=== PATIENT | female | born 1985 | race American Indian/Alaskan Native ===

== ENCOUNTER 2017-07-12 08:38 | Inpatient (IN) | payer OTHER ==
[2017-07-12] MEDS ORDERED: Albuterol 0.083% Inhal Sol (2.5 mg/3 mL) UD ONE (08:45)
[2017-07-12] MEDS: Albuterol-Ipratrop 3 mg / 0.5 (3 ml) UD ONE ×2 (08:45→09:28)
[2017-07-12] MEDS: Albuterol-Ipratrop 3 mg / 0.5 (3 ml) UD IH SCH ×4 (08:45→20:32)
--- NOTE | 2017-07-12 09:08 | ED PDOC ---
Arrival/HPI - General Chief Complaint: Shortness Of Breath Time Seen by Provider: 07/12/17 08:50 Historian: Patient - History of Present Illness Narrative History of Present Illness (Text): 07/12/17 08:26 A 32 year old female, whose past medical history includes asthma, hypertension, endometriosis and migraines, presents to the emergency department complaining of cough and exacerbation for 4 days. Patient states experiencing nasal congestion, chest discomfort she describes as "feeling tight", but denies of any fever, chills, abdominal pain, nausea, vomiting, or any other complaints. Patient reports having seasonal allergies and is a smoker. She notes whenever she attempts to quit smoking, she begins experiencing similar symptoms of asthma. PMD: Dr. Tolliver Time/Duration: < week (4 days ) Symptom Onset: Gradual Symptom Course: Unchanged Past Medical History - Provider Review Nursing Documentation Reviewed: Yes - Past History Past History: Non-Contributing - Infectious Disease Hx of Infectious Diseases: None - Tetanus Immunization Tetanus Immunization: Unknown - Reproductive Menopause: No - Cardiac Hx Hypertension: Yes - Pulmonary Hx Asthma: Yes - Neurological Hx Migraine: Yes - HEENT Hx HEENT Disorder: Yes (eyeglasses) - Renal Hx Renal Disorder: No - Endocrine/Metabolic Hx Endocrine Disorders: No - Hematological/Oncological Hx Blood Disorders: No - Integumentary Hx Dermatological Disorder: No - Musculoskeletal/Rheumatological Hx Falls: No - Gastrointestinal Hx Gastrointestinal Disorders: Yes (chronic constipation) - Genitourinary/Gynecological Hx Genitourinary Disorders: No Other/Comment: endometriosis - Psychiatric Hx Anxiety: Yes Hx Depression: Yes Hx Substance Use: Yes (quit pot 1 month ago) - Surgical History Hx Orthopedic Surgery: Yes (right shoulder) Other/Comment: leap procedure, ovarian cyst , tubal, c section - Anesthesia Hx Anesthesia: Yes Hx Anesthesia Reactions: No Hx Malignant Hyperthermia: No - Suicidal Assessment Feels Threatened In Home Enviroment: No Family/Social History - Physician Review Nursing Documentation Reviewed: Yes Family/Social History: No Known Family HX Smoking Status: Light Smoker < 10 Cigarettes Daily Hx Alcohol Use: Yes (on weekends) Frequency of alcohol use: Socially Hx Substance Use: Yes (quit pot 1 month ago) Hx Substance Use Treatment: No Allergies/Home Meds Allergies/Adverse Reactions: Allergies shellfish derived Allergy (Verified 07/12/17 08:47) ANAPHYLAXIS red 40 Allergy (Uncoded 08/17/16 17:13) ANAPHYLAXIS iv contrast Adverse Reaction (Uncoded 04/17/16 08:05) SHORTNESS OF BREATH Home Medications: Home Meds Medication Instructions Recorded Confirmed Albuterol 0.083% [Albuterol 0.083% 3 ml IH PRN PRN 02/09/13 07/12/17 Inhal Cami (2.5 mg/3 ml) UD] Albuterol HFA [Ventolin HFA 90 0.09 mg IH PRN PRN 08/17/16 07/12/17 mcg/actuation (8 g)] Cholecalciferol [Vitamin D 1000 IU] 50,000 unit PO QWK 08/17/16 07/12/17 Losartan [Cozaar] 50 mg PO DAILY 08/17/16 07/12/17 Review of Systems - Physician Review All systems were reviewed & negative as marked: Yes - Review of Systems Constitutional: absent: Fevers, Night Sweats Respiratory: SOB, Cough Cardiovascular: Chest Pain (chest discomfort described as "feeling tight") Gastrointestinal: absent: Abdominal Pain, Nausea, Vomiting Physical Exam Vital Signs Reviewed: Yes Vital Signs Temp Pulse Resp BP Pulse Ox 07/12/17 12:30 129 H 26 H 121/68 95 07/12/17 10:10 22 98 07/12/17 10:07 101 H 22 130/86 98 07/12/17 09:31 109 H 24 129/62 100 07/12/17 08:50 100 07/12/17 08:39 98.1 F 105 H 22 131/73 100 Temperature: Afebrile Blood Pressure: Normal Pulse: Tachycardic Respiratory Rate: Normal Appearance: Positive for: Uncomfortable Pain Distress: None Mental Status: Positive for: Alert and Oriented X 3 - Systems Exam Head: Present: Atraumatic, Normocephalic Pupils: Present: PERRL Extroacular Muscles: Present: EOMI Conjunctiva: Present: Normal Mouth: Present: Moist Mucous Membranes Neck: Present: Normal Range of Motion Respiratory/Chest: Present: Respiratory Distress, Wheezes, Decreased Breath Sounds, Rhonchi Cardiovascular: Present: Tachycardic Abdomen: Present: Normal Bowel Sounds. No: Tenderness, Distention, Peritoneal Signs Back: Present: Normal Inspection Upper Extremity: Present: Normal Inspection. No: Cyanosis, Edema Lower Extremity: Present: Normal Inspection. No: Edema Neurological: Present: GCS=15, CN II-XII Intact, Speech Normal Skin: Present: Warm, Dry, Normal Color. No: Rashes Psychiatric: Present: Alert, Oriented x 3, Normal Insight, Normal Concentration Medical Decision Making ED Course and Treatment: 07/12/17 08:30 Impression: 32 female with cough and exacerbation of asthma. Physical exam shows decreased breath sounds, rhonchi, wheezes, respiratory distress. Differential Diagnosis included but are not limited to: Asthma vs. Pneumonia Plan: -- EKG -- Labs -- Chest X-ray -- Duoneb -- IV Fluids -- Blood Culture -- Reassess and disposition Prior Visits: Notes and results from previous visits were reviewed. Patient was last seen in the emergency department on 08/17/2016 for left arm tightness. Patient was discharged. Progress Notes: EKG: Ordered, reviewed, and independently interpreted the EKG. Rate : 103 BPM Rhythm : Sinus tachycardia Interpretation : No ST-segment elevations or depressions, no T-wave inversions, normal intervals. Comparison : No previous EKG for comparison. - Lab Interpretations I have reviewed the lab results: Yes - RAD Interpretation Radiology Orders: 07/12/17 08:51 CHEST PORTABLE [RAD] Stat - Medication Orders Current Medication Orders: Discontinued Medications Albuterol Sulfate (Albuterol 0.083% Inhal Cami (2.5 Mg/3 Ml) Ud) Confirm Administered Dose 2.5 mg .ROUTE .STK-MED ONE Stop: 07/12/17 08:46 Last Admin: 07/12/17 08:58 Dose: Albuterol Sulfate (Albuterol 0.083% Inhal Cami (2.5 Mg/3 Ml) Ud) 2.5 mg IH STAT STA Stop: 07/12/17 12:08 Last Admin: 07/12/17 12:12 Dose: 2.5 mg Albuterol/Ipratropium (Duoneb 3 Mg/0.5 Mg (3 Ml) Ud) Confirm Administered Dose 3 ml .ROUTE .STK-MED ONE Stop: 07/12/17 08:46 Last Admin: 07/12/17 09:28 Dose: Albuterol/Ipratropium (Duoneb 3 Mg/0.5 Mg (3 Ml) Ud) 3 ml IH Q15M [facility] Stop: 07/12/17 09:31 Last Admin: 07/12/17 09:18 Dose: 3 ml Guaifenesin/Codeine Phosphate (Robitussin W/Codeine) 10 ml PO STAT STA Stop: 07/12/17 10:50 Last Admin: 07/12/17 10:55 Dose: 10 ml Methylprednisolone (Solu-Medrol) 125 mg IVP STAT STA Stop: 07/12/17 08:51 Last Admin: 07/12/17 08:58 Dose: 125 mg ED OBSERVATION Date of observation admission: 07/12/17 Time of observation admission: 08:26 - Observation admission statement Patient is being placed in observation because:: Exacerbation of asthma - Goals of Observation Goals of observation are:: Relief of symptoms and check of possible pneumonia - Progress Note Progress Note: 07/12/2017 09:30 Chest X-ray IMPRESSION: No active disease. Dictator : Salazar Rea MD 07/12/17 12:07 Patient is feeling better and is no longer wheezing, only coughing. No longer experiencing retractions. Will give patient one more treatment of albuterol. 07/12/17 14:06 Patient can not walk much without getting short of breathe and is uncomfortable when she has boughts of coughing. Will place her on observation under Dr. Tolliver 's service for Asthma Exacerbation. He is requesting consult with Cory for Respiratory. - Scribe Statement The provider has reviewed the documentation as recorded by the Grazyna Solano Provider Scribe Attestation: All medical record entries made by the Scribdewey were at my direction and personally dictated by me. I have reviewed the chart and agree that the record accurately reflects my personal performance of the history, physical exam, medical decision making, and the department course for this patient. I have also personally directed, reviewed, and agree with the discharge instructions and disposition. Disposition/Present on Arrival - Present on Arrival Any Indicators Present on Arrival: No History of DVT/PE: No History of Uncontrolled Diabetes: No Urinary Catheter: No History of Decub. Ulcer: No History Surgical Site Infection Following: None - Disposition Have Diagnosis and Disposition been Completed?: Yes Diagnosis: Asthma exacerbation Disposition: HOSPITALIZED Disposition Time: 14:10 Patient Plan: Observation Condition: STABLE
[2017-07-12 09:23] LABS: BASO # 0.02 K/mm3 (0.0-2.0); BASO % 0.2 % (0.0-3.0); EOS # 0.4 (0.0-0.7); EOS % 3.5 % (1.5-5.0); GRAN # 7.82 (1.4-6.5); GRAN % 61.3 % (50.0-68.0); HEMATOCRIT 38.2 % (36.0-48.0); LYMPH # 3.5 (1.2-3.4); LYMPH % 27.8 % (22.0-35.0); MEAN CORPUSCULAR HEMOGLOBIN 27.3 pg (25.0-35.0); MEAN CORPUSCULAR HGB CONC 33.2 g/dl (31.0-37.0); MEAN PLATELET VOLUME 9.7 fl (7.0-11.0); MONO # 0.9 (0.1-0.6); MONO % 7.2 % (1.0-6.0); RED CELL DISTRIBUTION WIDTH 13.7 % (11.5-14.5); WHITE BLOOD COUNT 12.7 10^3/ul (4.5-11.0)
[2017-07-12 09:29] LABS: BLOOD UREA NITROGEN 10 mg/dL (7-21); CALCIUM 9.2 mg/dL (8.4-10.5); CARBON DIOXIDE 24 mmol/L (21-33); CHLORIDE 106 mmol/L (98-107); GFR AFRICAN-AMERICAN > 60; GLUCOSE,RANDOM 87 mg/dL (70-110); POTASSIUM 4.3 mmol/L (3.6-5.0); SODIUM 142 mmol/L (132-148)
--- NOTE | 2017-07-12 09:32 | RAD ---
HISTORY: sob r/o pna COMPARISON: 08/17/2016 FINDINGS: LUNGS: No active pulmonary disease. PLEURA: No significant pleural effusion identified, no pneumothorax apparent. CARDIOVASCULAR: Normal. OSSEOUS STRUCTURES: No significant abnormalities. VISUALIZED UPPER ABDOMEN: Normal. OTHER FINDINGS: None. IMPRESSION: No active disease.
[2017-07-12] MEDS ORDERED: guaiFENesin-Codeine 100-10mg/5ml Syrup (5 ml) UD PO STA (10:49)
[2017-07-12] MEDS ORDERED: Albuterol 0.083% Inhal Sol (2.5 mg/3 mL) UD IH STA (12:07)
--- NOTE | 2017-07-12 12:56 | CARD ---
APPROVED REPORT EKG Measurement Heart [id number] <Conclusion> Sinus tachycardia Otherwise normal ECG
[2017-07-12] MEDS: guaiFENesin-Codeine 100-10mg/5ml Syrup (5 ml) UD PO PRN ×2 (16:11→22:31)
[2017-07-12] MEDS ORDERED: MethylPREDNISolone 40 mg Vial IVP SCH ×2 (17:00→22:00)
[2017-07-12 22:58] VITALS: BMI 32.4
[2017-07-12] MEDS ORDERED: Pneumococcal 23-Valent Vaccine IM ONE (22:59)
[2017-07-13] MEDS: Albuterol-Ipratrop 3 mg / 0.5 (3 ml) UD IH SCH ×5 (02:55→21:18)
--- NOTE | 2017-07-13 02:58 | HP ---
HISTORY OF PRESENT ILLNESS: I was called down to the emergency room today to take a look the Rani. She was very short of breath and wheezing. It has been going on for 4 days, she had multiple nebulizers treatment in the emergency room, but would not break, still feeling tight and we have to admit her to the hospital. She was given Solu-Medrol 125 mg in the ER to help her. She tells me whenever she tries to quit smoking this happens to her and she gets the cough that will not go away. PAST MEDICAL HISTORY: Includes asthma, hypertension, endometriosis, migraine. She has chronic constipation, anxiety and depression. PAST SURGICAL HISTORY: She had a right shoulder surgery. She had a LEEP procedure, ovarian cyst, tubal ligation, and . FAMILY HISTORY: No known family history. SOCIAL HISTORY: She still smokes cigarettes and she does drink alcohol on the weekend socially. She quit smoking marijuana a month ago she states. ALLERGIES: SHE IS ALLERGIC TO SHELLFISH, RED DYE 40 ALLERGY, AND IV CONTRAST. MEDICATIONS: She takes albuterol, Ventolin, vitamin D and Cozaar. REVIEW OF SYSTEMS: No acute vision changes or hearing changes. No sore throat. No neck pain. No chest pain or palpitations, but she is having shortness of breath and wheezing. No abdominal pain. No constipation or diarrhea. No leg pains. Not anxious at the present time. PHYSICAL EXAMINATION GENERAL: She is uncomfortable, short of breath on oxygen. VITAL SIGNS: She has 98.1 temperature, 129 pulse, 22 respiratory rate up to 26 respiratory rate, 130/86 blood pressure, 98%-95% O2 sat on room air. She also had some chest tightness which went away. HEENT: Head is atraumatic and normocephalic. Extraocular muscle intact. Pupils equally react to light and accommodation. Throat is moist. NECK: Supple. HEART: Regular rate. No tachy. LUNGS: Decreased breath sounds. Tight, no wheezes at this time. ABDOMEN: Soft. Positive bowel sounds. No guarding. No rebound. EXTREMITIES: No edema. NEUROLOGIC: GCS 15. Cranial nerves II through XII grossly intact. Speech is normal. Alert and oriented x3. SKIN: Warm and dry. LABORATORY DATA: She had multiple tests done. She had 142 sodium, potassium 4.3, BUN 10, creatinine 0.5, GFR is greater than 60, sugars 87, calcium is 9.2. White count drop to 12.7, hemoglobin 12.7, hematocrit 38.2 and platelets are 322. She had a chest x-ray which showed no acute disease. History of acute asthma. She will be on Solu-Medrol 40 q. 12 via nebulizer treatment, she will have oxygen, she will have her regular medication. She will have cough medicine. She will consult pulmonology. She was on observation hopefully get her out tomorrow, here for status asthmaticus and hopefully she will be improved by tomorrow. Kraig Tolliver DO
[2017-07-13] MEDS: guaiFENesin-Codeine 100-10mg/5ml Syrup (5 ml) UD PO PRN ×3 (04:07→20:54)
[2017-07-13] MEDS ORDERED: Albuterol-Ipratrop 3 mg / 0.5 (3 ml) UD IH PRN (06:56)
[2017-07-13] MEDS: Budesonide 0.5 mg/2 ml Inhal Susp UD IH SCH ×2 (07:24→21:18)
[2017-07-13 07:30] LABS: BASO # 0.01 K/mm3 (0.0-2.0); BASO % 0.1 % (0.0-3.0); GRAN # 13.6 (1.4-6.5); GRAN % 81.7 % (50.0-68.0); HEMATOCRIT 35.9 % (36.0-48.0); LYMPH # 2.1 (1.2-3.4); LYMPH % 12.6 % (22.0-35.0); MEAN CELL VOLUME 81.2 fl (80.0-105.0); MEAN CORPUSCULAR HEMOGLOBIN 26.7 pg (25.0-35.0); MEAN CORPUSCULAR HGB CONC 32.9 g/dl (31.0-37.0); MEAN PLATELET VOLUME 9.4 fl (7.0-11.0); MONO # 0.9 (0.1-0.6); MONO % 5.6 % (1.0-6.0); RED CELL DISTRIBUTION WIDTH 13.7 % (11.5-14.5); WHITE BLOOD COUNT 16.6 10^3/ul (4.5-11.0)
[2017-07-13 07:55] LABS: ALB/GLOB RATIO 1.2 (1.1-1.8); ALKALINE PHOSPHATASE 65 U/L (38-126); ALT/SGPT 31 U/L (7-56); AST/SGOT 29 U/L (14-36); BILIRUBIN,TOTAL 0.4 mg/dL (0.2-1.3); BLOOD UREA NITROGEN 10 mg/dL (7-21); CALCIUM 9.4 mg/dL (8.4-10.5); CARBON DIOXIDE 22 mmol/L (21-33); CHLORIDE 104 mmol/L (98-107); GFR AFRICAN-AMERICAN > 60; GLUCOSE,RANDOM 118 mg/dL (70-110); POTASSIUM 3.8 mmol/L (3.6-5.0); SODIUM 138 mmol/L (132-148); TOTAL PROTEIN 7.1 g/dL (5.8-8.3)
[2017-07-13] MEDS: MethylPREDNISolone 40 mg Vial IVP SCH ×3 (08:23→22:24)
[2017-07-13] MEDS ORDERED: Bisacodyl 5mg EC Tab PO ONE (08:24)
[2017-07-13] MEDS: levoFLOXacin 500 MG TAB PO SCH (09:18)
[2017-07-13] MEDS: Fluticasone Nasal 50 mcg/Spray NS SCH (09:18)
--- NOTE | 2017-07-13 09:55 | PN ---
SUBJECTIVE: She had a very rough night, did not sleep at all. She was coughing all night, wheezing, and short of breath. I discussed with pulmonary, Dr. Ray, and he says he cannot discharge her, she will probably be here for another 2 to 3 more days, so we made her an inpatient today. She is also constipated and in pain and shortness of breath and coughing, not feeling well. PHYSICAL EXAMINATION: VITAL SIGNS: She has a 98.1 temp, 88 pulse, 139/87 blood pressure, 21 respiratory rate, 96% O2 sat with 2 L nasal cannula. HEENT: Head is atraumatic, normocephalic. HEART: Regular rate. LUNGS: Decreased breath sounds bilaterally, just not breathing well. ABDOMEN: Soft and obese. EXTREMITIES: No edema. MEDICATIONS: She is currently on Cozaar, DuoNebs, Flonase, Levaquin, Motrin, Pulmicort, Robitussin, Sinarest, Solu-Medrol, and Tylenol. LABORATORY DATA: She has a 16.6 white count, 11.8 hemoglobin, 35.9 hematocrit with 316 platelets. Sodium 138, potassium 3.8, BUN 10, creatinine 0.5, GFR is greater than 60, sugar is 118, calcium is 9.4, total bilirubin is 0.4, AST is 29, ALT is 31, alkaline phosphatase 67, total protein is 7.1, albumin is 3.9, and globulin is 3.3. She is being seen by pulmonary. She is not doing that well respiratory cerrato, acute asthma and COPD kind of picture. We increased her steroids, alter medication. We are also going to give something for her bowels and some tramadol. ASSESSMENT: Acute asthma and chronic obstructive pulmonary disease. Kraig Tolliver DO
--- NOTE | 2017-07-13 11:04 | CON ---
DATE: 07/13/2017 REASON FOR CONSULTATION: Asthma. REFERRING PHYSICIAN: Dr. Tolliver. HISTORY OF PRESENT ILLNESS: The patient is a 32-year-old female, with past medical history significant for asthma, recurrent bronchitis, hypertension, who presented to the emergency room yesterday with a 4-day history of worsening of shortness of breath at rest, dyspnea on exertion, cough, and minimal sputum production. The patient does state that her chest feels "tight." However, the patient denies chest pain, coughing up of blood, or chest pain-may worse with deep respirations. The patient states that she "may" have had a temperature at home, however, she did not measure one. No history of chills or infectious exposure. No history of night sweats, weight loss, or appetite change prior to the above events. No history of leg or calf pains. No history of syncope or diaphoresis. No history of recent travel or trauma. REVIEW OF SYSTEMS: No history of nausea, vomiting, or diarrhea. No acute urinary symptoms. No new neurologic or musculoskeletal complaints. The patient does complaint of a stuffy, runny nose as of late. Rest of the review of systems is negative. ALLERGIES: TO SHELLFISH AND IV CONTRAST. SOCIAL HISTORY: Positive for active tobacco usage, also positive for occasional alcohol usage. FAMILY HISTORY: No inheritable disease. HOME MEDICATIONS: Include albuterol HFA, Cozaar, and Motrin. PHYSICAL EXAMINATION: GENERAL: The patient is not short of breath at rest. She is not using accessory muscles for breathing. VITAL SIGNS: Temperature is 98.1, pulse 88, respirations 20, and blood pressure 139/87. Oxygen saturation on room air is between 96-98%. HEENT: Normocephalic and atraumatic. No JVD. CARDIOVASCULAR: Positive S1 and S2. No S3 gallop. LUNGS: Decreased breath sounds at the bases. Mild bilateral rhonchi and wheezing are present. EXTREMITIES: No clubbing, cyanosis, or edema. Calves are nontender to palpation. GASTROINTESTINAL: Abdomen is soft, nontender, and nondistended. Bowel sounds are positive. SKIN: No acute rash. NEUROLOGIC: Limited at the present time. PERTINENT LABORATORY DATA: Chest x-ray was done yesterday and reviewed. There is no acute disease present. CBC: White count 12.7, hemoglobin 12.7, hematocrit 38.2, and platelets of 322K. Metabolic profile is completely within normal limits. IMPRESSION: 1. Acute bronchitis. 2. Asthma. 3. Acute rhinitis. 4. Hypertension. PLAN: The patient presents to [facility] ([facility]) with a 4-day history of worsening pulmonary symptoms. As above, she also complaints of upper respiratory symptoms over the past 4 days. I did review the chest x-ray as above. There is no active disease present. On physical exam, there is [id number] bronchospasm noted. I did speak with the nurse at length. The nurse stated that the patient does have a significant cough. I will increase the nebulizer treatments and increase the intravenous steroids this morning. I will also start nasal steroids. There have been no temperatures measured in the hospital. However, the patient "may" have had at one at home. I will start oral antibiotic therapy this morning. Additional pulmonary intervention will be based on the clinical status of the patient. I will discuss the above with Dr. Tolliver in the next few moments. Thank you very much for this pulmonary consultation. Calderon Ray MD FLORENCIO
[2017-07-14] MEDS: Albuterol-Ipratrop 3 mg / 0.5 (3 ml) UD IH SCH ×7 (00:45→23:48)
[2017-07-14] MEDS: guaiFENesin-Codeine 100-10mg/5ml Syrup (5 ml) UD PO PRN ×2 (05:48→18:16)
[2017-07-14] MEDS: MethylPREDNISolone 40 mg Vial IVP SCH ×3 (06:34→22:33)
[2017-07-14 07:20] LABS: MEAN CELL VOLUME 81.9 fl (80.0-105.0); MEAN PLATELET VOLUME 9.1 fl (7.0-11.0); WHITE BLOOD COUNT 20.6 10^3/ul (4.5-11.0)
[2017-07-14] MEDS: Budesonide 0.5 mg/2 ml Inhal Susp UD IH SCH ×2 (07:46→19:48)
--- NOTE | 2017-07-14 07:53 | PN ---
DATE: 07/14/2017 SUBJECTIVE: The patient appears more comfortable this morning. She is not short of breath at rest. PHYSICAL EXAMINATION VITAL SIGNS: Temperature is 98.6, pulse 85, respirations 18/20, blood pressure 126/83. Oxygen saturation on nasal cannula is 100%. HEENT: Normocephalic, atraumatic. NECK: No JVD. CARDIOVASCULAR: Positive S1 and S2. No S3 gallop. LUNGS: Decreased breath sounds at the bases. Less rhonchi. Less wheezing. EXTREMITIES: No clubbing, cyanosis, or edema. Calves are nontender to palpation. GASTROINTESTINAL: Abdomen is soft, nontender, nondistended. Bowel sounds are positive. SKIN: No acute rash. NEUROLOGIC: Limited at the present time. IMPRESSION: 1. Acute bronchitis. 2. Asthma, 3. Acute rhinitis, 4. Hypertension. PLAN: The patient appears comfortable this morning. She is not short of breath at rest. Overall, she is coughing less, but still has paroxysms of cough. She is feeling better. I also discussed the case with the nurse at length. The nurse also stated that the patient is doing better overall. On physical exam, there is less bronchospasm noted. I will continue with the current nebulizer treatments and decreased the intravenous steroids this morning. The patient remains on nasal steroids, as well as inhaled steroids. The patient also remains on antibiotic therapy. There are no temperatures noted. Clinical status of the patient is improved-compared to the initial hospital status. I will discuss the above with Dr. Tolliver. Calderon Ray MD MTDD
[2017-07-14 07:57] LABS: ALB/GLOB RATIO 1.2 (1.1-1.8); ALKALINE PHOSPHATASE 61 U/L (38-126); ALT/SGPT 34 U/L (7-56); AST/SGOT 28 U/L (14-36); BILIRUBIN,TOTAL 0.4 mg/dL (0.2-1.3); BLOOD UREA NITROGEN 9 mg/dL (7-21); CALCIUM 9.7 mg/dL (8.4-10.5); CARBON DIOXIDE 26 mmol/L (21-33); CHLORIDE 103 mmol/L (98-107); GFR AFRICAN-AMERICAN > 60; GLUCOSE,RANDOM 127 mg/dL (70-110); POTASSIUM 4.1 mmol/L (3.6-5.0); SODIUM 140 mmol/L (132-148); TOTAL PROTEIN 7.5 g/dL (5.8-8.3)
--- NOTE | 2017-07-14 08:48 | PN ---
DATE: 07/14/2017 SUBJECTIVE: The patient appears comfortable this morning. She is not short of breath at rest. PHYSICAL EXAMINATION VITAL SIGNS: Temperature is 98.0, pulse 78, respirations 18/20, blood pressure 125/61. Oxygen saturation on nasal cannula is 97%. HEENT: Normocephalic, atraumatic. NECK: No JVD. CARDIOVASCULAR: Systolic ejection murmur at the lower left sternal border. Questionable S3 gallop. LUNGS: Minimal basal crackles. No rhonchi or wheezing this morning. EXTREMITIES: Positive for mild edema. No cyanosis, no clubbing. Calves are nontender to palpation. GASTROINTESTINAL: Abdomen is soft, nontender, nondistended. Bowel sounds are positive. SKIN: No acute rash. NEUROLOGIC: Limited at the present time. IMPRESSION: 1. Acute mild congestive heart failure. 2. Mild bronchitis. 3. Chronic obstructive pulmonary disease. 4. Coronary artery disease. 5. Renal insufficiency. PLAN: The patient appears comfortable this morning. She is not short of breath at rest. She states her breathing is much better overall. On physical exam, her bronchospasm continues to resolve. In addition, the oxygen saturation on nasal cannula is 97%. I will continue with the current nebulizer treatments and inhaled steroids for now. Cardiology and renal evaluations are noted. Clinical status of the patient is definitely improved. I will discuss the above with the attending physician. Calderon Ray MD
[2017-07-14] MEDS: Fluticasone Nasal 50 mcg/Spray NS SCH (10:12)
[2017-07-14] MEDS: levoFLOXacin 500 MG TAB PO SCH (10:12)
--- NOTE | 2017-07-14 11:14 | PN ---
SUBJECTIVE: I saw her this morning in the room with severe coughing fit, short of breath, trying to stop the cough, she cannot, feels wheezy, hears the wheezes, very bad morning for her, despite being increased in Solu-Medrol, cough medicines, very tight cough, cannot stop cough for at least 10 minutes. PHYSICAL EXAMINATION VITAL SIGNS: 98.6 temperature, 85 pulse, 126/82 blood pressure, 22 respiratory rate, and 100% O2 saturation on room air. HEENT: Head is atraumatic, normocephalic. HEART: Regular rate. LUNGS: Decreased breath sounds. Congestion, wheezes, changes with cough, lots of coughing, cannot take a full deep breath. ABDOMEN: Soft, obese. EXTREMITIES: No edema. CURRENT MEDICATIONS: She is currently on Cozaar, Dulcolax now for the constipation. She is having DuoNebs, Flonase, Levaquin, Pulmicort, Robitussin, Singular, Solu-Medrol up to 40 twice a day, tramadol for pain, and Toradol IV for pain, she is getting worse, on Tylenol. LABORATORY DATA: He has 20.6 white count, could be she is on steroids,12.2 hemoglobin, 37 hematocrit, and 336 platelets. 140 sodium, potassium 4.1, BUN is 9, creatinine 0.5, GFR is greater than 60, sugar is 127, calcium is 9.7. Total bilirubin is 0.4, AST is 20, ALT is 34, alkaline phosphatase 61. Troponin is less than 7.1. Albumin is 4.1, globulin is 3.4. No growth on cultures. ASSESSMENT AND PLAN: She is being seen by Pulmonary, she just stopped breaking so far. She had acute bronchitis, acute asthma, hypertension, pain, short of breath, severe coughing spasms, she is on IV steroids, continue with aggressive pulmonary treatment and toilet, I will give her pain medications, Dulcolax suppository for constipation. As per pulmonary for cough and shortness of breath. Kraig Tolliver DO
[2017-07-15] MEDS: Albuterol-Ipratrop 3 mg / 0.5 (3 ml) UD IH SCH ×6 (03:34→23:49)
[2017-07-15] MEDS: guaiFENesin-Codeine 100-10mg/5ml Syrup (5 ml) UD PO PRN ×3 (06:33→18:07)
[2017-07-15 07:39] LABS: HEMATOCRIT 36.8 % (36.0-48.0); MEAN CORPUSCULAR HEMOGLOBIN 27.2 pg (25.0-35.0); MEAN CORPUSCULAR HGB CONC 33.2 g/dl (31.0-37.0); RED CELL DISTRIBUTION WIDTH 13.7 % (11.5-14.5); WHITE BLOOD COUNT 16.9 10^3/ul (4.5-11.0)
[2017-07-15] MEDS: Budesonide 0.5 mg/2 ml Inhal Susp UD IH SCH ×2 (07:41→20:19)
--- NOTE | 2017-07-15 08:03 | PN ---
PULMONARY NOTE DATE: 07/15/2017 SUBJECTIVE: The patient appears more comfortable this morning. She is not short of breath at rest. PHYSICAL EXAMINATION VITAL SIGNS: Temperature is 98.6, pulse is 88, respirations are 18, and blood pressure is 133/71. Oxygen saturation on nasal cannula is 100%. HEENT: Normocephalic and atraumatic. NECK: No JVD. CARDIOVASCULAR: Positive S1 and S2. No S3. LUNGS: Improved breath sounds at the bases. Less rhonchi. No wheezing this morning. EXTREMITIES: No clubbing, cyanosis, or edema. Calves are nontender to palpation. GASTROINTESTINAL: Abdomen is soft, nontender, and nondistended. Bowel sounds are positive. SKIN: No acute rash. NEUROLOGIC: Limited at the present time. IMPRESSION: 1. Acute bronchitis. 2. Asthma. 3. Acute rhinitis. 4. Hypertension. PLAN: The patient appears more comfortable this morning. She is not short of breath at rest. She is coughing less. I did discuss the case with the night nurse at length. The night nurse stated that she had a good night, with a definite decrease in her coughing. On physical exam, her bronchospasm is certainly less. I will continue with the current nebulizer treatments and current intravenous steroids (decreased yesterday) for now. The patient remains on antibiotic therapy. There are no temperatures noted. There is a leukocytosis - probably partly secondary to the intravenous steroids. Clinical status of the patient continues to slowly improve. I will discuss the above with Dr. Tolliver. Calderon Ray MD MTDFior
[2017-07-15 08:14] LABS: ALB/GLOB RATIO 1.2 (1.1-1.8); ALKALINE PHOSPHATASE 65 U/L (38-126); ALT/SGPT 40 U/L (7-56); AST/SGOT 36 U/L (14-36); BLOOD UREA NITROGEN 11 mg/dL (7-21); CALCIUM 9.5 mg/dL (8.4-10.5); CARBON DIOXIDE 26 mmol/L (21-33); CHLORIDE 100 mmol/L (95-110); GFR AFRICAN-AMERICAN > 60; GLUCOSE,RANDOM 117 mg/dL (70-110); POTASSIUM 4.1 mmol/L (3.6-5.0); SODIUM 137 mmol/L (132-148); TOTAL PROTEIN 7.3 g/dL (5.8-8.3)
[2017-07-15 08:37] LABS: BILIRUBIN,TOTAL 0.5 mg/dL (0.2-1.3)
[2017-07-15] MEDS: levoFLOXacin 500 MG TAB PO SCH (10:29)
[2017-07-15] MEDS: MethylPREDNISolone 40 mg Vial IVP SCH ×2 (10:30→21:35)
[2017-07-15] MEDS: Fluticasone Nasal 50 mcg/Spray NS SCH (10:33)
--- NOTE | 2017-07-15 10:54 | PN ---
DATE: SUBJECTIVE: As I walked past the room, I immediately heard a coughing. The coughing is persistent, but bed yesterday morning. She is starting to improve slight. I suppose she got a little bit of sleep, but not much. MEDICATIONS: She is on Cozaar, Dulcolax, albuterol, Flonase, Levaquin, Pulmicort, Robitussin, Singulair, Solu-Medrol, Toradol, Tylenol, and Ultram. PHYSICAL EXAMINATION: VITAL SIGNS: 98.6 temperature, 88 pulse, 133/71 blood pressure, 22 respiratory rate , and 100% O2 sat on 2 L. HEENT: Head is atraumatic and normocephalic. Throat is dry. NECK: Supple. HEART: Regular rate. LUNGS: She is actually moving more air this morning than yesterday, less congestion also in the lungs, I think it is the first day I see a tray in the corner. EXTREMITIES: Have no edema. LABORATORY DATA: She has 16.9 white count, came better from 20 yesterday; 12.2 hemoglobin, 36.8 hematocrit with 347 platelets. Sodium 140, potassium 4.1, BUN 9, creatinine 0.5, GFR is greater than 60, sugar is 127, calcium is 9.7, total bili is 0.4, AST is 28, ALT is 34, alk phos is 61, total protein is 7.5, and albumin is 4.1. ASSESSMENT AND PLAN: I am hoping we to decrease her Solu-Medrol and may be get her out tomorrow if she is improving. I will discuss this with custom seamstress. I encouraged her to get out of bed to chair and to ambulate if she can and we will check her labs tomorrow and she is here for acute bronchitis, acute asthma, hypertension, and shortness of breath. Kraig Tolliver DO [facility]
[2017-07-15] MEDS ORDERED: Bisacodyl 5mg EC Tab PO ONE (20:53)
[2017-07-16] MEDS: guaiFENesin-Codeine 100-10mg/5ml Syrup (5 ml) UD PO PRN ×2 (01:01→06:30)
[2017-07-16] MEDS: Albuterol-Ipratrop 3 mg / 0.5 (3 ml) UD IH SCH ×2 (04:51→08:52)
--- NOTE | 2017-07-16 07:03 | PN ---
DATE: 07/16/2017 SUBJECTIVE: The patient appears very comfortable this morning. She is not short of breath at rest. PHYSICAL EXAMINATION: VITAL SIGNS: Temperature is 98.1, pulse 80, respirations 18, last blood pressure recorded 135/80. Oxygen saturation on nasal cannula is 98% to 100%. HEENT: Normocephalic and atraumatic. NECK: No JVD. CARDIOVASCULAR: Positive S1 and S2. No S3 gallop. LUNGS: Much less/very minimal rhonchi. No wheezing. EXTREMITIES: No clubbing, cyanosis, or edema. Calves are nontender to palpation. GASTROINTESTINAL: Abdomen is soft, nontender, and nondistended. Bowel sounds are positive. SKIN: No acute rash. NEUROLOGIC: Limited at the present time. IMPRESSION: 1. Acute bronchitis. 2. Asthma. 3. Acute rhinitis. 4. Hypertension. PLAN: The patient appears very comfortable this morning. She is not short of breath at rest. She is coughing much less. She does state to feeling much better overall. I also discussed the case with the nurse at length. The nurse confirmed that the patient is coughing less, and doing very well overall. On physical exam, her bronchospasm continues to resolve. In addition, the oxygen saturation on nasal cannula is 98% to 100%. I will continue with the current nebulizer treatments and decrease the intravenous steroids this morning. The patient remains on antibiotic therapy. There are no temperatures noted. The leukocytosis is improved/decreased. Clinical status of the patient is significantly improved. I will discuss the above with Dr. Tolliver later this morning. Calderon Ray MD [facility]
[2017-07-16 07:23] LABS: HEMATOCRIT 36.9 % (36.0-48.0); MEAN CELL VOLUME 81.8 fl (80.0-105.0); MEAN CORPUSCULAR HEMOGLOBIN 26.8 pg (25.0-35.0); MEAN CORPUSCULAR HGB CONC 32.8 g/dl (31.0-37.0); MEAN PLATELET VOLUME 9.1 fl (7.0-11.0); RED CELL DISTRIBUTION WIDTH 13.6 % (11.5-14.5); WHITE BLOOD COUNT 16.3 10^3/ul (4.5-11.0)
[2017-07-16 07:29] LABS: ALB/GLOB RATIO 1.2 (1.1-1.8); ALKALINE PHOSPHATASE 60 U/L (38-126); ALT/SGPT 45 U/L (7-56); AST/SGOT 24 U/L (14-36); BILIRUBIN,TOTAL 0.3 mg/dL (0.2-1.3); BLOOD UREA NITROGEN 12 mg/dL (7-21); CALCIUM 9.2 mg/dL (8.4-10.5); CARBON DIOXIDE 28 mmol/L (21-33); CHLORIDE 100 mmol/L (98-107); GFR AFRICAN-AMERICAN > 60; GLUCOSE,RANDOM 107 mg/dL (70-110); POTASSIUM 4.2 mmol/L (3.6-5.0); SODIUM 138 mmol/L (132-148)
[2017-07-16] MEDS: Budesonide 0.5 mg/2 ml Inhal Susp UD IH SCH (08:52)
[2017-07-16 09:25] VITALS: BP 134/105; PULSE 92; RESP 22; TEMP 97.9; O2SAT 99
[2017-07-16] MEDS: levoFLOXacin 500 MG TAB PO SCH (09:41)
[2017-07-16] MEDS: Fluticasone Nasal 50 mcg/Spray NS SCH (09:44)
[2017-07-16] MEDS ORDERED: MethylPREDNISolone 40 mg Vial IVP SCH (10:00)
--- NOTE | 2017-07-17 01:14 | DS ---
HISTORY OF PRESENT ILLNESS: She is comfortably in bed, walking in the room. Also she is breathing better, less cough but still persistent. Discussed with Pulmonary. They are very happy with her. She can be discharged today. She will be on Cozaar, DuoNebs, Flonase, Levaquin for 4 more days, Phenergan DM, Singulair, Tramadol. Also prednisone 10 mg tablets 4 for 3 days, 3 for 3 days, 2 for 3 days and 1 for 3 days. PHYSICAL EXAMINATION: VITAL SIGNS: 98.1 temperature, 75 pulse, 135/80 blood pressure, 20 respiratory rate , and 90% O2 sat on room air. HEENT: Head is atraumatic and normocephalic. HEART: Regular rate. LUNGS: Decreased breath sounds but clear. No wheezes, rhonchi, or rales. ABDOMEN: Soft. EXTREMITIES: No edema. LABORATORY DATA: She has a 16.3 white count on steroid, 12.1 hemoglobin, 36.9 hematocrit with a 336 platelets. Sodium 138, potassium 4.2, BUN 12, creatinine 0.6, GFR is greater than 60, sugar is 107, calcium is 9.2, total bili is 0.3, AST is 24, ALT is 45, alk phos is 60, total protein is 7.0, and albumin is 3.8. ASSESSMENT AND PLAN: She was seen by Dr. Ray today who suggested she be discharged, changed to p.o. and discharged. We will follow her in the office for the next 4 days. She also continues to cough a little bit. We see her for asthmatic bronchitis, asthma, acute rhinitis, hypertension. Kraig Tolliver DO
== END 2017-07-16 11:58 | disposition home or self-care (01) | DRG 96 ==
LOC: ED 08:38 → EROBSV 08:52 → ERH 14:06 → 5RSO 15:39 → OBSVTOIN 07-13 08:19
PROVIDERS: ADMIT Family Medicine; ATTEND Family Medicine
DX: J45.901 Unspecified asthma with (acute) exacerbation (principal); J44.0 Chronic obstructive pulmonary disease with (acute) lower respiratory infection; J20.9 Acute bronchitis, unspecified; I10 Essential (primary) hypertension; J00 Acute nasopharyngitis [common cold]; K59.00 Constipation, unspecified; Z79.899 Other long term (current) drug therapy; F17.210 Nicotine dependence, cigarettes, uncomplicated; G43.909 Migraine, unspecified, not intractable, without status migrainosus; F41.9 Anxiety disorder, unspecified; F32.89 Other specified depressive episodes; Z87.892 Personal history of anaphylaxis; Z91.041 Radiographic dye allergy status; Z91.013 Allergy to seafood; Z91.048 Other nonmedicinal substance allergy status; R40.2412 Glasgow coma scale score 13-15, at arrival to emergency department

== ENCOUNTER 2017-10-06 22:40 | Inpatient (IN) | payer OTHER ==
[2017-10-06 22:42] VITALS: BMI 34.3
[2017-10-06] MEDS: Albuterol-Ipratrop 3 mg / 0.5 (3 ml) UD IH SCH ×2 (23:28→23:57)
[2017-10-07 00:23] LABS: BASO # 0.01 K/mm3 (0.0-2.0); BASO % 0.1 % (0.0-3.0); EOS # 0.5 (0.0-0.7); EOS % 4.4 % (1.5-5.0); GRAN # 5.14 (1.4-6.5); GRAN % 49.5 % (50.0-68.0); HEMATOCRIT 37.1 % (36.0-48.0); LYMPH # 4.1 (1.2-3.4); LYMPH % 39.3 % (22.0-35.0); MEAN CELL VOLUME 83.9 fl (80.0-105.0); MEAN CORPUSCULAR HEMOGLOBIN 26.9 pg (25.0-35.0); MEAN CORPUSCULAR HGB CONC 32.1 g/dl (31.0-37.0); MEAN PLATELET VOLUME 9.7 fl (7.0-11.0); MONO # 0.7 (0.1-0.6); MONO % 6.7 % (1.0-6.0); RED CELL DISTRIBUTION WIDTH 13.1 % (11.5-14.5); WHITE BLOOD COUNT 10.4 10^3/ul (4.5-11.0)
[2017-10-07 00:29] LABS: ALB/GLOB RATIO 1.2 (1.1-1.8); ALKALINE PHOSPHATASE 66 U/L (38-126); ALT/SGPT 26 U/L (7-56); AST/SGOT 25 U/L (14-36); BILIRUBIN,TOTAL 0.2 mg/dL (0.2-1.3); BLOOD UREA NITROGEN 10 mg/dL (7-21); CALCIUM 9.1 mg/dL (8.4-10.5); CARBON DIOXIDE 23 mmol/L (21-33); CHLORIDE 105 mmol/L (98-107); GFR AFRICAN-AMERICAN > 60; GLUCOSE,RANDOM 109 mg/dL (70-110); POTASSIUM 3.9 mmol/L (3.6-5.0); SODIUM 139 mmol/L (132-148); TOTAL PROTEIN 6.9 g/dL (5.8-8.3)
[2017-10-07] MEDS ORDERED: Magnesium Sulfate 2 GM in Sodium Chloride 0.9% 100 ML IVPB ONE (00:33)
[2017-10-07] MEDS: Albuterol-Ipratrop 3 mg / 0.5 (3 ml) UD IH SCH ×4 (00:53→20:08)
[2017-10-07] MEDS ORDERED: guaiFENesin-Codeine 100-10mg/5ml Syrup (5 ml) UD PO STA (01:27)
[2017-10-07] MEDS ORDERED: Albuterol-Ipratrop 3 mg / 0.5 (3 ml) UD IH STA (01:44)
--- NOTE | 2017-10-07 02:40 | ED PDOC ---
Arrival/HPI - General Historian: Patient - History of Present Illness Symptom Onset: Gradual Symptom Course: Worsening <Mallory Nuñez - Last Filed: 10/07/17 03:13> <Raphael Foy - Last Filed: 10/07/17 03:49> - General Chief Complaint: Cough, Cold, Congestion Time Seen by Provider: 10/06/17 23:05 - History of Present Illness Narrative History of Present Illness (Text): 10/07/17 03:01 32yr old female with hx of asthma presents today with cough and cold symptoms x 4 days with continued sob and coughing and wheezing since yesterday. pt c/o asthma exacerbation. states she always gets like this when she gets a cold and when she quits smoking. pt denies cp. pt states she has been cough so much that she has been vomiting. denies abdominal pain. pt states she has been using nebulizer at home without improvement in symptoms. pt states she was recently hospitalized for similar symptoms. pt states + sick contacts. denies fever/ chills. no back pain. no other complaints. (Mallory Nuñez) Past Medical History - Provider Review Nursing Documentation Reviewed: Yes - Travel History Have you recently traveled outside [place] w/in the past 3 mons?: No - Past History Past History: Non-Contributing - Infectious Disease Hx of Infectious Diseases: None - Tetanus Immunization Tetanus Immunization: Unknown - Cardiac Hx Cardiac Disorders: Yes Hx Hypertension: Yes - Pulmonary Hx Respiratory Disorders: Yes Hx Asthma: Yes Hx Bronchitis: Yes - Neurological Hx Neurological Disorder: Yes Hx Migraine: Yes - HEENT Hx HEENT Disorder: Yes (eyeglasses) - Renal Hx Renal Disorder: No - Endocrine/Metabolic Hx Endocrine Disorders: No - Hematological/Oncological Hx Blood Disorders: No - Integumentary Hx Dermatological Disorder: No - Musculoskeletal/Rheumatological Hx Musculoskeletal Disorders: No Hx Falls: No - Gastrointestinal Hx Gastrointestinal Disorders: Yes (chronic constipation) - Genitourinary/Gynecological Hx Genitourinary Disorders: Yes Other/Comment: endometriosis - Psychiatric Hx Psychophysiologic Disorder: Yes Hx Anxiety: Yes Hx Depression: Yes Hx Substance Use: No - Surgical History Hx Orthopedic Surgery: Yes (right shoulder) Other/Comment: leap procedure, ovarian cyst , tubal, c section - Anesthesia Hx Anesthesia: Yes Hx Anesthesia Reactions: No Hx Malignant Hyperthermia: No - Suicidal Assessment Feels Threatened In Home Enviroment: No <Mallory Nuñez - Last Filed: 10/07/17 03:13> Family/Social History - Physician Review Nursing Documentation Reviewed: Yes Family/Social History: Unknown Family HX Smoking Status: Current Some Days Smoker Hx Alcohol Use: No Hx Substance Use: No Hx Substance Use Treatment: No <KenyonRichie brianheath Gauthier - Last Filed: 10/07/17 03:13> Allergies/Home Meds <KenyonsnehalMallory T - Last Filed: 10/07/17 03:13> <Raphael Foy - Last Filed: 10/07/17 03:49> Allergies/Adverse Reactions: Allergies shellfish derived Allergy (Verified 07/12/17 21:54) ANAPHYLAXIS red 40 Allergy (Uncoded 07/12/17 21:54) ANAPHYLAXIS iv contrast Adverse Reaction (Uncoded 07/12/17 21:54) SHORTNESS OF BREATH Home Medications: Home Meds Medication Instructions Recorded Confirmed Cholecalciferol [Vitamin D 1000 IU] 50,000 unit PO QWK 08/17/16 10/06/17 Review of Systems - Review of Systems Constitutional: absent: Fatigue, Fevers ENT: Sinus Congestion. absent: Sore Throat Respiratory: SOB, Cough, Wheezing Cardiovascular: absent: Chest Pain Gastrointestinal: Vomiting. absent: Abdominal Pain, Nausea Genitourinary Female: absent: Dysuria, Frequency Musculoskeletal: absent: Arthralgias, Back Pain Skin: absent: Rash, Pruritis Neurological: absent: Headache, Dizziness Psychiatric: absent: Anxiety, Depression, Suicidal Ideation <Richie Nuñezheath Gauthier - Last Filed: 10/07/17 03:13> Physical Exam Vital Signs Reviewed: Yes Temperature: Afebrile Blood Pressure: Hypertensive Pulse: Tachycardic Respiratory Rate: Normal Appearance: Positive for: Well-Appearing, Non-Toxic, Comfortable Pain Distress: None Mental Status: Positive for: Alert and Oriented X 3 - Systems Exam Head: Present: Atraumatic Mouth: Present: Moist Mucous Membranes Neck: Present: Normal Range of Motion, Trachea Midline Respiratory/Chest: Present: Wheezes, Decreased Breath Sounds, Rhonchi. No: Clear to Auscultation, Respiratory Distress, Accessory Muscle Use Cardiovascular: Present: Tachycardic Abdomen: No: Tenderness, Distention, Rebound, Guarding Neurological: Present: GCS=15, Speech Normal Skin: Present: Warm, Dry, Normal Color. No: Rashes Psychiatric: Present: Alert, Oriented x 3 <Mallory Nuñez - Last Filed: 10/07/17 03:13> Vital Signs Temp Pulse Resp BP Pulse Ox 10/07/17 03:11 104 H 18 96 10/07/17 02:46 112 H 18 158/98 H 92 L 10/07/17 00:50 101 H 20 152/93 H 98 10/06/17 22:48 99.2 F 109 H 20 152/92 H 93 L Medical Decision Making <Mallory Nuñez - Last Filed: 10/07/17 03:13> <Raphael Foy - Last Filed: 10/07/17 03:49> ED Course and Treatment: 10/07/17 03:07 32-year-old female with asthma exacerbation complaining of cough and shortness of breath with a 4 day history of cold symptoms. Positive sick contacts CBC within normal limits CMP within normal limits Chest x-ray shows no infiltrate or effusion Patient given 3 duo nebs in the emergency room and Solu-Medrol 125 IV Patient given 2 g of magnesium iv Patient reassessment: Patient with continued cough and shortness of breath despite treatments. Case discussed in depth with Dr. Tolliver accepts observational status admission for asthma exacerbation Patient seen and evaluated by Dr. Foy at bedside. Impression: Cough, asthma exacerbation admit with pulm consult . (Mallory Nuñez) - Lab Interpretations Lab Results: 10/06/17 23:59 10/06/17 23:59 Lab Results 10/06/17 23:59: WBC 10.4 D, RBC 4.42, Hgb 11.9 L, Hct 37.1, MCV 83.9, MCH 26.9 , MCHC 32.1, RDW 13.1, Plt Count 292, MPV 9.7, Gran % 49.5 L, Lymph % (Auto) 39.3 H, [place] % (Auto) 6.7 H, Eos % (Auto) 4.4, Baso % (Auto) 0.1, Gran # 5.14, Lymph # 4.1 H, [place] # 0.7 H, Eos # 0.5, Baso # 0.01 10/06/17 23:59: Sodium 139, Potassium 3.9, Chloride 105, Carbon Dioxide 23, Anion Gap 16, BUN 10, Creatinine 0.8, Est GFR ( Amer) > 60, Est GFR (Non- Af Amer) > 60, Random Glucose 109, Calcium 9.1, Total Bilirubin 0.2, AST 25, ALT 26, Alkaline Phosphatase 66, Total Protein 6.9, Albumin 3.7, Globulin 3.1, Albumin/Globulin Ratio 1.2 - RAD Interpretation Radiology Orders: 10/06/17 23:22 CHEST PORTABLE [RAD] Stat - Medication Orders Current Medication Orders: Discontinued Medications Albuterol/Ipratropium (Duoneb 3 Mg/0.5 Mg (3 Ml) Ud) 3 ml IH Q15M ISAIAH Stop: 10/07/17 00:01 Last Admin: 10/07/17 00:53 Dose: 3 ml Albuterol/Ipratropium (Duoneb 3 Mg/0.5 Mg (3 Ml) Ud) 3 ml IH STAT STA Stop: 10/07/17 01:45 Last Admin: 10/07/17 02:12 Dose: 3 ml Guaifenesin/Codeine Phosphate (Robitussin W/Codeine) 5 ml PO STAT STA Stop: 10/07/17 01:28 Last Admin: 10/07/17 02:12 Dose: 5 ml Magnesium Sulfate 2 gm/ Sodium (Chloride) 104 mls @ 102 mls/hr IVPB ONCE ONE Stop: 10/07/17 01:34 Last Admin: 10/07/17 00:57 Dose: 102 mls/hr eMAR Start Stop Document 10/07/17 00:57 GMD (Rec: 10/07/17 00:57 GMD [facility] [id number]) Intravenous Solution Start Date 10/07/17 Start Time 00:57 End Date 10/07/17 End time 01:59 Total Infusion Time 62 Methylprednisolone (Solu-Medrol) 125 mg IVP STAT STA Stop: 10/06/17 23:23 Last Admin: 10/06/17 23:57 Dose: 125 mg IVP Administration Document 10/06/17 23:57 GMD (Rec: 10/06/17 23:57 GMD [facility] [id number]) Charges for Administration # of IVP Administrations 1 - PA / FORMULA MAKER / Resident Statement IBETH has reviewed & agrees with the documentation as recorded. MD/DO has examined the patient and agrees with the treatment plan. <Raphael Foy - Last Filed: 10/07/17 03:49> Disposition/Present on Arrival - Present on Arrival Any Indicators Present on Arrival: No History of DVT/PE: No History of Uncontrolled Diabetes: No Urinary Catheter: No History of Decub. Ulcer: No History Surgical Site Infection Following: None - Disposition Have Diagnosis and Disposition been Completed?: Yes Disposition Time: 03:09 <Mallory Nuñez - Last Filed: 10/07/17 03:13> <Raphael Foy - Last Filed: 10/07/17 03:49> - Disposition Diagnosis: Asthma exacerbation Disposition: HOSPITALIZED Patient Problems: Current Active Problems Problem Status Onset Asthma exacerbation Acute Condition: FAIR
[2017-10-07] MEDS ORDERED: Albuterol-Ipratrop 3 mg / 0.5 (3 ml) UD IH PRN (06:42)
[2017-10-07] MEDS ORDERED: Fluticasone Nasal 50 mcg/Spray NS STA (06:44)
[2017-10-07] MEDS: MethylPREDNISolone 40 mg Vial IVP SCH ×3 (08:37→23:44)
[2017-10-07] MEDS: Budesonide 0.5 mg/2 ml Inhal Susp UD IH SCH ×2 (08:47→20:10)
--- NOTE | 2017-10-07 08:59 | RAD ---
HISTORY: Cough. Portable study 23:34. COMPARISON: No prior. FINDINGS: LUNGS: No active pulmonary disease. PLEURA: No significant pleural effusion identified, no pneumothorax apparent. CARDIOVASCULAR: Normal. OSSEOUS STRUCTURES: No significant abnormalities. VISUALIZED UPPER ABDOMEN: Normal. OTHER FINDINGS: None. IMPRESSION: No active disease. Concordant results with the preliminary interpretation rendered by the emergency department physician procedure.
--- NOTE | 2017-10-07 09:04 | CON ---
DATE: 10/07/2017 PULMONARY CONSULTATION REFERRING PHYSICIAN: Kraig Tolliver DO REASON FOR CONSULTATION: Asthma. HISTORY OF PRESENT ILLNESS: The patient is a 32-year-old female, with past medical history significant for asthma, recurrent bronchitis, recurrent sinusitis, who presents to [facility] with worsening shortness of breath at rest, dyspnea on exertion, cough, and sputum production for the past 4 days. There is no history of chest pain, coughing up of blood, or chest pain - made worse with deep respirations. The patient did present to the emergency room with low-grade fevers (99.2). No history of chills. The patient does state that her kids were "sick" at home. No history of night sweats, weight loss or appetite change prior to the above events. No history of leg or calf pains. No history of syncope or diaphoresis. No history of recent travel or trauma. REVIEW OF SYSTEMS: The patient does state to a runny nose and nasal congestion over the past 4 days. No history of nausea, vomiting or diarrhea. No acute urinary symptoms. No new neurologic or musculoskeletal complaints. Rest of the review of systems negative. ALLERGIES: SHELLFISH AND IV CONTRAST. SOCIAL HISTORY: Positive for tobacco, negative for alcohol. FAMILY HISTORY: No inheritable diseases. HOME MEDICATIONS: Include Ultram, Levaquin, Phenergan, Singulair, Cozaar, Motrin, Flonase, vitamin D and DuoNeb. PHYSICAL EXAMINATION: GENERAL: The patient is not short of breath at rest. She is not using accessory muscles for breathing. VITAL SIGNS: Temperature is 99.2, pulse 104, respirations 18, blood pressure 158/98. Oxygen saturation on room air is 96%. HEENT: Normocephalic, atraumatic. NECK; No JVD. CARDIOVASCULAR: Positive S1, S2. No S3 gallop. LUNGS: Decreased breath sounds at the bases. [id number] rhonchi and wheezing bilaterally. EXTREMITIES: No clubbing, cyanosis or edema. Calves are nontender to palpation. GI: Abdomen is soft, nontender and nondistended. Bowel sounds are positive. SKIN: No acute rash. NEUROLOGIC: Exam limited at the present time. PERTINENT LABORATORY DATA: Chest x-ray was done late last night and reviewed. It shows no active disease. Official results are pending. CBC: White count 10.4, hemoglobin 11.9, hematocrit 37.1, platelets of 292,000. Complete metabolic profile - all values within normal limits. IMPRESSION: 1. Acute bronchitis. 2. Asthma. 3. Acute sinusitis. 4. Hypertension. PLAN: The patient presents to [facility] with a 4-day history of worsening pulmonary symptoms. In addition, the patient also complains of nasal congestion and a runny nose for the past 4 days. I did review the chest x-ray as above. It shows no acute disease. On physical exam, the patient is in moderate bronchospasm. There is no significant alveolar-arterial gradient. Oxygen saturation on room air is 96%. I will start the patient on nebulizer treatments and intravenous steroids this morning. Due to her upper respiratory tract symptoms, I will also start nasal Flonase. Lastly, the patient does have a long history of smoking and infectious exposure(kids). I will place the patient on oral Zithromax this morning. The patient does feel much better this morning - compared to the past few days. She is clinically improved. Additional pulmonary intervention will be based on the clinical status of the patient. I will discuss the above with Dr. Tolliver later this morning. Thank you very much for this pulmonary consultation. Calderon Ray MD [facility]
[2017-10-07] MEDS ORDERED: Cholecalciferol 1,000 INTLU TAB PO SCH ×2 (10:00)
[2017-10-07] MEDS ORDERED: Fluticasone Nasal 50 mcg/Spray NS SCH (10:00)
[2017-10-07] MEDS: Fluticasone Nasal 50 mcg/Spray NS SCH (11:52)
--- NOTE | 2017-10-07 19:27 | HP ---
HISTORY OF PRESENT ILLNESS: I know her very well. She was in the office. She has asthma. She had bronchitis. She was put on outpatient antibiotics, I believe it was Levaquin, and she is now here worsening. She is having an asthma attack with wheezing. She is coughing and wheezing for four days, could be an asthma exacerbation. She has been doing this for few days; now about three to four days, also vomiting, she wheezes, has nebulizer at home. PAST MEDICAL HISTORY: Asthma, hypertension, bronchitis, migraines, she wears eyeglasses, chronic constipation, endometriosis. She has anxiety and depression. She had right shoulder surgery, orthopedics. She had LEEP procedure, ovarian cyst, tubal ligation, and . FAMILY HISTORY: Has hypertension and diabetes in the family. SOCIAL HISTORY: She still smokes. No alcohol. No drugs. ALLERGIES: SHE IS ALLERGIC TO SHELLFISH, RED DYE, IV CONTRAST. MEDICATIONS: She takes a few medicines at home. She was on albuterol, Levaquin, ibuprofen, promethazine, prednisone, tramadol, losartan, fluticasone, Singulair, and vitamin DELUSIONS, and apparently, she got worse on Levaquin. She had never consult with Pulmonology. REVIEW OF SYSTEMS: No acute vision or hearing changes. No sinus congestion. There is coughing. There is wheezing. There is shortness of breath. No chest pain. Has vomiting. No abdominal pain or nausea. There is constipation. No problems with urinating. There is no back pain. No rashes or ulcers. No headaches or dizziness. No anxiety or depression, although she does have it, none now. PHYSICAL EXAMINATION: GENERAL: She is alert and oriented and talking to me well and after couple of sentences, she starts get wheezing and coughing. VITAL SIGNS: She has a 99.2 temperature, 112 pulse, 20 respiratory rate, 158/98 blood pressure, and 92% O2 sat. HEENT: Head is atraumatic, normocephalic. Membranes are dry. NECK: Supple. No JVD. HEART: Regular rate. Normal S1 and S2. LUNGS: Have wheezing. Decreased breath sounds. There are rhonchi. There is congestion and coughing. HEART: Tachycardic, regular rate. ABDOMEN: Soft and nontender. Positive bowel sounds. No guarding. No rebound. No CVA tenderness. NEUROLOGIC: GCS is 15. Cranial nerves II through XII grossly intact. Speech is normal. SKIN: Warm and dry. No apparent rashes or ulcers. Alert and oriented x3. No sweating. Thyroid midline. No palpable appreciable lymphadenopathy. LABORATORY DATA: Chest x-ray is pending. She has a 139 sodium, potassium 3.9, BUN 10, creatinine 0.8, GFR is greater than 60, sugar is 109, calcium is 9.1, total bilirubin is 0.2. AST is 25, ALT is 26, and alkaline phosphatase 56, total protein 6.9, albumin 3.7, globulin 3.1. Her white count is 10.4, hemoglobin 11.9, hematocrit 37.1, and platelets of 292. She had never consult with Pulmonary. She was given medications for her blood pressure, DuoNeb, Flonase, IV Solu-Medrol, Pulmicort, cough meds, Singulair, Solu-Medrol, vitamin D, and Zithromax. IMPRESSION: We will check her labs tomorrow. We will treat her with aggressive treatment and care. She has failed outpatient treatment. She is here with COPD, asthma, bronchitis versus pneumonia picture, and hopefully, she will improve. Continue with aggressive treatment and care on Rani [place]erta. Kraig Tolliver DO MTDD
[2017-10-07] MEDS ORDERED: guaiFENesin DM 200 mg-20 mg/10 ml UD PO ONE (21:41)
[2017-10-07] MEDS ORDERED: guaiFENesin 200 mg/10 ml Syrup UD PO ONE (22:22)
[2017-10-08] MEDS: Albuterol-Ipratrop 3 mg / 0.5 (3 ml) UD IH SCH ×4 (01:19→20:35)
[2017-10-08] MEDS: MethylPREDNISolone 40 mg Vial IVP SCH ×3 (05:45→22:46)
[2017-10-08] MEDS: Budesonide 0.5 mg/2 ml Inhal Susp UD IH SCH ×2 (08:17→20:35)
--- NOTE | 2017-10-08 09:10 | PN ---
DATE: 10/08/2017 PULMONARY PROGRESS NOTE SUBJECTIVE: The patient was seen and examined at the bedside. She is coughing a lot, but states that her shortness of breath is improved. She is on Solu-Medrol 40 mg twice a day and azithromycin as well as DuoNeb. PHYSICAL EXAMINATION: VITAL SIGNS: Her blood pressure is 130/70, respirations 20, pulse is 88 and pulse oximetry is 98 on room air. HEENT: Examination of head, ear, nose and throat is within normal limits. NECK: Supple. No jugular vein distentions. CHEST: Symmetrical. LUNGS: Bilateral scattered rhonchi and few expiratory wheezes. GASTROINTESTINAL: Soft, nontender. No organomegaly. EXTREMITIES: No pedal edema. SKIN: No acute skin rash. NEUROLOGIC: No focal deficits. ASSESSMENT: 1. Acute bronchitis. 2. Exacerbation of bronchial asthma. 3. Acute sinusitis. PLAN: The patient will continue with current treatment with DuoNeb as well as antibiotic azithromycin as well as Solu-Medrol, I would keep her on current dose of 40 mg twice a day and probably start tapering tomorrow. She will be seen by Dr. Tolliver and discharge plans are per Dr. Tolliver. Wiley Aleman MD
[2017-10-08] MEDS: Promethazine DM 6.25 mg-15 mg/5 ml Syrup PO SCH ×3 (10:30→17:20)
[2017-10-08] MEDS: Fluticasone Nasal 50 mcg/Spray NS SCH (10:32)
[2017-10-08] MEDS ORDERED: Promethazine DM 6.25 mg-15 mg/5 ml Syrup PO SCH (11:45)
[2017-10-08 12:59] LABS: HEMATOCRIT 38.4 % (36.0-48.0); MEAN CELL VOLUME 83.1 fl (80.0-105.0); MEAN CORPUSCULAR HEMOGLOBIN 27.7 pg (25.0-35.0); MEAN CORPUSCULAR HGB CONC 33.3 g/dl (31.0-37.0); MEAN PLATELET VOLUME 9.9 fl (7.0-11.0); RED CELL DISTRIBUTION WIDTH 13.2 % (11.5-14.5); WHITE BLOOD COUNT 20.1 10^3/ul (4.5-11.0)
[2017-10-08 13:11] LABS: ALB/GLOB RATIO 1.2 (1.1-1.8); ALKALINE PHOSPHATASE 64 U/L (38-126); ALT/SGPT 27 U/L (7-56); AST/SGOT 23 U/L (14-36); BILIRUBIN,TOTAL 0.3 mg/dL (0.2-1.3); BLOOD UREA NITROGEN 10 mg/dL (7-21); CARBON DIOXIDE 22 mmol/L (21-33); CHLORIDE 104 mmol/L (98-107); GFR AFRICAN-AMERICAN > 60; GLUCOSE,RANDOM 136 mg/dL (70-110); POTASSIUM 4.1 mmol/L (3.6-5.0); SODIUM 139 mmol/L (132-148); TOTAL PROTEIN 7.7 g/dL (5.8-8.3)
--- NOTE | 2017-10-08 17:57 | PN ---
SUBJECTIVE: I saw her in bed. She is coughing up a storm, still wheezing, audible. I changed her to an inpatient because I will not be able to discharge her today, also discussed with Pulmonary that he will not be able to tolerate the Solu-Medrol because she is still wheezing and tight and she feels the same way, headache, now coughing, and shortness of breath. OBJECTIVE: VITAL SIGNS: Temperature 97.7, pulse 95, blood pressure 129/78, respiratory rate 20, O2 saturation 97% on room air. HEENT: Head is atraumatic, normocephalic. Throat is moist. NECK: Supple. HEART: Regular rate. LUNGS: Decreased breath sounds, wheezes bilaterally, coughing, and congestion, not coughing it up. ABDOMEN: Soft, nontender. Positive bowel sounds. EXTREMITIES: No edema. MEDICATIONS: She is on Cozaar, DuoNeb, Flonase, Phenergan DM, Pulmicort, Singulair. Solu-Medrol will be maintained at 40 IV q. 8, Tylenol, vitamin D, and Zithromax IV. LABORATORY DATA: White count 10.4, hemoglobin 11.9, platelet 292. Sodium 139, potassium 3.9, BUN 10, creatinine 0.8, GFR is greater than 60, sugar is 109, AST is 25, ALT is 26, alkaline phosphatase is 56. There was lab ordered. ASSESSMENT AND PLAN: I will put her on Tylenol and Phenergan DM, make sure she has got oxygen, have her sit out of bed to chair, and hopefully she will improve. She was here for chronic obstructive sleep apnea, pneumonia, hypertension, and asthma. Kraig Tolliver DO M[facility]
[2017-10-09] MEDS: Albuterol-Ipratrop 3 mg / 0.5 (3 ml) UD IH SCH ×4 (02:30→20:20)
[2017-10-09] MEDS: MethylPREDNISolone 40 mg Vial IVP SCH ×3 (05:57→23:00)
[2017-10-09] MEDS: Promethazine DM 6.25 mg-15 mg/5 ml Syrup PO SCH ×4 (05:57→23:00)
[2017-10-09] MEDS: Budesonide 0.5 mg/2 ml Inhal Susp UD IH SCH ×2 (08:03→20:21)
[2017-10-09 08:13] LABS: HEMATOCRIT 37.8 % (36.0-48.0); MEAN CELL VOLUME 83.3 fl (80.0-105.0); MEAN CORPUSCULAR HEMOGLOBIN 27.1 pg (25.0-35.0); MEAN CORPUSCULAR HGB CONC 32.5 g/dl (31.0-37.0); MEAN PLATELET VOLUME 9.8 fl (7.0-11.0); RED CELL DISTRIBUTION WIDTH 13.4 % (11.5-14.5); WHITE BLOOD COUNT 20.8 10^3/ul (4.5-11.0)
[2017-10-09 08:32] LABS: ALB/GLOB RATIO 1.2 (1.1-1.8); ALKALINE PHOSPHATASE 68 U/L (38-126); ALT/SGPT 28 U/L (7-56); AST/SGOT 23 U/L (14-36); BILIRUBIN,TOTAL 0.3 mg/dL (0.2-1.3); BLOOD UREA NITROGEN 10 mg/dL (7-21); CALCIUM 9.7 mg/dL (8.4-10.5); CARBON DIOXIDE 25 mmol/L (21-33); CHLORIDE 101 mmol/L (98-107); GFR AFRICAN-AMERICAN > 60; GLUCOSE,RANDOM 119 mg/dL (70-110); POTASSIUM 4.2 mmol/L (3.6-5.0); SODIUM 139 mmol/L (132-148); TOTAL PROTEIN 7.4 g/dL (5.8-8.3)
--- NOTE | 2017-10-09 08:55 | PN ---
DATE: 10/09/2017 PULMONARY PROGRESS NOTE SUBJECTIVE: The patient was seen and examined at the bedside. She is currently receiving an inhalation treatment with DuoNeb with added budesonide. She complains of constant cough and some chest pain in the ribs due to cough. PHYSICAL EXAMINATION: VITAL SIGNS: Temperature is 98, pulse is 90, blood pressure 129/78. HEENT: Examination of head, normocephalic and atraumatic. NECK: Supple with no jugular vein distentions. CHEST: A few scattered rhonchi. There is actually no wheezing. Airway obstruction improved. CARDIOVASCULAR: S1, S2. No S3. GASTROINTESTINAL: Soft, nontender. No organomegaly. EXTREMITIES: No pedal edema. SKIN: Clear with no cyanosis or skin rashes. NEUROLOGIC: No focal deficits. LABORATORY DATA: Today's laboratory data, her blood chemistries are normal except for slightly elevated glucose at 136. Her WBC is still elevated at 20.8. The rest of her CBC is normal. ASSESSMENT AND PLAN: The patient was put on Phenergan syrup by her attending. She is still coughing a lot, but her bronchospasm is resolving. Clinically, she is making good progress. Continue current antibiotics, steroids and nebulizer treatments. Wiley Aleman MD
[2017-10-09] MEDS: Fluticasone Nasal 50 mcg/Spray NS SCH (10:01)
--- NOTE | 2017-10-09 18:07 | PN ---
DATE: SUBJECTIVE: I spoke to Rani this morning. She is doing little bit better than yesterday. She is coughing, but breathing up stuff that is phlegm, less short of breath, she is having headache though, part of migraine. I will put her on some tramadol to help that. She is eating okay. She gets out of bed to chair. She is walking okay. She is on Cozaar, DuoNeb, Flonase, Phenergan, Pulmicort, and Singulair. I decreased Solu-Medrol from 40 IV q.8 hours to 30 IV q.8 hours, Tylenol, Ultram now, vitamin D, and Zithromax. PHYSICAL EXAMINATION: VITAL SIGNS: Temperature 98.3, 83 pulse, 131/84 blood pressure, 18 respiratory rate, and 96% O2 sat on room air. HEENT: Head is atraumatic, normocephalic. Throat is moist. NECK: Supple. HEART: Regular rate. LUNGS: Decreased breath sounds, but clear. Less congestion, although there are still wheezes and rhonchi, but they are not as bad and it does not sound as thick. ABDOMEN: Soft and nontender. Positive bowel sounds. EXTREMITIES: No edema. LABORATORY DATA: She has 20.8 white count from the steroids, 12.3 hemoglobin, and 37.8 hematocrit with 382 platelets. Sodium 139, potassium 4.2, BUN 10, creatinine 0.6, GFR is greater than 60, sugar is 119, calcium is 9.7, total bilirubin is 0.3, AST is 23, ALT is 28, alkaline phosphatase is 68, total protein is 7.4, and albumin is 4. PLAN: She is being seen by Pulmonary. We will continue aggressive treatment and care for her COPD, pneumonia, hypertension, and asthma. We will check her labs tomorrow and see how she does with lower dose of Solu-Medrol. Kraig Tolliver DO
[2017-10-10] MEDS: Albuterol-Ipratrop 3 mg / 0.5 (3 ml) UD IH SCH ×4 (01:07→19:46)
[2017-10-10] MEDS: MethylPREDNISolone 40 mg Vial IVP SCH ×3 (06:08→22:28)
[2017-10-10] MEDS: Promethazine DM 6.25 mg-15 mg/5 ml Syrup PO SCH ×4 (06:08→23:35)
[2017-10-10 06:30] LABS: HEMATOCRIT 39.3 % (36.0-48.0); MEAN CELL VOLUME 83.6 fl (80.0-105.0); MEAN CORPUSCULAR HGB CONC 32.3 g/dl (31.0-37.0); MEAN PLATELET VOLUME 9.8 fl (7.0-11.0); RED CELL DISTRIBUTION WIDTH 13.2 % (11.5-14.5); WHITE BLOOD COUNT 17.7 10^3/ul (4.5-11.0)
[2017-10-10 07:07] LABS: ALB/GLOB RATIO 1.2 (1.1-1.8); ALKALINE PHOSPHATASE 70 U/L (38-126); ALT/SGPT 28 U/L (7-56); AST/SGOT 29 U/L (14-36); BILIRUBIN,TOTAL 0.3 mg/dL (0.2-1.3); BLOOD UREA NITROGEN 14 mg/dL (7-21); CALCIUM 9.8 mg/dL (8.4-10.5); CARBON DIOXIDE 26 mmol/L (21-33); CHLORIDE 100 mmol/L (98-107); GFR AFRICAN-AMERICAN > 60; GLUCOSE,RANDOM 125 mg/dL (70-110); POTASSIUM 4.2 mmol/L (3.6-5.0); SODIUM 138 mmol/L (132-148); TOTAL PROTEIN 7.4 g/dL (5.8-8.3)
--- NOTE | 2017-10-10 07:48 | PN ---
DATE: 10/10/2017 PULMONARY PROGRESS NOTE SUBJECTIVE: The patient appears comfortable this morning. She is not short of breath at rest. PHYSICAL EXAMINATION: VITAL SIGNS: (Last noted in the computer): Temperature is 98.2, pulse is 91, respirations are 19, and blood pressure is 130/74. Oxygen saturation on nasal cannula - 95%. HEENT: Normocephalic and atraumatic. NECK: No JVD. CARDIOVASCULAR: Positive S1 and S2. No S3 gallop. LUNGS: Improved breath sounds at the bases. Much less rhonchi. No wheezing this morning. EXTREMITIES: No clubbing, cyanosis or edema. Calves are nontender to palpation. GASTROINTESTINAL: Abdomen is soft, nontender and nondistended. Bowel sounds are positive. SKIN: No acute rash. NEUROLOGIC: Exam is limited at the present time. IMPRESSION 1. Acute bronchitis. 2. Asthma. 3. Acute sinusitis. 4. Hypertension. PLAN: The patient appears comfortable this morning. She is not short of breath at rest. She is coughing less. She does state to feeling much better overall. I did discuss the case with the night nurse at length. The night nurse states that he did not observe any significant coughing by the patient-- during his last shift. On physical exam, the patient's bronchospasm is significantly less. In addition, there is no significant alveolar-arterial gradient. I will continue the current nebulizer treatments and decrease the intravenous steroids this morning. The patient remains on antibiotic therapy. There are no temperatures noted. Clinical status of the patient is significantly improved. I will discuss the above with Dr. Tolliver in the next few moments. Calderon Ray MD [facility]OR[facility]
[2017-10-10] MEDS: Budesonide 0.5 mg/2 ml Inhal Susp UD IH SCH ×2 (08:03→19:46)
--- NOTE | 2017-10-10 09:15 | PN ---
DATE: SUBJECTIVE: I saw Rani this morning, when I walked into the room, she was quite calm. I spoke to the nurse, she was calm all night long and no cough. When I came in this morning and she was persistently coughing and coughing and coughing, I am not sure why when I walked into the room, the coughing started, but she was not coughing all night and when I walked in she was not coughing. She is short of breath at times she tells me. PHYSICAL EXAMINATION VITAL SIGNS: 98.2 temperature, 91 pulse, 130/74 blood pressure, 19 respiratory rate, and 96% O2 saturation and 97% on room air. HEENT: Head is atraumatic and normocephalic. Throat is moist. NECK: Supple. HEART: Regular rate and rhythm. LUNGS: Decreased breath sounds, but much clear. No wheezes or rhonchi at this time and is much improved. ABDOMEN: Soft. EXTREMITIES: No edema. MEDICATIONS: She is currently Cozaar, DuoNeb, Flonase, Phenergan, Pulmicort, Singulair, Solu-Medrol now down to 30 every q.12 hours, Tylenol, Ultram, vitamin D, and Zithromax. LABORATORY DATA: She has 17.7 white count, 12.7 hemoglobin, and 39.3 hematocrit with 403 platelets. She has 138 sodium, potassium of 4.2, BUN of 14, and creatinine of 0.7. GFR is greater than 60, sugar is 125, calcium is 9.8, total bilirubin is 0.2, AST is 29, ALT is 28, alkaline phosphatase is 70, total protein is 7.4, and albumin is 3.9. ASSESSMENT AND PLAN: She is definitely improving. I discussed this morning with the dairy farm supervisor, Dr. Ray. We will decrease the Solu-Medrol and watch her one more night and probably discharge her tomorrow morning on prednisone. She is definitely improving, but improving slowly. She is here for chronic obstructive pulmonary disease, pneumonia, hypertension, and asthma. Kraig Tolliver DO
[2017-10-10] MEDS: Fluticasone Nasal 50 mcg/Spray NS SCH (09:21)
[2017-10-10 17:36] VITALS: RESP 20
[2017-10-11] MEDS: Albuterol-Ipratrop 3 mg / 0.5 (3 ml) UD IH SCH ×4 (03:09→19:53)
[2017-10-11 06:45] LABS: HEMATOCRIT 39.6 % (36.0-48.0); MEAN CELL VOLUME 83.2 fl (80.0-105.0); MEAN CORPUSCULAR HEMOGLOBIN 26.9 pg (25.0-35.0); MEAN CORPUSCULAR HGB CONC 32.3 g/dl (31.0-37.0); MEAN PLATELET VOLUME 9.7 fl (7.0-11.0); RED CELL DISTRIBUTION WIDTH 13.2 % (11.5-14.5); WHITE BLOOD COUNT 16.4 10^3/ul (4.5-11.0)
[2017-10-11] MEDS: Promethazine DM 6.25 mg-15 mg/5 ml Syrup PO SCH ×3 (06:49→17:39)
[2017-10-11 07:01] LABS: ALB/GLOB RATIO 1.2 (1.1-1.8); ALKALINE PHOSPHATASE 66 U/L (38-126); ALT/SGPT 25 U/L (7-56); AST/SGOT 22 U/L (14-36); BILIRUBIN,TOTAL 0.3 mg/dL (0.2-1.3); BLOOD UREA NITROGEN 13 mg/dL (7-21); CALCIUM 9.4 mg/dL (8.4-10.5); CARBON DIOXIDE 25 mmol/L (21-33); CHLORIDE 100 mmol/L (98-107); GFR AFRICAN-AMERICAN > 60; GLUCOSE,RANDOM 114 mg/dL (70-110); SODIUM 138 mmol/L (132-148); TOTAL PROTEIN 7.1 g/dL (5.8-8.3)
[2017-10-11] MEDS: Budesonide 0.5 mg/2 ml Inhal Susp UD IH SCH ×2 (07:49→19:53)
[2017-10-11 08:11] VITALS: TEMP 98.2; O2SAT 97
--- NOTE | 2017-10-11 10:21 | PN ---
DATE: 10/11/2017 PULMONARY NOTE SUBJECTIVE: The patient appears comfortable this morning. She is not short of breath at rest. PHYSICAL EXAMINATION: VITAL SIGNS (last noted in the computer): Temperature 98.0, pulse 89, respirations 18-20, blood pressure 157/91. Oxygen saturation on nasal cannula is 98%. HEENT: Normocephalic, atraumatic. No JVD. CARDIOVASCULAR: Positive S1, S2. No S3 gallop. LUNGS: Minimal/less bilateral rhonchi. No wheezing. EXTREMITIES: No clubbing, cyanosis, or edema. Calves are nontender to palpation. GI: Abdomen is soft, nontender, and nondistended. Bowel sounds are positive. SKIN: No acute rash. NEUROLOGIC: Limited at the present time. IMPRESSION: 1. Acute bronchitis. 2. Asthma. 3. Acute sinusitis. 4. Hypertension. PLAN: The patient appears comfortable this morning. She is not short of breath at rest. She is coughing less, and feels much better. I did discuss the case with the night nurse at length. The night nurse did state that the patient had a few episodes of coughing, but had a very good night overall. On physical exam, the patient's bronchospasm continues to slowly resolve. In addition, there is no significant alveolar-arterial gradient. I will continue with the current nebulizer treatments and low-dose intravenous steroids (decreased yesterday) for now. The patient remains on antibiotic therapy. There are no temperatures noted. The leukocytosis is resolving. Again, the clinical status of this patient is significantly improved - compared to the initial presentation. The patient is advised to be out of bed and increase her activity as tolerated. I will discuss the above with Dr. Tolliver. Calderon Ray MD MTDD
[2017-10-11] MEDS: MethylPREDNISolone 40 mg Vial IVP SCH ×2 (10:48→21:32)
[2017-10-11] MEDS: Fluticasone Nasal 50 mcg/Spray NS SCH (10:49)
--- NOTE | 2017-10-11 13:14 | PN ---
DATE: SUBJECTIVE: I saw her this morning. She is still wheezing a little bit and some coughing. I discussed with Dr. Ray, he wants to keep her one more day now on Solu-Medrol, although I do think she is slowly improving. She is doing well in the room, less cough, but she is still coughing. She is on Cozaar, DuoNeb, Flonase, Phenergan DM, Pulmicort, Singulair, Solu-Medrol 30 IV q. 12 hours, Tylenol, Ultram, vitamin D, and Zithromax. PHYSICAL EXAMINATION: VITAL SIGNS: 98.2 temperature, 93 pulse, 140/86 blood pressure, 20 respiratory rate, 97% O2 sat on 2 L. HEENT: Head is atraumatic and normocephalic. HEART: Regular rate. LUNGS: Decreased breath sounds. Mild wheeze, changes with cough. ABDOMEN: Soft, nontender. Positive bowel sounds. EXTREMITIES: No edema. LABORATORY DATA: She has a 16.4 white count, 12.8 hemoglobin, 39.6 hematocrit with 398 platelets. 138 sodium, potassium 4, BUN is 30, creatinine 0.6, GFR is greater than 60, sugar is 114, calcium is 9.4, total bilirubin is 0.3, AST is 22, ALT is 25, alkaline phosphatase is 66. Total protein is 7.1, albumin is 3.9. PLAN: She is being seen by Pulmonology. They want to keep her one more day, IV Solu-Medrol, pulmonary toilet, but she is improving. We will change to prednisone tomorrow and discharge her tomorrow. We will check her labs. Encouraged pulmonary toilet. Kraig Tolliver DO
[2017-10-12] MEDS: Albuterol-Ipratrop 3 mg / 0.5 (3 ml) UD IH SCH ×2 (01:20→08:22)
[2017-10-12] MEDS: Promethazine DM 6.25 mg-15 mg/5 ml Syrup PO SCH ×2 (05:50)
[2017-10-12 06:31] LABS: HEMATOCRIT 41.3 % (36.0-48.0); MEAN CELL VOLUME 82.9 fl (80.0-105.0); MEAN CORPUSCULAR HEMOGLOBIN 27.3 pg (25.0-35.0); MEAN CORPUSCULAR HGB CONC 32.9 g/dl (31.0-37.0); MEAN PLATELET VOLUME 9.4 fl (7.0-11.0); RED CELL DISTRIBUTION WIDTH 13.1 % (11.5-14.5)
[2017-10-12 06:56] LABS: ALB/GLOB RATIO 1.1 (1.1-1.8); ALKALINE PHOSPHATASE 69 U/L (38-126); ALT/SGPT 34 U/L (7-56); AST/SGOT 20 U/L (14-36); BILIRUBIN,TOTAL 0.5 mg/dL (0.2-1.3); BLOOD UREA NITROGEN 13 mg/dL (7-21); CALCIUM 9.8 mg/dL (8.4-10.5); CARBON DIOXIDE 29 mmol/L (21-33); CHLORIDE 97 mmol/L (98-107); GFR AFRICAN-AMERICAN > 60; GLUCOSE,RANDOM 119 mg/dL (70-110); POTASSIUM 4.2 mmol/L (3.6-5.0); SODIUM 136 mmol/L (132-148); TOTAL PROTEIN 7.5 g/dL (5.8-8.3)
[2017-10-12] MEDS: Budesonide 0.5 mg/2 ml Inhal Susp UD IH SCH (08:22)
[2017-10-12 09:04] VITALS: BP 166/89; PULSE 92
[2017-10-12] MEDS: Fluticasone Nasal 50 mcg/Spray NS SCH (09:04)
--- NOTE | 2017-10-12 09:39 | PN ---
DATE: PULMONARY PROGRESS NOTE SUBJECTIVE: The patient appears very comfortable this morning. She is not short of breath at rest. OBJECTIVE: VITAL SIGNS: Last temperature recorded is 98.2, pulse this morning is approximately 80, respirations are 18, last blood pressure recorded was 143/99. oxygen saturation on nasal cannula is 97%. HEENT: Normocephalic, atraumatic. NECK: No JVD. CARDIOVASCULAR: Positive S1 and S2. No S3 gallop. LUNGS: Clear bilaterally this morning. EXTREMITIES: No clubbing, cyanosis or edema. Calves are nontender to palpation. GASTROINTESTINAL: Abdomen is soft, nontender, and nondistended. Bowel sounds are positive. SKIN: No acute rash. NEUROLOGIC: Exam limited at the present time. IMPRESSION: 1. Acute bronchitis. 2. Asthma. 3. Acute sinusitis. 4. Hypertension. PLAN: The patient appears very comfortable this morning. She is not short of breath at rest. She is coughing much less. She does state to feeling much, much better overall. On physical exam, her lungs are now clear. In addition, there is no significant alveolar-arterial gradient. I will continue the current nebulizer treatments and change to oral steroids this morning. The patient also remains on antibiotic therapy. There are no temperatures noted. Clinical status of the patient is significantly improved overall. I will discuss the above with Dr. Tolliver in the next few moments. Calderon Ray MD MTDD
--- NOTE | 2017-10-13 03:33 | DS ---
HISTORY OF PRESENT ILLNESS: I had a long discussion with Rani. She is doing much better. No cough. Her lungs are completely clear. I discussed also with the personal banking advisor, Dr. Ray. She was given prednisone 40 mg for three days, 30 mg for three days, 20 mg for three days, and 10 mg for three days and stop. MEDICATIONS: She has been on Cozaar, DuoNeb, Flonase, Phenergan DM, Pulmicort, Singulair, Ultram, vitamin D, and Zithromax for three more days. PHYSICAL EXAMINATION: VITAL SIGNS: 98.2 temperature, 95 pulse, 143/99 and 140/86 blood pressure, 20 respiratory rate, and 97% O2 sat on room air. For her blood pressure that is the highest it has been that she has been in the hospital. I am going to put her on some Norvasc 2.5 mg, I will give her one now, I will get the pressure down. HEENT: Head is atraumatic and normocephalic. HEART: Regular rate. LUNGS: Clear to auscultation and clear. ABDOMEN: Soft. EXTREMITIES: No edema. LABORATORY DATA: She has a 19 white count, 30.6 hemoglobin, and 407 platelets. Sodium 136, potassium is 4.2, BUN 13, creatinine 0.6. GFR is greater than 60. Sugar is 119, calcium is 9.8, and total bilirubin is 0.5. The liver enzymes are normal. ASSESSMENT AND PLAN: She was here for chronic obstructive pulmonary disease, pneumonia, hypertension, and asthma. The pharmacy called me. I have all the medicines with the pharmacy. Discussed with the personal banking advisor. I will see her in the office next week and I am going to add some amlodipine a low-dose to get the blood pressure down. Kraig Tolliver DO
== END 2017-10-12 10:41 | disposition home or self-care (01) | DRG 541 ==
LOC: ED 22:40 → ERH 10-07 02:09 → 3RNO 10-07 08:23 → OBSVTOIN 10-08 11:17
PROVIDERS: ADMIT Family Medicine; ATTEND Family Medicine
DX: J44.0 Chronic obstructive pulmonary disease with (acute) lower respiratory infection (principal); J18.9 Pneumonia, unspecified organism; J45.901 Unspecified asthma with (acute) exacerbation; J20.9 Acute bronchitis, unspecified; G47.33 Obstructive sleep apnea (adult) (pediatric); I10 Essential (primary) hypertension; J00 Acute nasopharyngitis [common cold]; J32.9 Chronic sinusitis, unspecified; G43.909 Migraine, unspecified, not intractable, without status migrainosus; F17.200 Nicotine dependence, unspecified, uncomplicated; Z82.49 Family history of ischemic heart disease and other diseases of the circulatory system; Z83.3 Family history of diabetes mellitus; K59.00 Constipation, unspecified; N80.9 Endometriosis, unspecified; Z87.892 Personal history of anaphylaxis; Z91.041 Radiographic dye allergy status; Z91.013 Allergy to seafood; Z91.048 Other nonmedicinal substance allergy status; R40.2412 Glasgow coma scale score 13-15, at arrival to emergency department

== ENCOUNTER 2018-05-03 11:25 | Inpatient (IN) | payer MEDICAID, OTHER ==
--- NOTE | 2018-05-03 11:34 | ED PDOC ---
Arrival/HPI - General Time Seen by Provider: 05/03/18 11:28 Historian: Patient, EMS - History of Present Illness Narrative History of Present Illness (Text): 05/03/18 11:31 32 y/o female, pmh including asthma/htn, nkda, biba c/o asthma exacerbation for the past 2 days. Pt. stated that she has been coughing for the past 2 days with runny nose, associated with wheezing, tried albuterol at home with limited relief and called the ambulance, received 125mg solud medrol and receiving magnesium 2gm as well, receive 2 doses of plain albuterol, no chest pain or palpitation, no night sweat, no other medical or psychological complaints. Past Medical History - Provider Review Nursing Documentation Reviewed: Yes - Past History Past History: Non-Contributing - Infectious Disease Hx of Infectious Diseases: None - Tetanus Immunization Tetanus Immunization: Unknown - Cardiac Hx Cardiac Disorders: No Hx Angina: No Hx Cardiac Arrhythmia: No Hx Circulatory Problems: No Hx Congestive Heart Failure: No Hx Heart Murmur: No Hx Heart Transplant: No Hx Hypertension: No Hx Internal Defibrillator: No Hx Mitral Valve Prolapse: No Hx Pacemaker: No Hx Peripheral Edema: No Hx Peripheral Vascular Disease: No - Pulmonary Hx Respiratory Disorders: Yes Hx Asthma: Yes Hx Bronchitis: Yes Hx Chronic Obstructive Pulmonary Disease (COPD): No Hx Emphysema: No Hx Pneumonia: No Hx Respiratory Aspiration: No Hx Respiratory Tract Infection: Yes Hx Sleep Apnea: No Hx Tuberculosis: No Other/Comment: has home nebulizer machine - Neurological Hx Neurological Disorder: No Hx Alzheimer's Disease: No HX Cerebrovascular Accident: No Hx Dementia: No Hx Dizziness: No Hx Meningitis: No Hx Migraine: No Hx Parkinson's Disease: No Hx Seizures: No Hx Transient Ischemic Attacks (TIA): No - HEENT Hx HEENT Disorder: Yes (eyeglasses) Hx Blind: No Hx Cataracts: No Hx Epistaxis: No Hx Glaucoma: No Hx Macular Degeneration: No - Renal Hx Renal Disorder: No Hx Dialysis: No Hx Kidney Stones: No Hx Neurogenic Bladder: No Hx Pyelonephritis: No Hx Renal Cancer: No Hx Renal Failure: No - Endocrine/Metabolic Hx Endocrine Disorders: No Hx Adrenal Cancer: No Hx Diabetes Insipidus: No Hx Diabetes Mellitus Type 1: No Hx Diabetes Mellitus Type 2: No Hx Hyperthyroidism: Yes Hx Hypothyroidism: No Hx Systemic Lupus Erythematosus: No - Hematological/Oncological Hx Blood Disorders: No Hx AIDS: No Hx Anemia: No Hx Cancer: No Hx Chemotherapy: No Hx Cirrhosis: No Hx Hemophilia: No Hx Hepatitis A: No Hx Hepatitis B: No Hx Hepatitis C: No Hx Metastasis: No Hx Shingles: No Hx Sickle Cell Disease: No Hx Unexplained Bleeding: No - Integumentary Hx Dermatological Disorder: No Hx Basal Cell Carcinoma: No Hx Eczema: No Hx Melanoma: No Hx Psoriasis: No Hx Squamous Cell Carcinoma: No - Musculoskeletal/Rheumatological Hx Musculoskeletal Disorders: No Hx Arthritis: Yes (rheumatoid, back knees hands) Hx Back Pain: No Hx Degenerative Joint Disease: No Hx Falls: No Hx Fractures: No Hx Gout: No Hx Herniated Disk: No Hx Myasthenia Gravis: No Hx Osteoarthritis: No Hx Osteomyelitis: No Hx Osteoporosis: No Hx Rhabdomyolysis: No Hx Spinal Stenosis: No Hx Unsteady Gait: No Other/Comment: b/l carpal tunnel no sx had cortisone shots, b/l ankle pain worse with touch - Gastrointestinal Hx Gastrointestinal Disorders: Yes (obese, chronic constipation) Hx Colostomy: No Hx Crohn's Disease: No Hx Diverticulitis: No Hx Gall Bladder Disease: No Hx Gastroesophageal Reflux: Yes Hx Gastrointestinal Ulcer: No Hx Ileostomy: No Hx Liver Failure: No Hx Pancreatitis: No HX Swallowing Problems: No - Genitourinary/Gynecological Hx Genitourinary Disorders: No Hx Hematuria: No Hx Incontinence: No Hx Prostate Problems: No Hx Sexually Transmitted Diseases: No Hx Urinary Tract Infection: (pt denies) - Psychiatric Hx Anxiety: Yes Hx Depression: Yes Hx Substance Use: No - Surgical History Hx Musculoskeletal Surgery: No Hx Orthopedic Surgery: Yes Other/Comment: tubal 2012, c section, d&c 2011, sx for ovarian cyst x3 and fibroid x1, 2 sx's for r shoulder rotatator cuff - Anesthesia Hx Anesthesia: Yes Hx Anesthesia Reactions: No Hx Malignant Hyperthermia: No - Suicidal Assessment Feels Threatened In Home Enviroment: No Family/Social History - Physician Review Nursing Documentation Reviewed: Yes Family/Social History: Unknown Family HX Smoking Status: Former Smoker Hx Alcohol Use: Yes (occasional) Hx Substance Use: No Hx Substance Use Treatment: No Allergies/Home Meds Allergies/Adverse Reactions: Allergies shellfish derived Allergy (Verified 05/03/18 11:37) ANAPHYLAXIS red 40 Allergy (Uncoded 05/03/18 11:37) ANAPHYLAXIS iv contrast Adverse Reaction (Uncoded 05/03/18 11:37) SHORTNESS OF BREATH Home Medications: Home Meds Medication Instructions Recorded Confirmed Albuterol/Ipratropium [Duoneb 3 2 ea IH BID 05/03/18 05/03/18 mg/0.5 mg (3 ml) UD] Review of Systems - Review of Systems Constitutional: absent: Fatigue, Fevers Eyes: absent: Vision Changes ENT: Rhinorrhea. absent: Hearing Changes Respiratory: Cough, Sputum, Wheezing. absent: SOB Cardiovascular: absent: Chest Pain Gastrointestinal: absent: Abdominal Pain, Nausea, Vomiting Skin: absent: Rash, Pruritis Neurological: absent: Headache, Dizziness Psychiatric: absent: Anxiety, Depression, Suicidal Ideation Physical Exam Vital Signs Reviewed: Yes Vital Signs Temp Pulse Resp BP Pulse Ox 05/03/18 16:00 108 H 18 132/80 99 05/03/18 14:12 100 H 18 136/84 99 05/03/18 11:45 98.2 F 89 17 156/83 H 98 05/03/18 11:44 19 Temperature: Afebrile Blood Pressure: Normal Pulse: Regular Respiratory Rate: Normal Appearance: Positive for: Well-Appearing, Non-Toxic, Comfortable Pain Distress: None Mental Status: Positive for: Alert and Oriented X 3 - Systems Exam Head: Present: Atraumatic, Normocephalic Pupils: Present: PERRL Extroacular Muscles: Present: EOMI Conjunctiva: Present: Normal Mouth: Present: Moist Mucous Membranes Neck: Present: Normal Range of Motion Respiratory/Chest: Present: Clear to Auscultation, Good Air Exchange, Wheezes, Decreased Breath Sounds, Rales, Rhonchi, Tachypneic. No: Respiratory Distress, Accessory Muscle Use, Retracting, Tender to Palpation Cardiovascular: Present: Regular Rate and Rhythm, Normal S1, S2. No: Murmurs Abdomen: No: Tenderness, Distention, Peritoneal Signs, Rebound, Guarding Back: Present: Normal Inspection Upper Extremity: Present: Normal Inspection. No: Cyanosis, Edema Lower Extremity: Present: Normal Inspection. No: Edema Neurological: Present: GCS=15, CN II-XII Intact, Speech Normal, Motor Func Grossly Intact, Gait Normal, Memory Normal Skin: Present: Warm, Dry, Normal Color. No: Rashes Psychiatric: Present: Alert, Oriented x 3, Normal Insight, Normal Concentration Medical Decision Making ED Course and Treatment: 05/03/18 11:35 Differential: asthma exacerbation vs. Pneumonia vs. URI -Labs/ua -Chest xray -IVF/benadryl/duoneb prn -Observe and reassess 05/03/18 14:55 -Pt. is still tachycardia around 110, dimer and additional fluid ordered 05/03/18 16:48 -Urine hcg is negative. -Ddimer is within normal limit. -EKG: Sinus Tachycardia @ 127 BPM, no ST elevation or depression, no T wave inversion. -Chest xray show ER wet read: +bronchial thickening noted on the RLL region, no obvious consolidation/infiltrate noted, compared with previous cxr. -Labs show no acute findings except wbc 13 (afebrile, likely stress induced from asthma exacerbation), Mg 2.6 (normal bun/creatinine function) -Azithromycin ordered 05/03/18 16:51 -Pt. is still coughing with broncho spasm, pre peak flow is 270 and post treatment still less than 300, for her age and weight/size, suppose to be around 430. -Pt. still having shortness of breath when walking, dimer negative, Xopenex and codein ordered, will admit her for observation. -I received a call from Dr. Kraig Tolliver, stated that he knows this patient and would like to admit to his service with DR. Ray for routine consult, discussed with Dr. Winters and he would put in the admission order. - Lab Interpretations Lab Results: 05/03/18 11:30 05/03/18 11:30 Lab Results 05/03/18 15:00: D-Dimer, Quantitative 80 05/03/18 11:30: Sodium 144, Potassium 3.8, Chloride 107, Carbon Dioxide 25, Anion Gap 17, BUN 8, Creatinine 0.6 L, Est GFR ( Amer) > 60, Est GFR (Non -Af Amer) > 60, Random Glucose 108, Calcium 9.0, Magnesium 2.6 H, Total Bilirubin 0.3, AST 22, ALT 24, Alkaline Phosphatase 77, Total Protein 7.7, Albumin 4.2, Globulin 3.5, Albumin/Globulin Ratio 1.2 05/03/18 11:30: WBC 13.1 H, RBC 4.96, Hgb 13.3, Hct 39.7, MCV 80.0, MCH 26.8, MCHC 33.5, RDW 13.5, Plt Count 348, MPV 9.6, Gran % 57.2, Lymph % (Auto) 34.6, Miller % (Auto) 5.8, Eos % (Auto) 2.2, Baso % (Auto) 0.2, Gran # 7.48 H, Lymph # ( Auto) 4.5 H, Miller # (Auto) 0.8 H, Eos # (Auto) 0.3, Baso # (Auto) 0.02 - RAD Interpretation Radiology Orders: 05/03/18 11:37 CHEST PORTABLE [RAD] Stat HISTORY: cough and wheezing, r/o pneumonia COMPARISON: 12/12/2017 FINDINGS: LUNGS: No active pulmonary disease. PLEURA: No significant pleural effusion identified, no pneumothorax apparent. CARDIOVASCULAR: Normal. OSSEOUS STRUCTURES: No significant abnormalities. VISUALIZED UPPER ABDOMEN: Normal. OTHER FINDINGS: None. IMPRESSION: No active disease. No significant interval change compared to the prior examination(s). 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 - Medication Orders Current Medication Orders: Codeine Sulfate (Codeine) 30 mg PO STAT STA Stop: 05/03/18 16:47 Sodium Chloride (Sodium Chloride 0.9%) 1,000 mls @ 200 mls/hr IV .Q5H STA Stop: 05/03/18 18:30 Last Admin: 05/03/18 14:19 Dose: 200 mls/hr eMAR Start Stop Document 05/03/18 14:19 SF (Rec: 05/03/18 14:19 [id number]) Intravenous Solution Start Date 05/03/18 Start Time 14:19 End Date 05/03/18 Levalbuterol HCl (Xopenex) 1.25 mg IH STAT STA Stop: 05/03/18 16:47 Discontinued Medications Albuterol/Ipratropium (Duoneb 3 Mg/0.5 Mg (3 Ml) Ud) 3 ml IH STAT STA Stop: 05/03/18 11:38 Last Admin: 05/03/18 11:51 Dose: 3 ml Azithromycin (Zithromax) 500 mg PO STAT STA PRN Reason: Protocol Stop: 05/03/18 12:34 Last Admin: 05/03/18 14:22 Dose: 500 mg Benzonatate (Tessalon Perles) 200 mg PO STAT STA Stop: 05/03/18 13:32 Last Admin: 05/03/18 14:22 Dose: 200 mg Diphenhydramine HCl (Benadryl) 25 mg IVP STAT STA Stop: 05/03/18 11:38 Last Admin: 05/03/18 11:52 Dose: 25 mg IVP Administration Document 05/03/18 11:52 SF (Rec: 05/03/18 11:52 SF [id number]) Charges for Administration # of IVP Administrations 1 Sodium Chloride (Sodium Chloride 0.9%) 1,000 mls @ 999 mls/hr IV .Q1H1M STA Stop: 05/03/18 12:37 Last Admin: 05/03/18 11:50 Dose: 999 mls/hr eMAR Start Stop Document 05/03/18 11:50 SF (Rec: 05/03/18 11:50 SF [id number]) Intravenous Solution Start Date 05/03/18 Start Time 11:50 End Date 05/03/18 End time 12:51 Total Infusion Time 61 - PA / DIGITAL RECRUITER / Resident Statement / has reviewed & agrees with the documentation as recorded. Disposition/Present on Arrival - Present on Arrival Any Indicators Present on Arrival: No History of DVT/PE: No History of Uncontrolled Diabetes: No Urinary Catheter: No History of Decub. Ulcer: No History Surgical Site Infection Following: None - Disposition Have Diagnosis and Disposition been Completed?: Yes Diagnosis: Asthma exacerbation, Bronchospasm Disposition: HOSPITALIZED Disposition Time: 16:53 Patient Plan: Admission, Observation, Telemetry Patient Problems: Current Active Problems Problem Status Onset Asthma exacerbation Acute Bronchospasm Acute Condition: STABLE
[2018-05-03] MEDS ORDERED: DiphenhydrAMINE 50 mg/ml Inj IVP STA (11:37)
[2018-05-03] MEDS ORDERED: Albuterol-Ipratrop 3 mg / 0.5 (3 ml) UD IH STA (11:37)
[2018-05-03] MEDS ORDERED: Sodium Chloride 0.9% 1,000 ML IV STA ×2 (11:37→13:31)
[2018-05-03 11:41] VITALS: BMI 37.8
[2018-05-03 12:05] LABS: BLOOD UREA NITROGEN 8 mg/dL (7-21); GFR AFRICAN-AMERICAN > 60; GFR NON-AFRICAN AMERICAN > 60
[2018-05-03 12:06] LABS: ALB/GLOB RATIO 1.2 (1.1-1.8); ALBUMIN 4.2 g/dL (3.0-4.8); ALT/SGPT 24 U/L (7-56); AST/SGOT 22 U/L (14-36)
[2018-05-03 12:17] LABS: BASO # 0.02 K/mm3 (0.0-2.0); BASO % 0.2 % (0.0-3.0); EOS # 0.3 (0.0-0.7); EOS % 2.2 % (1.5-5.0); GRAN # 7.48 (1.4-6.5); GRAN % 57.2 % (50.0-68.0); HEMOGLOBIN 13.3 g/dL (12.0-16.0); LYMPH # 4.5 (1.2-3.4); LYMPH % 34.6 % (22.0-35.0); MEAN CORPUSCULAR HEMOGLOBIN 26.8 pg (25.0-35.0); MEAN CORPUSCULAR HGB CONC 33.5 g/dl (31.0-37.0); MEAN PLATELET VOLUME 9.6 fl (7.0-11.0); MONO # 0.8 (0.1-0.6); MONO % 5.8 % (1.0-6.0); RBC 4.96 10^6/uL (3.5-6.1); RED CELL DISTRIBUTION WIDTH 13.5 % (11.5-14.5); WHITE BLOOD COUNT 13.1 10^3/ul (4.5-11.0)
--- NOTE | 2018-05-03 13:00 | RAD ---
HISTORY: cough and wheezing, r/o pneumonia COMPARISON: 12/12/2017 FINDINGS: LUNGS: No active pulmonary disease. PLEURA: No significant pleural effusion identified, no pneumothorax apparent. CARDIOVASCULAR: Normal. OSSEOUS STRUCTURES: No significant abnormalities. VISUALIZED UPPER ABDOMEN: Normal. OTHER FINDINGS: None. IMPRESSION: No active disease. No significant interval change compared to the prior examination(s). Concordant results with the preliminary interpretation rendered by the emergency department physician procedure.
[2018-05-03] MEDS ORDERED: Levalbuterol 1.25 MG/3 ML Inhal Soln UD IH STA (16:46)
[2018-05-03] MEDS: Albuterol-Ipratrop 3 mg / 0.5 (3 ml) UD IH SCH ×2 (18:12→23:55)
[2018-05-03] MEDS: cefTRIAXone 1 gm 1 GM/100 ML BAG IVPB SCH (18:12)
[2018-05-03] MEDS: MethylPREDNISolone 40 mg Vial IVP SCH (18:12)
[2018-05-03] MEDS: Promethazine DM 6.25 mg-15 mg/5 ml Syrup PO PRN (21:39)
[2018-05-03] MEDS ORDERED: Pneumococcal 23-Valent Vaccine IM ONE (22:29)
[2018-05-04] MEDS: MethylPREDNISolone 40 mg Vial IVP SCH ×3 (02:07→21:13)
--- NOTE | 2018-05-04 02:11 | HP ---
HISTORY OF PRESENT ILLNESS: I known her very well from multiple admissions in the office. She is a 32-year-old female presents to the emergency room with a history of two days of coughing, congestion, wheezing, on albuterol at home, did not get well, got real bad, got real short of breath, called the ambulance, gave her 125 mg of Solu-Medrol and magnesium, had two doses of plain albuterol and came to the emergency room. PAST MEDICAL HISTORY: Asthma, hypertension. Bronchitis, has a nebulizer machine at home which did not help her. She wears glasses, has hyperthyroidism, arthritis in her knees and hands, bilateral carpal tunnel syndrome, had cortisone shots, bilateral ankle pain, she has chronic constipation, gastroesophageal reflux, anxiety and depression. PAST SURGICAL HISTORY: She had orthopedic surgery, tubal ligation, C-sections, ovarian cyst x3, fibroid x1. Two surgeries for right rotator cuff tears. FAMILY HISTORY: Unknown family history. SOCIAL HISTORY: She is a former smoker. Occasional alcohol. No substance abuse. ALLERGIES: SHE IS ALLERGIC TO SHELLFISH, RED DYE 40, IV CONTRAST. MEDICATIONS: She is on DuoNeb, Cozaar. REVIEW OF SYSTEMS: Not feeling well, very upset, rhinorrhea, cough, sputum, wheezing. She is short of breath. No chest pain. No abdominal pain. No nausea or vomiting at this time. No indigestion. No skin rashes or ulcers. No headache or dizziness. Not anxious, depressed, or suicidal. She has been here before. She is upset because of the birthday tomorrow. She wants to try and stay home. PHYSICAL EXAMINATION: VITAL SIGNS: She has a 98.2 temp, 108 pulse, 19 respiratory rate, 156/83 blood pressure, 98% O2 sat on oxygen. GENERAL: She is alert. I am seeing her now. She is chronically coughing, it has been 7 minutes of straight coughing, cannot talk to me or tell me anything, audibly wheezing. We are giving her DuoNeb treatment right now as we speak in the ER. She is very uncomfortable. She is going to get oxygen. She is alert and oriented x3. There is some respiratory distress at this time. HEENT: Head is atraumatic, normocephalic. Extraocular muscles are intact. Pupils are equal and reactive to light. Throat is moist. NECK: Supple. HEART: Regular rate in the 90s, may get around 108. Normal S1 and S2. LUNGS: Decreased breath sounds, wheezes bilaterally. Rales and rhonchi. She is tachypneic. While I am seeing here, she is breathing at 28, although they got her at 19. She is breathing quite fair at this moment. ABDOMEN: Soft, nontender. Positive bowel sounds. No guarding, no rebound, no CVA tenderness. EXTREMITIES: No edema. NEUROLOGIC: GCS is 15. Cranial nerves II to XII grossly intact. Normal speech. Good memory. SKIN: Warm and dry. No apparent rashes or ulcers. PSYCHIATRIC: Alert and oriented x3. LYMPHATICS: Thyroid midline. No palpable appreciable lymphadenopathy. She has an asthmatic exacerbation, possibility of a pneumonia somewhere. LABORATORY DATA: She has multiple tests. She presents with a 13.1 white count, 13.3 hemoglobin, 39.7 hematocrit, with a 348 platelets. D-dimer was 80. Sodium 144, potassium 3.8, BUN 8, creatinine 0.6, GFR is greater than 60, sugar is 108, calcium is 9, magnesium 2.6, I gave her magnesium in the ambulance. Total bilirubin is 0.3, AST is 22, ALT is 24, alkaline phosphatase 77, total protein is 7.7, albumin is 4.2, globulin 3.5. IMPRESSION AND PLAN: She is going to have a consult with Pulmonary. She is going to be on IV Solu-Medrol 40 every 8 hours, oxygen. She will be on Rocephin, azithromycin, DuoNeb every 4 hours round the clock, promethazine, cough medicine, Cozaar, oxygen. I will check her labs tomorrow. This is a history and physical on R[facility] with acute asthma, possible pneumonia, and chronic bronchitis. Kraig Tolliver DO
[2018-05-04] MEDS: Albuterol-Ipratrop 3 mg / 0.5 (3 ml) UD IH SCH ×4 (03:50→19:54)
[2018-05-04] MEDS ORDERED: Albuterol-Ipratrop 3 mg / 0.5 (3 ml) UD ONE (03:59)
[2018-05-04] MEDS: Promethazine DM 6.25 mg-15 mg/5 ml Syrup PO PRN ×2 (05:55→18:18)
[2018-05-04 06:24] LABS: MEAN CELL VOLUME 79.8 fl (80.0-105.0); MEAN CORPUSCULAR HEMOGLOBIN 26.1 pg (25.0-35.0); MEAN CORPUSCULAR HGB CONC 32.7 g/dl (31.0-37.0); MEAN PLATELET VOLUME 9.8 fl (7.0-11.0); RBC 4.6 10^6/uL (3.5-6.1); RED CELL DISTRIBUTION WIDTH 13.8 % (11.5-14.5); WHITE BLOOD COUNT 11.5 10^3/ul (4.5-11.0)
[2018-05-04] MEDS ORDERED: Albuterol-Ipratrop 3 mg / 0.5 (3 ml) UD IH PRN (07:16)
[2018-05-04 07:17] LABS: ALB/GLOB RATIO 1.1 (1.1-1.8); ALBUMIN 3.7 g/dL (3.0-4.8); ALT/SGPT 24 U/L (7-56); AST/SGOT 26 U/L (14-36); BLOOD UREA NITROGEN 10 mg/dL (7-21); CALCIUM 9.1 mg/dL (8.4-10.5); GFR AFRICAN-AMERICAN > 60; GFR NON-AFRICAN AMERICAN > 60
[2018-05-04] MEDS: Budesonide 0.5 mg/2 ml Inhal Susp UD IH SCH ×2 (07:35→19:54)
--- NOTE | 2018-05-04 07:50 | CARD ---
APPROVED REPORT EKG Measurement Heart [id number] <Conclusion> Sinus tachycardia Cannot rule out Anterior infarct, age undetermined. Abnormal pattern may be due to misplaced V2, V3 leads Abnormal ECG
--- NOTE | 2018-05-04 08:06 | CON ---
DATE: 05/04/2018 PULMONARY CONSULTATION REASON FOR CONSULTATION: Asthma. REFERRING PHYSICIAN: Kraig Tolliver MD. HISTORY OF PRESENT ILLNESS: The patient is a 33-year-old female, with past medical history significant for asthma, recurrent bronchitis, chronic rhinitis, hypothyroidism, hypertension, who presents to [facility] with a 2-day history of worsening shortness of breath at rest, dyspnea on exertion, cough, and minimal sputum production. There is no history of chest pain, coughing up of blood, or chest pain - made worse with deep respirations. There is no history of temperatures, chills, or infectious exposure. There is no history of night sweats, weight loss, or appetite change prior to the above events. No history of leg or calf pains. No history of syncope or diaphoresis. No history of recent travel or trauma. REVIEW OF SYSTEMS: The patient does complain of a runny nose and nasal symptoms over the past few days. No history of nausea, vomiting, or diarrhea. No acute urinary symptoms. No new neurologic or musculoskeletal complaints. Rest of the review of systems negative. ALLERGIES: TO SHELLFISH AND IV CONTRAST. SOCIAL HISTORY: Negative for tobacco and negative for alcohol. FAMILY HISTORY: No inheritable diseases. HOME MEDICATIONS: Listed in the chart.: Sky White. PHYSICAL EXAMINATION: GENERAL: The patient is not short of breath at the present time. She is not using accessory muscles for breathing. VITAL SIGNS: Temperature is 98.2, pulse 96, respirations 19, blood pressure 140/78. Oxygen saturation on nasal cannula is 100%. HEENT: Normocephalic, atraumatic. No JVD. CARDIOVASCULAR: Positive S1, S2. No S3 gallop. LUNGS: Decreased breath sounds at the bases. Mild bilateral rhonchi. A few wheezes are also appreciated. EXTREMITIES: No clubbing, cyanosis, or edema. Calves are nontender to palpation. GASTROINTESTINAL: Abdomen is soft, nontender, and nondistended. Bowel sounds are positive. SKIN: No acute rash. NEUROLOGIC: Limited at the present time. PERTINENT LABORATORY DATA: Chest x-ray was done yesterday and reviewed. There is no acute disease noted. CBC: White count 11.5K, hemoglobin 12.0, hematocrit 36.7, platelets of 333,000. Complete metabolic profile: Glucose 134. Rest of the metabolic profile is within normal limits. IMPRESSION: 1. Recurrent bronchitis. 2. Recurrent rhinitis. 3. Acute bronchospasm. 4. Asthma. PLAN: The patient presents to [facility] with a 2-day history of worsening pulmonary symptoms. In addition, as above, the patient also complains of increasing nasal symptoms over the past few days. I did review the chest x-ray as above. There is no acute disease noted. On physical exam, there is mild bronchospasm noted. I will continue with the DuoNeb treatments and add inhaled Pulmicort. I will also try decreasing the intravenous steroids this morning. There is no significant alveolar-arterial gradient. Oxygen saturation on nasal cannula is 100%. The patient has also been started on antibiotic therapy. There is no history of temperatures. There is a very mild leukocytosis. Lastly,I will also start nasal steroids this morning. The patient does state to feeling much better this morning - compared to yesterday. She is clinically improved. Additional pulmonary intervention will be based on the clinical status of the patient. I will discuss the above with Dr. Tolliver. Thank you very much for this pulmonary consultation. Calderon Ray MD MTDFior
[2018-05-04] MEDS ORDERED: Promethazine 6.25 MG/5 ML CUP PO ONE (08:35)
[2018-05-04] MEDS ORDERED: Promethazine DM 6.25 mg-15 mg/5 ml Syrup PO ONE (08:36)
[2018-05-04] MEDS: Fluticasone Nasal 50 mcg/Spray NS SCH (09:30)
[2018-05-04] MEDS: cefTRIAXone 1 gm 1 GM/100 ML BAG IVPB SCH (09:31)
[2018-05-04] MEDS: Azithromycin 500MG/NS 250ml 500 MG/250 ML BAG IVPB SCH (09:34)
--- NOTE | 2018-05-04 11:52 | PN ---
DATE: 05/04/2018 SUBJECTIVE: I saw her resting comfortably this morning. She is coughing and some wheezes, but a little bit of congestion also, but may be better than yesterday. She is on Cozaar, DuoNeb, Flonase, Phenergan, Pulmicort, Rocephin, Solu-Medrol, Tessalon and Zithromax. PHYSICAL EXAMINATION: VITAL SIGNS: 97.4 temp, 83 pulse, 133/83 blood pressure, 18 respiratory rate, 98% O2 sat on 2 L. HEENT: Head is atraumatic, normocephalic. LUNGS: Decreased breath sounds with some congestion. Not wheezing today, though. ABDOMEN: Soft, obese. EXTREMITIES: No edema. MEDICATIONS: She is on same meds. LABORATORY DATA: The white count is down to 11.5, hemoglobin 12, hematocrit 36.7, platelets of 333. 139 sodium, potassium 4.4, BUN 10, creatinine 0.5, GFR is greater than 60, sugar is 134, calcium is 9.1, total bili is 0.3, AST is 26, ALT is 24, alk phos . Total protein 7.1. ASSESSMENT AND PLAN: She is being seen by Pulmonology. She is on the Solu-Medrol. She is having bronchospasms. I had to give her some Tessalon Perles to stop the cough. I will continue with aggressive treatment and care. She is still on observation and she is here for acute asthmatic bronchitis. Kraig Tolliver DO MTDD
[2018-05-05] MEDS: Promethazine DM 6.25 mg-15 mg/5 ml Syrup PO PRN ×2 (01:44→07:45)
[2018-05-05] MEDS: Albuterol-Ipratrop 3 mg / 0.5 (3 ml) UD IH SCH ×4 (01:49→19:24)
[2018-05-05] MEDS: Budesonide 0.5 mg/2 ml Inhal Susp UD IH SCH ×2 (08:07→19:25)
--- NOTE | 2018-05-05 08:37 | PN ---
DATE: 05/05/2018 PULMONARY NOTE SUBJECTIVE: The patient appears comfortable this morning. She is not short of breath at rest. OBJECTIVE: VITAL SIGNS: Last temperature recorded is 97.2, pulse 81, respirations 18, blood pressure 148/82. Oxygen saturation on nasal cannula is 98%-100%. HEENT: Normocephalic, atraumatic. No JVD. CARDIOVASCULAR: Positive S1, S2. No S3 gallop. LUNGS: Improved breath sounds at the bases. Less rhonchi. Less wheezing. EXTREMITIES: No clubbing, cyanosis or edema. Calves are nontender to palpation. GI: Abdomen is soft, nontender and nondistended. Bowel sounds are positive. SKIN: No acute rash. NEUROLOGIC: Exam limited at the present time. IMPRESSION: 1. Recurrent bronchitis. 2. Recurrent rhinitis. 3. Acute bronchospasm. 4. Asthma. PLAN: The patient appears comfortable this morning. She is not short of breath at rest. She does state to feeling better overall. However, she still does have some paroxysms of coughing. I did discuss the case with the night nurse at length. The night nurse stated that the patient had a good night overall, but did have a paroxysm of coughing at approximately 02:00 a.m. On physical exam, the patient remains in mild/less bronchospasm. I will continue with the current nebulizer treatments and low-dose intravenous steroids for now. The patient is also on antibiotic therapy and nasal steroids. Clinical status of the patient is definitely improved - compared to the initial presentation. I will discuss the above with Dr. Tolliver. Calderon Ray MD MTDD
[2018-05-05] MEDS: cefTRIAXone 1 gm 1 GM/100 ML BAG IVPB SCH (10:06)
[2018-05-05] MEDS: MethylPREDNISolone 40 mg Vial IVP SCH ×2 (10:07→21:22)
[2018-05-05] MEDS: Azithromycin 500MG/NS 250ml 500 MG/250 ML BAG IVPB SCH (10:09)
--- NOTE | 2018-05-05 11:45 | PN ---
DATE: 05/05/2018 SUBJECTIVE: I saw her this morning, hoping to discharge her. She is a but she is actually not improved at all. Discussed this with the senior ui designer, Dr. Ray and we are not going to decrease the Medrol, keep on the same dosage. She is also on IV antibiotics, pulmonary toilet, cough medicines and she really has not broke yet from the lung. She is still very wheezing, coughing, congested and feels short of breath. OBJECTIVE: VITAL SIGNS: Temperature 98.1, 86 pulse, 154/89 blood pressure, 19 respiratory rate, 99% but on 2 liters nasal cannula. HEENT: Head is atraumatic, normocephalic. HEART: Regular rate. LUNGS: With wheezes, congestion changes with cough but still wheezing and rhonchi. ABDOMEN: Soft. EXTREMITIES: No edema. DATA: She has 11.5 white count, 12 hemoglobin, 333 platelets. Sodium 139, potassium 4.4, BUN 10, creatinine 0.5, GFR is greater than 60, sugar is 134, calcium is 9.1, AST is 26, ALT is 24, alkaline phosphatase 54, total protein 7.1. We will change it to an inpatient status. She will continue with treatment aggressively for her asthma, COPD type of picture of bronchitis and hopefully, she will break and we could discharge her when she improves. Discussed with the senior ui designer at length and she is now an inpatient. Kraig Tolliver DO MTDD
[2018-05-05] MEDS: Fluticasone Nasal 50 mcg/Spray NS SCH (14:29)
[2018-05-06] MEDS: Albuterol-Ipratrop 3 mg / 0.5 (3 ml) UD IH SCH ×4 (01:08→19:42)
[2018-05-06] MEDS: Promethazine DM 6.25 mg-15 mg/5 ml Syrup PO PRN ×2 (04:24→12:03)
[2018-05-06] MEDS: Budesonide 0.5 mg/2 ml Inhal Susp UD IH SCH ×2 (07:57→19:42)
[2018-05-06 08:48] LABS: HEMOGLOBIN 12.6 g/dL (12.0-16.0); MEAN CELL VOLUME 80.3 fl (80.0-105.0); MEAN CORPUSCULAR HEMOGLOBIN 26.4 pg (25.0-35.0); MEAN CORPUSCULAR HGB CONC 32.8 g/dl (31.0-37.0); MEAN PLATELET VOLUME 9.9 fl (7.0-11.0); RBC 4.78 10^6/uL (3.5-6.1); RED CELL DISTRIBUTION WIDTH 13.6 % (11.5-14.5); WHITE BLOOD COUNT 15.3 10^3/ul (4.5-11.0)
[2018-05-06 09:11] LABS: ALB/GLOB RATIO 1.2 (1.1-1.8); ALT/SGPT 52 U/L (7-56); AST/SGOT 38 U/L (14-36); BLOOD UREA NITROGEN 11 mg/dL (7-21); CALCIUM 9.4 mg/dL (8.4-10.5); GFR AFRICAN-AMERICAN > 60; GFR NON-AFRICAN AMERICAN > 60
[2018-05-06] MEDS: Fluticasone Nasal 50 mcg/Spray NS SCH (09:44)
[2018-05-06] MEDS: Azithromycin 500MG/NS 250ml 500 MG/250 ML BAG IVPB SCH (09:46)
[2018-05-06] MEDS ORDERED: Cefpodoxime (Vantin) 200 mg Tab PO SCH (10:00)
--- NOTE | 2018-05-06 11:12 | PN ---
DATE: 05/06/2018 PULMONARY PROGRESS NOTE SUBJECTIVE: The patient was seen and examined at the bedside. She is not complaining of shortness of breath and she is not wheezing at the present time. She is receiving DuoNeb inhalations and she is also on budesonide by inhalation and Solu-Medrol 40 mg intravenous every 12 hours as well as antibiotics. PHYSICAL EXAMINATION: VITAL SIGNS: Temperature 97, pulse 75, respirations 18, pulse oximetry is 96 on room air, blood pressure is 150/90. HEENT: Examination of head, ear, nose and throat is within normal limits. CARDIOVASCULAR: S1 and S2. No S3, regular. PULMONARY: No rhonchi. No wheezing. GI: Soft, nontender, no organomegaly. Obese. EXTREMITIES: No pedal edema. LABORATORY DATA: No new laboratory data this morning. ASSESSMENT: 1. Exacerbation of bronchial asthma, resolving. 2. Recurrent bronchitis. PLAN: The patient has improved significantly. She can be switched to oral steroids and tapered gradually. Antibiotics per attending. Current nebulizer treatments can be tapered as well. Wiley Aleman MD
[2018-05-06] MEDS ORDERED: cefTRIAXone 1 gm 1 GM/100 ML BAG IVPB SCH (12:00)
[2018-05-06] MEDS ORDERED: MethylPREDNISolone 40 mg Vial IVP ONE (12:30)
--- NOTE | 2018-05-06 13:29 | PN ---
DATE: 05/06/2018 SUBJECTIVE: She was improving this morning when the event manager had seen her. By the time I got to her, the wheezes and the coughing have started again. She was trying to be changed over to p.o. medications. I put her back on IV antibiotics, although she is on Medrol 16 twice a day. I put her back on Rocephin and the Zithromax IV. She is coughing and not feeling well. PHYSICAL EXAMINATION: VITAL SIGNS: She has a 97 temp, 90 pulse, 158/91 blood pressure, 18 respiratory rate, 96% O2 sat on 2 L. HEENT: Head is atraumatic, normocephalic. HEART: Regular rate. LUNGS: Decreased breath sounds. Occasional wheeze bilaterally, changes with cough, mild. More congestion than the day before. ABDOMEN: Soft. EXTREMITIES: No edema. LABORATORY DATA: She has a 15.3 white count, probably from the steroids; 12.6 hemoglobin; 38.4 hematocrit and 370 platelets. 140 sodium, potassium 4.2, BUN 11, creatinine 0.6, GFR is greater than 60, sugar is 104, calcium is 9.4, total bili is 0.2, AST is 38, ALT 52, alk phos 67, total protein 7.4. ASSESSMENT AND PLAN: I tried to discharge her today as per Pulmonary, but she decompensated when I saw her. I will try again tomorrow. Hopefully, I could discharge her tomorrow and change her to tablets. I am going to give her one extra dose of Solu-Medrol 20. Kraig Tolliver DO
[2018-05-06 16:26] VITALS: RESP 20
[2018-05-07] MEDS: Promethazine DM 6.25 mg-15 mg/5 ml Syrup PO PRN (00:17)
[2018-05-07] MEDS: Albuterol-Ipratrop 3 mg / 0.5 (3 ml) UD IH SCH ×2 (01:05→07:47)
[2018-05-07] MEDS: Budesonide 0.5 mg/2 ml Inhal Susp UD IH SCH (07:48)
[2018-05-07 09:47] VITALS: BP 149/91; PULSE 71; TEMP 98; O2SAT 100
--- NOTE | 2018-05-07 11:30 | PN ---
DATE: 05/07/2018 PULMONARY PROGRESS NOTE SUBJECTIVE: The patient was seen and examined at bedside. She states she feels much better. PHYSICAL EXAMINATION: VITAL SIGNS: Her temperature is 98.1, pulse 85, respirations 20 and pulse oximetry is 99% on room air. HEENT: Head: Normocephalic and atraumatic. NECK: Supple with no jugular vein distentions. CARDIOVASCULAR: S1, S2. No S3. Regular. PULMONARY: Slight end-expiratory wheezes and coughing during deep inspiration. ABDOMEN: Soft, obese. Bowel sounds present. EXTREMITIES: 1+ pedal edema. SKIN: No cyanosis. No skin rashes. NEUROLOGIC: No focal deficits. ASSESSMENT: 1. Exacerbation of bronchial asthma. 2. Recurrent bronchitis. 3. Obesity. PLAN: We have switched patient from intravenous steroids to oral steroids yesterday, this can be tapered over the next 10 to 14 days. She is doing much better. She is ready to be discharged. Wiley Aleman MD
--- NOTE | 2018-05-07 20:13 | DS ---
HISTORY OF PRESENT ILLNESS: I saw her resting comfortably in bed. She is breathing much better today than yesterday. No more wheezes. No coughing. She is in good spirits. She is ready to go home. She is on Cozaar, DuoNebs, Flonase, 16 mg of methylprednisolone twice a day for 3 days and 12 mg twice a day for 3 days and 8 mg twice a day for 3 days and 4 mg twice a day for 3 days and stop, promethazine, Pulmicort, Augmentin, Tessalon Perles as needed and azithromycin for 3 days. PHYSICAL EXAMINATION: VITAL SIGNS: She has a 98.1 temperature, 63 pulse, 142/74 blood pressure, 20 respiratory rate, 99% O2 sat on room air. HEENT: Head is atraumatic, normocephalic. HEART: Regular rate. LUNGS: Decreased breath sounds, but clear today. No wheezes. No rhonchi. No rales, actually it is quite clear today and very little cough, if any. ABDOMEN: Soft, obese, nontender. EXTREMITIES: No edema. LABORATORY DATA: 15.3 white count from the steroids, 12.6 hemoglobin, 38.4 hematocrit with 370 platelets. Sodium 140, potassium 4.2, BUN 11, creatinine 0.6, GFR is greater than 60, sugar is 104, calcium 9.4, total bili is 0.2, AST is 30, ALT is 52, alk phos 67, total protein 7.4. She was seen by Pulmonary. They agree with the discharge and hopefully, she will do very well. She will be in the office next week as she was here for acute asthmatic bronchitis. Kraig Tolliver DO
== END 2018-05-07 10:37 | disposition home or self-care (01) | DRG 96 ==
LOC: ED 11:25 → ERH 16:56 → 3RNO 19:06 → OBSVTOIN 05-05 08:22
PROVIDERS: ADMIT Family Medicine; ATTEND Family Medicine
PROC: 3E0F7GC Introduction of Other Therapeutic Substance into Respiratory Tract, Via Natural or Artificial Opening (ICD-10-PCS; principal; 2018-05-03)
DX: J45.901 Unspecified asthma with (acute) exacerbation (principal); E05.90 Thyrotoxicosis, unspecified without thyrotoxic crisis or storm; K21.9 Gastro-esophageal reflux disease without esophagitis; K59.09 Other constipation; G56.03 Carpal tunnel syndrome, bilateral upper limbs; F32.9 Major depressive disorder, single episode, unspecified; F41.9 Anxiety disorder, unspecified; I10 Essential (primary) hypertension; M17.0 Bilateral primary osteoarthritis of knee; E66.9 Obesity, unspecified; Z68.37 Body mass index [BMI] 37.0-37.9, adult; Z91.013 Allergy to seafood; Z87.891 Personal history of nicotine dependence

== ENCOUNTER 2018-08-31 11:30 | Emergency (ER) | payer MEDICAID ==
[2018-08-31 11:31] VITALS: BMI 37.8
[2018-08-31] MEDS ORDERED: Albuterol-Ipratrop 3 mg / 0.5 (3 ml) UD IH STA (12:01)
--- NOTE | 2018-08-31 12:02 | ED PDOC ---
Arrival/HPI - General Chief Complaint: Cough, Cold, Congestion Time Seen by Provider: 08/31/18 11:31 Historian: Patient - History of Present Illness Narrative History of Present Illness (Text): 08/31/18 11:58 33 year old female whose past medical history includes asthma, who presents to the emergency department complaining of worsening shortness of breath, coughing, and vomiting which started 6 days ago. patient reports that she called her PMD today complaining that her dyspnea has worsened, and was instructed to present to the emergency department. She has tried using her nebulizer and rescue inhalers with minimal alleviation to her shortness of breath. She admits to having sick contact with her children. Patient states that she has noticed wheezing and sore throat. She states that her coughs are productive with occasi onal white sputum, and at other times greenish/yellow sputum. Of note patient has occasionally noticed "specks" of blood in her sputum. She denies taking the flue vaccine this year. Patient denies fevers, chest pain, dyspnea on exertion, abdominal pain, nausea, vomiting, diarrhea, back pain, neck pain, headache, dizziness, or any other complaint. PMD: Time/Duration: < week Symptom Onset: Gradual Symptom Course: Worsening Context: Home Past Medical History - Provider Review Nursing Documentation Reviewed: Yes - Travel History Have you recently traveled outside [place] w/in the past 3 mons?: No - Past History Past History: Non-Contributing - Infectious Disease Hx of Infectious Diseases: None - Tetanus Immunization Tetanus Immunization: Unknown - Cardiac Hx Cardiac Disorders: Yes Hx Hypertension: Yes - Pulmonary Hx Respiratory Disorders: Yes Hx Asthma: Yes - Neurological Hx Neurological Disorder: No Hx Alzheimer's Disease: No HX Cerebrovascular Accident: No Hx Dementia: No Hx Dizziness: No Hx Meningitis: No Hx Migraine: Yes Hx Parkinson's Disease: No Hx Seizures: No Hx Transient Ischemic Attacks (TIA): No - HEENT Hx HEENT Disorder: Yes (eyeglasses) Hx Blind: No Hx Cataracts: No Hx Epistaxis: No Hx Glaucoma: No Hx Macular Degeneration: No - Renal Hx Renal Disorder: No Hx Dialysis: No Hx Kidney Stones: No Hx Neurogenic Bladder: No Hx Pyelonephritis: No Hx Renal Cancer: No Hx Renal Failure: No - Endocrine/Metabolic Hx Endocrine Disorders: No Hx Adrenal Cancer: No Hx Diabetes Insipidus: No Hx Diabetes Mellitus Type 1: No Hx Diabetes Mellitus Type 2: No Hx Hyperthyroidism: Yes Hx Hypothyroidism: No Hx Systemic Lupus Erythematosus: No - Hematological/Oncological Hx Blood Disorders: No Hx AIDS: No Hx Anemia: No Hx Cancer: No Hx Chemotherapy: No Hx Cirrhosis: No Hx Hemophilia: No Hx Hepatitis A: No Hx Hepatitis B: No Hx Hepatitis C: No Hx Metastasis: No Hx Shingles: No Hx Sickle Cell Disease: No Hx Unexplained Bleeding: No - Integumentary Hx Dermatological Disorder: No Hx Basal Cell Carcinoma: No Hx Eczema: No Hx Melanoma: No Hx Psoriasis: No Hx Squamous Cell Carcinoma: No - Musculoskeletal/Rheumatological Hx Musculoskeletal Disorders: No Hx Arthritis: Yes (rheumatoid, back knees hands) Hx Back Pain: No Hx Degenerative Joint Disease: No Hx Falls: No Hx Fractures: No Hx Gout: No Hx Herniated Disk: No Hx Myasthenia Gravis: No Hx Osteoarthritis: No Hx Osteomyelitis: No Hx Osteoporosis: No Hx Rhabdomyolysis: No Hx Spinal Stenosis: No Hx Unsteady Gait: No Other/Comment: b/l carpal tunnel no sx had cortisone shots, b/l ankle pain worse with touch recently started about 4 months ago - Gastrointestinal Hx Gastrointestinal Disorders: Yes (obese, chronic constipation) Hx Colostomy: No Hx Crohn's Disease: No Hx Diverticulitis: No Hx Gall Bladder Disease: No Hx Gastroesophageal Reflux: Yes Hx Gastrointestinal Ulcer: No Hx Ileostomy: No Hx Liver Failure: No Hx Pancreatitis: No HX Swallowing Problems: No - Genitourinary/Gynecological Hx Genitourinary Disorders: No Hx Hematuria: No Hx Incontinence: No Hx Prostate Problems: No Hx Sexually Transmitted Diseases: No Hx Urinary Tract Infection: (pt denies) - Psychiatric Hx Anxiety: Yes Hx Depression: Yes Hx Substance Use: No - Surgical History Hx Arthroscopy: Yes (RIGHT SHOULDER) Hx Section: Yes Hx Tubal Ligation: Yes Other/Comment: OVARIAN CYSTECTOMY - Anesthesia Hx Anesthesia: Yes Hx Anesthesia Reactions: Yes (NAUSEA) Hx Malignant Hyperthermia: No - Suicidal Assessment Feels Threatened In Home Enviroment: No Family/Social History - Physician Review Nursing Documentation Reviewed: Yes Family/Social History: No Known Family HX Smoking Status: Heavy Smoker > 10 Cigarettes Daily Hx Alcohol Use: Yes (occasional) Hx Substance Use: No Hx Substance Use Treatment: No Allergies/Home Meds Allergies/Adverse Reactions: Allergies shellfish derived Allergy (Verified 06/06/18 07:55) ANAPHYLAXIS red 40 Allergy (Uncoded 06/06/18 07:55) ANAPHYLAXIS iv contrast Adverse Reaction (Uncoded 06/06/18 07:55) SHORTNESS OF BREATH Review of Systems - Physician Review All systems were reviewed & negative as marked: Yes - Review of Systems Constitutional: absent: Fevers ENT: Sore Throat Respiratory: SOB, Cough, Sputum (occasional white and yellow/greenish sputum. Occasional specks of blood), Wheezing Cardiovascular: absent: Chest Pain, BENTLEY Gastrointestinal: absent: Abdominal Pain, Nausea, Vomiting, Appetite Changes Musculoskeletal: absent: Back Pain, Neck Pain Neurological: absent: Headache, Dizziness Physical Exam Vital Signs Reviewed: Yes Temperature: Afebrile Blood Pressure: Normal Pulse: Tachycardic Respiratory Rate: Normal Appearance: Positive for: Well-Appearing Mental Status: Positive for: Alert and Oriented X 3 - Systems Exam Head: Present: Atraumatic, Normocephalic Pupils: Present: PERRL Extroacular Muscles: Present: EOMI Conjunctiva: Present: Normal Mouth: Present: Moist Mucous Membranes Neck: Present: Normal Range of Motion Respiratory/Chest: Present: Clear to Auscultation, Good Air Exchange, Decreased Breath Sounds (diminished breath sounds), Tachypneic, Other (Speaks full and clear sentences with intermittent coughs.). No: Respiratory Distress, Accessory Muscle Use (intercostal muscle use) Cardiovascular: Present: Normal S1, S2, Tachycardic. No: Murmurs Abdomen: No: Tenderness, Distention, Peritoneal Signs Back: Present: Normal Inspection Upper Extremity: Present: Normal Inspection, Capillary Refill < 2s. No: Cyanosis, Edema Lower Extremity: Present: Normal Inspection. No: Edema Neurological: Present: GCS=15, CN II-XII Intact, Speech Normal Skin: Present: Warm, Dry, Normal Color. No: Rashes Psychiatric: Present: Alert, Oriented x 3, Normal Insight, Normal Concentration Medical Decision Making ED Course and Treatment: 08/31/18 11:58 Impression: 33 year old female who is complaining of dyspnea, coughing, and vomiting that started 6 days ago. Differential Diagnosis included but are not limited to: Bronchitis Viral pharyngitis Community acquired pneumonia Plan: -- Labs -- Blood work -- Duoneb -- Robitussin -- Solu-Medrol -- Urinalysis -- Chest X-ray -- Reassess and disposition Prior Visits: Notes and results from previous visits were reviewed. Progress Notes: 08/31/18 13:05 On reevaluation patient feels better and is in no acute distress. Discussed results with patient who expressed understanding, and patient had all her questions answered. Patient is stable for discharge and agrees with plan to be discharged with Z-pack, Medrol, and Albuterol prescription. Patient instructed to follow-up with PMD in 1-3 days, or present to the ED if symptoms worsens. 08/31/18 13:11 Discussed case with , who is aware of and is fine with following-up with patient in the outpatient setting. - Lab Interpretations I have reviewed the lab results: Yes - RAD Interpretation Narrative RAD Interpretations (Text): 08/31/18 12:48 Chest X-ray: Dictator : Eusebio Boyd MD IMPRESSION: No interval acute cardiopulmonary disease appreciated. 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 Interpreted by me. Interpreted by ED Physician: Yes Type: 12 lead EKG - Scribe Statement The provider has reviewed the documentation as recorded by the Scribe Manuel Panchal Provider Scribe Attestation: All medical record entries made by the Scribe were at my direction and personally dictated by me. I have reviewed the chart and agree that the record accurately reflects my personal performance of the history, physical exam, medical decision making, and the department course for this patient. I have also personally directed, reviewed, and agree with the discharge instructions and disposition. Disposition/Present on Arrival - Present on Arrival Any Indicators Present on Arrival: No History of DVT/PE: No History of Uncontrolled Diabetes: No Urinary Catheter: No History Surgical Site Infection Following: None - Disposition Have Diagnosis and Disposition been Completed?: Yes Diagnosis: Bronchitis, Asthma exacerbation Disposition: HOME/ ROUTINE Disposition Time: 13:15 Patient Plan: Discharge Condition: IMPROVED Discharge Instructions (ExitCare): Asthma, Adult (DC), Acute Bronchitis, Adult (DC) Additional Instructions: All medical record entries made by the Scribe were at my direction and personally dictated by me. I have reviewed the chart and agree that the record accurately reflects my personal performance of the history, physical exam, medical decision making, and the department course for this patient. I have also personally directed, reviewed, and agree with the discharge instructions and disposition. Prescriptions: RX: Albuterol HFA [Ventolin HFA 90 mcg/actuation (8 g)] 2 puff IH [id number] #60 puff Azithromycin [Z-Helio] 250 mg PO DAILY #6 tab Methylprednisolone [Medrol Dose Pack (21 tabs)] 4 mg PO DAILY #21 mg Referrals: Kraig Tolliver DO [Primary Care Provider] - Follow up with primary Forms: [facility] ([place]), WORK NOTE
[2018-08-31 12:04] VITALS: RESP 18; TEMP 98.4
[2018-08-31] MEDS ORDERED: guaiFENesin 200 mg/10 ml Syrup UD PO ONE (12:05)
--- NOTE | 2018-08-31 12:30 | RAD ---
Date of service: 08/31/2018 HISTORY: shortness of breath COMPARISON: Portable chest 05/03/2018. FINDINGS: LUNGS: No active pulmonary disease. PLEURA: No significant pleural effusion identified, no pneumothorax apparent. CARDIOVASCULAR: No aortic atherosclerotic calcification present. Normal cardiac size. No pulmonary vascular congestion. OSSEOUS STRUCTURES: No significant abnormalities. VISUALIZED UPPER ABDOMEN: Normal. OTHER FINDINGS: None. IMPRESSION: No interval acute cardiopulmonary disease appreciated.
[2018-08-31] MEDS ORDERED: Albuterol 0.083% Inhal Sol (2.5 mg/3 mL) UD INH STA (12:45)
[2018-08-31 12:48] LABS: ALB/GLOB RATIO 1.1 (1.1-1.8); ALBUMIN 3.8 g/dL (3.0-4.8); ALT/SGPT 26 U/L (7-56); AST/SGOT 29 U/L (14-36); BLOOD UREA NITROGEN 9 mg/dL (7-21); GFR NON-AFRICAN AMERICAN > 60; URINE BILIRUBIN NEGATIVE (NEGATIVE); URINE BLOOD NEGATIVE (NEGATIVE); URINE GLUCOSE (UA) NEGATIVE (NEGATIVE); URINE LEUKOCYTE ESTERASE NEGATIVE Leu/uL (NEGATIVE); URINE PROTEIN NEGATIVE mg/dL (<30 mg/dL); URINE UROBILINOGEN 0.2 E.U./dL (<1 E.U./dL)
[2018-08-31 12:49] LABS: BASO # 0.01 K/mm3 (0.0-2.0); BASO % 0.1 % (0.0-3.0); EOS # 0.4 (0.0-0.7); EOS % 4.8 % (1.5-5.0); GRAN # 4.32 (1.4-6.5); GRAN % 55.7 % (50.0-68.0); HEMOGLOBIN 12.9 g/dL (12.0-16.0); LYMPH # 2.5 (1.2-3.4); LYMPH % 32.3 % (22.0-35.0); MEAN CELL VOLUME 81.5 fl (80.0-105.0); MEAN CORPUSCULAR HEMOGLOBIN 26.5 pg (25.0-35.0); MEAN CORPUSCULAR HGB CONC 32.6 g/dl (31.0-37.0); MEAN PLATELET VOLUME 9.3 fl (7.0-11.0); MONO # 0.6 (0.1-0.6); MONO % 7.1 % (1.0-6.0); RBC 4.86 10^6/uL (3.5-6.1); URINE APPEARANCE CLEAR (CLEAR); URINE COLOR YELLOW (YELLOW); WHITE BLOOD COUNT 7.8 10^3/uL (4.5-11.0)
[2018-08-31 13:52] VITALS: BP 140/76; PULSE 92; O2SAT 99
--- NOTE | 2018-08-31 18:21 | CARD ---
APPROVED REPORT Date of service: 08/31/2018 EKG Measurement Heart [id number] [id number] <Conclusion> Normal sinus rhythm Normal ECG
== END 2018-08-31 13:52 | disposition home or self-care (01) ==
LOC: ED 11:30
DX: J45.901 Unspecified asthma with (acute) exacerbation (principal); I10 Essential (primary) hypertension; F17.210 Nicotine dependence, cigarettes, uncomplicated; E05.90 Thyrotoxicosis, unspecified without thyrotoxic crisis or storm
CPT/HCPCS: 71045; 80053; 81003; 83735; 85025; 93005; 96374; 99284; J2930

== ENCOUNTER 2018-10-12 12:12 | Inpatient (IN) | payer MEDICAID ==
[2018-10-12 12:12] VITALS: BMI 37.8
[2018-10-12] MEDS ORDERED: Levalbuterol 1.25 MG/3 ML Inhal Soln UD IH STA ×3 (13:02→15:54)
[2018-10-12 13:12] LABS: VENOUS BLOOD GAS PO2 96 mm/Hg (30-55); VENOUS BLOOD PH 7.38 (7.32-7.43)
[2018-10-12 13:13] LABS: BASO # 0.03 K/mm3 (0.0-2.0); BASO % 0.2 % (0.0-3.0); EOS # 0.6 (0.0-0.7); GRAN # 8.36 (1.4-6.5); GRAN % 54.2 % (50.0-68.0); HEMOGLOBIN 13.2 g/dL (12.0-16.0); LYMPH # 5.5 (1.2-3.4); MEAN CELL VOLUME 80.9 fl (80.0-105.0); MEAN CORPUSCULAR HEMOGLOBIN 26.8 pg (25.0-35.0); MEAN CORPUSCULAR HGB CONC 33.1 g/dl (31.0-37.0); MEAN PLATELET VOLUME 9.3 fl (7.0-11.0); MONO # 0.9 (0.1-0.6); MONO % 5.6 % (1.0-6.0); RBC 4.93 10^6/uL (3.5-6.1); RED CELL DISTRIBUTION WIDTH 13.9 % (11.5-14.5); WHITE BLOOD COUNT 15.4 10^3/uL (4.5-11.0)
[2018-10-12 13:22] LABS: BLOOD UREA NITROGEN 9 mg/dL (7-21); CALCIUM 8.9 mg/dL (8.4-10.5); GFR NON-AFRICAN AMERICAN > 60
[2018-10-12 13:27] LABS: PARTIAL THROMBOPLASTIN TIME 35.5 Seconds (25.1-36.5); PROTHROMBIN TIME 11.5 SECONDS (9.4-12.5)
[2018-10-12 13:34] LABS: TROPONIN I < 0.01 ng/mL
[2018-10-12 13:38] LABS: D DIMER < 200 ng/mlDDU (0-243)
--- NOTE | 2018-10-12 14:01 | ED PDOC ---
Arrival/HPI - General Chief Complaint: Shortness Of Breath Time Seen by Provider: 10/12/18 12:14 Historian: Patient - History of Present Illness Narrative History of Present Illness (Text): 10/12/18 13:57 33yo female with pmhx of hypertension, hypothyroid, Asthma who was referred to ED by Dr. Tolliver for one month history of intermittent nonproductive cough and SOB. Patient states she was seen by her PMD and has been on Promethazine with codeine and neb treatment without relieve. The last time she took Promethazine was 2days ago. She saw her PMD today and was refereed to the ED. Denies fever, chills, nausea, vomiting, diaphoresis, BENTLEY, orthopnea, recent surgery/travel, calf pain, LE edema, any other complaint. Past Medical History - Provider Review Nursing Documentation Reviewed: Yes - Past History Past History: Non-Contributing - Infectious Disease Hx of Infectious Diseases: None - Tetanus Immunization Tetanus Immunization: Unknown - Cardiac Hx Cardiac Disorders: Yes Hx Hypertension: Yes - Pulmonary Hx Respiratory Disorders: Yes Hx Asthma: Yes - Neurological Hx Neurological Disorder: Yes Hx Migraine: Yes - HEENT Hx HEENT Disorder: Yes (eyeglasses) - Renal Hx Renal Disorder: No - Endocrine/Metabolic Hx Endocrine Disorders: Yes Hx Hyperthyroidism: Yes - Hematological/Oncological Hx Blood Disorders: No - Integumentary Hx Dermatological Disorder: No - Musculoskeletal/Rheumatological Hx Musculoskeletal Disorders: Yes Hx Arthritis: Yes (rheumatoid, back knees hands) Other/Comment: b/l carpal tunnel no sx had cortisone shots, b/l ankle pain worse with touch recently started about 4 months ago - Gastrointestinal Hx Gastrointestinal Disorders: Yes (obese, chronic constipation) Hx Gastroesophageal Reflux: Yes - Genitourinary/Gynecological Hx Genitourinary Disorders: No Hx Urinary Tract Infection: (pt denies) - Psychiatric Hx Psychophysiologic Disorder: Yes Hx Anxiety: Yes Hx Depression: Yes Hx Substance Use: No - Surgical History Hx Arthroscopy: Yes (RIGHT SHOULDER) Hx Section: Yes Hx Tubal Ligation: Yes Other/Comment: OVARIAN CYSTECTOMY - Anesthesia Hx Anesthesia: Yes Hx Anesthesia Reactions: Yes (NAUSEA) Hx Malignant Hyperthermia: No - Suicidal Assessment Feels Threatened In Home Enviroment: No Family/Social History - Physician Review Nursing Documentation Reviewed: Yes Family/Social History: Unknown Family HX Smoking Status: Heavy Smoker > 10 Cigarettes Daily Hx Alcohol Use: Yes (occasional) Hx Substance Use: No Hx Substance Use Treatment: No Allergies/Home Meds Allergies/Adverse Reactions: Allergies shellfish derived Allergy (Verified 10/12/18 12:32) ANAPHYLAXIS red 40 Allergy (Uncoded 10/12/18 12:32) ANAPHYLAXIS iv contrast Adverse Reaction (Uncoded 10/12/18 12:32) SHORTNESS OF BREATH Review of Systems - Physician Review All systems were reviewed & negative as marked: Yes - Review of Systems Constitutional: Normal Eyes: Normal ENT: Normal Respiratory: Cough. absent: Sputum, Wheezing Cardiovascular: Normal Gastrointestinal: Normal Genitourinary Female: Normal Musculoskeletal: Normal Skin: Normal Neurological: Normal Endocrine: Normal Hemo/Lymphatic: Normal Psychiatric: Normal Physical Exam Vital Signs Reviewed: Yes Vital Signs Temp Pulse Resp BP Pulse Ox 10/12/18 12:57 18 10/12/18 12:28 98.3 F 138 H 21 149/88 100 Temperature: Afebrile Blood Pressure: Normal Pulse: Regular Respiratory Rate: Normal Appearance: Positive for: Well-Appearing, Non-Toxic, Comfortable Pain Distress: None Mental Status: Positive for: Alert and Oriented X 3 - Systems Exam Head: Present: Atraumatic, Normocephalic Pupils: Present: PERRL Extroacular Muscles: Present: EOMI Conjunctiva: Present: Normal Mouth: Present: Moist Mucous Membranes Neck: Present: Normal Range of Motion Respiratory/Chest: Present: Clear to Auscultation, Good Air Exchange. No: Respiratory Distress, Accessory Muscle Use Cardiovascular: Present: Regular Rate and Rhythm, Normal S1, S2. No: Murmurs Abdomen: No: Tenderness, Distention, Peritoneal Signs Back: Present: Normal Inspection Upper Extremity: Present: Normal Inspection. No: Cyanosis, Edema Lower Extremity: Present: Normal Inspection. No: Edema Neurological: Present: GCS=15, CN II-XII Intact, Speech Normal Skin: Present: Warm, Dry, Normal Color. No: Rashes Psychiatric: Present: Alert, Oriented x 3, Normal Insight, Normal Concentration Medical Decision Making ED Course and Treatment: 10/12/18 16:33 PT in ED for stated history. She was tachy on arrival and coughing. She had diffuse expiratory wheeze on evaluation. she reports using multiple neb/inhaler, which is likley the reason of the tachycardia. Labs Chest CT Xopenex x3 [facility] [place] EKG reassess Lab was reviewed and leukocytosis was noted, pt is however on steroid. Pt's lactate was 2.2, but she doesn't meet the SIRS criteria Chest CT IMPRESSION: No acute findings. EKG Sinus tachy @ 128bpm. No ST changes PT continue to cough and wheeze in ED. Case was ISA Tolliver and pt was admitted to his service. He requested Dr. Ray consult Azithromycin ordered Blood culture pending Result and plan was DW the pt and she agreed - Lab Interpretations Lab Results: 10/12/18 13:00 10/12/18 13:00 Lab Results 10/12/18 13:00: PT 11.5, INR 1.00, APTT 35.5, D-Dimer, Quantitative < 200 10/12/18 13:00: Sodium 137, Chloride 104, Potassium 3.9, Carbon Dioxide 26, Anion Gap 11, BUN 9, Creatinine 0.6 L, Est GFR ( Amer) > 60, Est GFR (Non-Af Amer) > 60, Random Glucose 98, Calcium 8.9, Magnesium 1.8, Lactate Dehydrogenase 444, Total Creatine Kinase 145, Troponin I < 0.01, NT-Pro-B Natri uret Pep Pending 10/12/18 13:00: pO2 96 H, VBG pH 7.38, VBG pCO2 43.0, VBG HCO3 25.4, VBG Total CO2 26.7, VBG O2 Sat (Calc) 99.1 H, VBG Base Excess 0.0, VBG Potassium 3.6, Sodium 135.0, Chloride 103.0, Glucose 99, Lactate 2.2 H, FiO2 21.0, Venous Blood Potassium 3.6 10/12/18 13:00: WBC 15.4 H D, RBC 4.93, Hgb 13.2, Hct 39.9, MCV 80.9, MCH 26.8, MCHC 33.1, RDW 13.9, Plt Count 339, MPV 9.3, Gran % 54.2, Lymph % (Auto) 36.0 H, Hunt % (Auto) 5.6, Eos % (Auto) 4.0, Baso % (Auto) 0.2, Gran # 8.36 H, Lymph # (Auto) 5.5 H, Hunt # (Auto) 0.9 H, Eos # (Auto) 0.6, Baso # (Auto) 0.03 - RAD Interpretation Radiology Orders: 10/12/18 12:57 ANGIO CHEST PE PROTOCOL [CT] Stat - Medication Orders Current Medication Orders: Discontinued Medications Levalbuterol HCl (Xopenex) 1.25 mg IH STAT STA Stop: 10/12/18 13:03 Last Admin: 10/12/18 13:22 Dose: 1.25 mg Levalbuterol HCl (Xopenex) 1.25 mg IH STAT STA Stop: 10/12/18 13:03 Last Admin: 10/12/18 13:22 Dose: 1.25 mg Methylprednisolone (Solu-Medrol) 125 mg IVP STAT STA Stop: 10/12/18 13:03 Last Admin: 10/12/18 13:22 Dose: 125 mg IVP Administration Document 10/12/18 13:22 (Rec: 10/12/18 13:22 [id number] Charges for Administration # of IVP Administrations 1 Disposition/Present on Arrival - Present on Arrival Any Indicators Present on Arrival: No History of DVT/PE: No History of Uncontrolled Diabetes: No Urinary Catheter: No History of Decub. Ulcer: No History Surgical Site Infection Following: None - Disposition Have Diagnosis and Disposition been Completed?: Yes Diagnosis: Asthma exacerbation Disposition: HOSPITALIZED Disposition Time: 15:50 Patient Plan: Admission Patient Problems: Current Active Problems Problem Status Onset Asthma exacerbation Acute Condition: FAIR
[2018-10-12 14:24] LABS: ALB/GLOB RATIO 1.1 (1.1-1.8); ALT/SGPT 22 U/L (7-56); AST/SGOT 30 U/L (14-36); BILIRUBIN,DIRECT 0.2 mg/dL (0.0-0.4)
[2018-10-12 14:57] LABS: B-TYPE NATRIURETIC PEPTIDE 11.1 pg/mL (0-450)
[2018-10-12 15:23] LABS: PH,URINE 6.5 (4.7-8.0); URINE BILIRUBIN NEGATIVE (NEGATIVE); URINE BLOOD NEGATIVE (NEGATIVE); URINE GLUCOSE (UA) NEGATIVE (NEGATIVE); URINE LEUKOCYTE ESTERASE NEGATIVE Leu/uL (NEGATIVE); URINE PROTEIN NEGATIVE mg/dL (<30 mg/dL); URINE UROBILINOGEN 0.2 E.U./dL (<1 E.U./dL)
--- NOTE | 2018-10-12 15:23 | CT ---
Date of service: 10/12/2018 PROCEDURE: CT Chest without contrast HISTORY: cough COMPARISON: Plain radiographs from 08/31/2018 and 05/03/2018 TECHNIQUE: Contiguous axial images were obtained through the chest without intravenous contrast enhancement. Sagittal and coronal reconstructions were performed. Radiation dose: Total exam DLP = 735.72 mGy-cm. This CT exam was performed using one or more of the following dose reduction techniques: Automated exposure control, adjustment of the mA and/or kV according to patient size, and/or use of iterative reconstruction technique. FINDINGS: LUNGS: The lungs are well inflated and clear. No focal consolidation. No endobronchial lesions. MEDIASTINUM: Unremarkable thoracic aorta. No aneurysm. Normal sized heart. Main pulmonary artery unremarkable. No vascular congestion. No lymphadenopathy. No aortic atherosclerotic calcification. PLEURA: No pleural fluid. No pneumothorax. BONES: No fracture. No destructive lesion. UPPER ABDOMEN: Grossly unremarkable. OTHER FINDINGS: There is an enlarged multinodular thyroid. IMPRESSION: No acute findings.
[2018-10-12 15:24] LABS: URINE APPEARANCE CLEAR (CLEAR); URINE COLOR YELLOW (YELLOW)
[2018-10-12] MEDS ORDERED: Azithromycin 500MG/NS 250ml 500 MG/250 ML BAG IVPB STA (15:52)
[2018-10-12] MEDS ORDERED: Promethazine/Cod 6.25mg-10mg/5ml Syr UD PO STA (15:54)
[2018-10-12 17:35] LABS: VENOUS BLOOD GAS BASE EXCESS -0.5 mmol/L (0.0-2.0); VENOUS BLOOD GAS PO2 60 mm/Hg (30-55)
[2018-10-12] MEDS: Promethazine DM 6.25 mg-15 mg/5 ml Syrup PO SCH (19:34)
[2018-10-12] MEDS: Levalbuterol 1.25 MG/3 ML Inhal Soln UD IH SCH (19:41)
--- NOTE | 2018-10-12 20:08 | HP ---
DATE OF EXAM: 10/12/2018 HISTORY OF PRESENT ILLNESS: I saw Rani in my office about 3 hours or earlier. She would not stop coughing. She had lung sounds congested. She had a fever , she was sick. I sent her to the emergency room. She is a 33-year-old female who has got unrelenting nonproductive cough, shortness of breath for about 3 days now, would not go away, she could not take it, she came to my office and sent to the emergency room. She has been on promethazine. PAST MEDICAL HISTORY: She has a past medical history o f hypertension, hypothyroidism, asthma, migraine headaches, she wears eye glasses, rheumatoid arthritis, bilateral carpal tunnel, she has had cortisone shots, bilateral ankle pain, chronic constipation, obesity, GERD, no urine infection, anxiety, depression, no substance abuse. She had right shoulder arthroscopy. She had a section, tubal ligation, and ovarian cystectomy. FAMILY HISTORY: Unknown family history. SOCIAL HISTORY: She is still smoking cigarettes, although she has bad lungs. She still drinks alcohol occasionally. No drugs. ALLERGIES: SHELLFISH, RED DYE, AND IV CONTRAST. REVIEW OF SYSTEMS: No acute vision or hearing changes. Little bit of a sore throat coughing. Little bit of chest pain from all the coughing also. Also, this coughing is unrelenting coughing with some mucus and shortness of breath. No skin issues that she knows of. Not anxious. Not depressed. PHYSICAL EXAMINATION: VITAL SIGNS: She had a temperature 98.3, pulse 138, respiratory rate 21, blood pressure 149/88, and 100% O2 sat on room air. GENERAL: She is not well appearing. She is little bit toxic. She is uncomfortable. She has not stop coughing for 3 days. She is exhausted. Alert and oriented x3. HEENT: Head is atraumatic and normocephalic. Extraocular muscles are intact. Pupils are reactive to light and accommodation. Throat is dry. NECK: Supple. No JVD. HEART: Regular rate, normal S1 and S2. LUNGS: Decreased breath sounds. There is wet lungs on both sides changes with cough, she does have productive mucus. EXTREMITIES: No edema of bilateral lower extremities. NEUROLOGIC: GCS is 15. Cranial nerves II through XII grossly intact. SKIN: Intact. Good turgor. NEUROLOGIC: Alert and oriented x3. No anxiety or depression apparently. LYMPH: Thyroid midline. No palpable appreciable lymphadenopathy. LABORATORY DATA: She had a CAT scan of the chest, which was normal. She has a urine that is clean. She has 137 sodium, potassium is 3.9, BUN 9, creatinine 0.6, GFR is greater than 60, sugar is 98, calcium is 8.9, magnesium 1.8, and total bili is 0.3. AST is 30, ALT is 22, alk phos 88, and lactate dehydrogenase 444. Total creatinine kinase is 145. Troponin I is less than 0.1. BNP is 11.1, total protein 7.6, albumin is 4, and globulin is 3.6. INR is 1. D-dimer is less than 200. She had a lactate of 2.2 then after 3.5. She has a 15.4 white count which is elevated, 13.2 hemoglobin, 39.9 hematocrit with 339 platelets. She has consults with pulmonary for the lungs. MEDICATIONS: Should be on Solu-Medrol, Rocephin, Zithromax, promethazine with codeine, promethazine during the day, and Xopenex. ASSESSMENT AND PLAN: Cardiology will be consulted for the tachycardia and the last blood pressure was 152/81 and 115 pulse. She is here for acute asthma, unrelenting cough, and tachycardia. Kraig Tolliver DO MTDD
[2018-10-12] MEDS: Promethazine/Cod 6.25mg-10mg/5ml Syr UD PO SCH (21:40)
--- NOTE | 2018-10-12 21:41 | CARD ---
APPROVED REPORT Date of service: 10/12/2018 EKG Measurement Heart [id number] [place] [id number] [id number] <Conclusion> Sinus tachycardia Otherwise normal ECG
[2018-10-12] MEDS ORDERED: MethylPREDNISolone 40 mg Vial IVP SCH (22:00)
[2018-10-13 01:11] LABS: VENOUS BLOOD GAS BASE EXCESS -2.2 mmol/L (0.0-2.0); VENOUS BLOOD GAS PO2 32 mm/Hg (30-55); VENOUS BLOOD PH 7.34 (7.32-7.43)
[2018-10-13] MEDS: Levalbuterol 1.25 MG/3 ML Inhal Soln UD IH SCH ×5 (01:43→19:12)
[2018-10-13 06:59] LABS: VENOUS BLOOD GAS BASE EXCESS -2.8 mmol/L (0.0-2.0); VENOUS BLOOD GAS PO2 133 mm/Hg (30-55); VENOUS BLOOD PH 7.38 (7.32-7.43)
[2018-10-13 07:08] LABS: HEMOGLOBIN 12.6 g/dL (12.0-16.0); MEAN CELL VOLUME 79.8 fl (80.0-105.0); MEAN CORPUSCULAR HEMOGLOBIN 26.5 pg (25.0-35.0); MEAN CORPUSCULAR HGB CONC 33.2 g/dl (31.0-37.0); MEAN PLATELET VOLUME 9.3 fl (7.0-11.0); RBC 4.76 10^6/uL (3.5-6.1); RED CELL DISTRIBUTION WIDTH 13.9 % (11.5-14.5); WHITE BLOOD COUNT 13.8 10^3/uL (4.5-11.0)
[2018-10-13] MEDS: MethylPREDNISolone 40 mg Vial IVP SCH ×3 (07:10→21:21)
[2018-10-13] MEDS: Budesonide 0.5 mg/2 ml Inhal Susp UD IH SCH ×3 (07:33→19:13)
[2018-10-13 07:35] LABS: ALB/GLOB RATIO 1.1 (1.1-1.8); ALBUMIN 3.9 g/dL (3.0-4.8); ALT/SGPT 20 U/L (7-56); AST/SGOT 33 U/L (14-36); BLOOD UREA NITROGEN 9 mg/dL (7-21); CALCIUM 9.3 mg/dL (8.4-10.5); GFR NON-AFRICAN AMERICAN > 60
--- NOTE | 2018-10-13 08:54 | CON ---
DATE: 10/13/2018 PULMONARY CONSULTATION REASON FOR PULMONARY CONSULTATION: Asthma. REFERRING PHYSICIAN: Dr. Tolliver. HISTORY OF PRESENT ILLNESS: The patient is a 33-year-old female, with past medical history significant for asthma, recurrent bronchitis, hypertension, who presents to [facility] with a 10-day history of increasing shortness of breath at rest, dyspnea on exertion, cough, and minimal sputum production. There is no history of chest pain. The patient did state to a few flecks of blood in her sputum last week - resolved this week. There is no history of chest pain - brought on with deep respirations. There is no history of temperatures, chills, or infectious exposure. There is no history of night sweats, weight loss or appetite change prior to the above events. No history of leg or calf pains. No history of syncope or diaphoresis. No history of recent travel or trauma. REVIEW OF SYSTEMS: The patient did state there was some vomiting at home. No abdominal pain. No diarrhea. No acute urinary symptoms. No new neurologic or musculoskeletal complaints. Rest of the review of systems is negative. ALLERGIES: TO SHELLFISH AND INTRAVENOUS CONTRAST. SOCIAL HISTORY: Negative for tobacco, negative for alcohol. FAMILY HISTORY: No inheritable diseases. HOME MEDICATIONS: Include Medrol, Cozaar, DuoNebs, and albuterol HFA. PHYSICAL EXAMINATION: GENERAL: The patient is not short of breath(at rest) at the time of my examination. She is not using accessory muscles for breathing. VITAL SIGNS: Last temperature recorded was 99.1, pulse this morning is approximately 90, respiratory rate 18/20, blood pressure 152/81. Oxygen saturation on nasal cannula is 100%. HEENT: Normocephalic, atraumatic. No JVD. CARDIOVASCULAR: Positive S1, S2. No S3 gallop. LUNGS: Decreased breath sounds at the bases. Scattered bilateral rhonchi and wheezing are appreciated. EXTREMITIES: No clubbing, cyanosis or edema. Calves are nontender to palpation. GASTROINTESTINAL: Abdomen is soft, nontender, nondistended. Bowel sounds are positive. SKIN: No acute rash. NEUROLOGIC: Exam limited at the present time. PERTINENT LABORATORY DATA: CAT scan of the chest was done yesterday and reviewed. The lungs are well inflated and clear. There is no evidence of focal consolidation, nodule, or mass. There is no lymphadenopathy. CBC: White count 15.4K, hemoglobin 13.2, hematocrit 39.9, platelets of 339,000. D-dimer is negative at less than 200. Complete metabolic profile: All values are within normal limits. IMPRESSION: 1. Recurrent bronchitis. 2. Asthma. 3. Acute bronchospasm. 4. Hypertension. PLAN: The patient presents to [facility] with a 10-day history of worsening pulmonary symptoms. Again, I did review the CAT scan of the chest. The CAT scan of the chest reveals clear lungs, and no acute findings. I have also reviewed the laboratory data. There is a leukocytosis noted. However, the patient is on steroids as an outpatient. On physical exam, the patient is in moderate bronchospasm. However, there is no significant alveolar-arterial gradient. Oxygen saturation on nasal cannula is 100%. I will increase the intravenous steroids this morning, and also add inhaled Pulmicort. The patient remains on Xopenex nebulizer treatments. The patient does state to feeling better this morning, and is clinically improved. Additional pulmonary intervention will be based on the clinical status of the patient. I will discuss the above with Dr. Tolliver. Thank you very much for this Pulmonary consultation. Calderon Ray MD MTDFior
[2018-10-13] MEDS: Azithromycin 500MG/NS 250ml 500 MG/250 ML BAG IVPB SCH (10:50)
[2018-10-13] MEDS: POLYETHYLENE GLYCOL 3350 17 GM/Dose PACKET PO SCH (10:50)
[2018-10-13] MEDS: cefTRIAXone 1 gm 1 GM/100 ML BAG IVPB SCH (10:50)
--- NOTE | 2018-10-13 11:58 | PN ---
DATE: 10/13/2018 SUBJECTIVE: She is having problems breathing. The cutter and presser increased her steroids. He told me she will be here for another two more nights, we will change it to an inpatient get her out in 24 hours, then she got worse. She is currently on Cozaar, promethazine, Pulmicort, ceftriaxone, Solu-Medrol increased from the start, Xopenex, azithromycin. PHYSICAL EXAMINATION: VITAL SIGNS: She has a 98.2 temperature, 16 pulse, 143/70 blood pressure, 20 respiratory rate, 94% O2 saturation on room air. HEAD: Atraumatic, normocephalic. HEART: Regular rate. LUNGS: Wheezes bilaterally. Congestion, coughing, a little bit worse than yesterday. I understand they increased the Solu-Medrol. ABDOMEN: Soft, nontender. Positive bowel sounds. EXTREMITIES: Trace edema. LABORATORY DATA: She has a 30.8 white count, 12.6 hemoglobin, 38 hematocrit with 328 platelets. Lactate still high at 3.2. Sodium 137, potassium 4, BUN 9, creatinine 0.5, GFR is greater than 60. Sugar is 138, calcium 9.3. Total bilirubin is 0.4, AST is 33, ALT is 20, alk phos 73. Troponin I is less than 0.01, total protein 7.6. Urine was clean. ASSESSMENT AND PLAN: We will increase her Solu-Medrol. I will put her back on the MiraLax and Tylenol and she will be here for a few more days treating her chronic obstructive pulmonary disease. Kraig Tolliver DO MTDFior
--- NOTE | 2018-10-13 14:20 | CON ---
DATE: 10/13/2018 CARDIOLOGY CONSULTATION HISTORY OF PRESENT ILLNESS: The patient is a 33-year-old woman, who presents with an asthmatic attack. She complains of shortness of breath. PAST MEDICAL HISTORY: The patient's past medical history is history of cardiac disease. She was found to be tachycardic between 100 to 115. The patient currently has no cardiac history. No history of arrhythmias. MEDICATIONS: Her medications at home include losartan for high blood pressure. She is on steroids at home. SOCIAL HISTORY: She denies smoking. REVIEW OF SYSTEM: Fourteen-point review of systems is only noted for her dyspnea. PHYSICAL EXAMINATION; VITAL SIGNS: On physical exam, blood pressure varies from 143 to 152 systolic, heart rate is sinus tachycardia. NECK: Negative JVD. LUNGS: Expiratory wheezing. HEART: Reveals S1, S2. EXTREMITIES: Without edema. DIAGNOSTIC DATA: EKG shows sinus tachycardia with no acute changes. LABORATORIES: Reveals a white count of 13.8 with a hemoglobin of 12.6. Chemistries, BUN and creatinine unremarkable. Troponin is negative x1. IMPRESSION: 1. Sinus tachycardia secondary to asthmatic attack and her bronchodilators. 2. Obesity. 3. Hypertension. 4. Dyspnea. PLAN: Given these findings, the treatment for her sinus tachycardia needs to be addressed through improving her respiratory status from her bronchospasm. No beta-sammy should be given. Frederic Allen MD
[2018-10-13] MEDS: Promethazine DM 6.25 mg-15 mg/5 ml Syrup PO SCH (15:32)
[2018-10-13] MEDS: Promethazine/Cod 6.25mg-10mg/5ml Syr UD PO SCH (21:22)
[2018-10-14] MEDS: Levalbuterol 1.25 MG/3 ML Inhal Soln UD IH SCH ×4 (00:05→19:29)
[2018-10-14] MEDS: MethylPREDNISolone 40 mg Vial IVP SCH ×3 (05:55→21:34)
[2018-10-14] MEDS: Budesonide 0.5 mg/2 ml Inhal Susp UD IH SCH ×2 (07:47→19:29)
[2018-10-14 07:51] LABS: HEMOGLOBIN 12.9 g/dL (12.0-16.0); MEAN CELL VOLUME 80.3 fl (80.0-105.0); MEAN CORPUSCULAR HEMOGLOBIN 26.2 pg (25.0-35.0); MEAN CORPUSCULAR HGB CONC 32.7 g/dl (31.0-37.0); MEAN PLATELET VOLUME 9.9 fl (7.0-11.0); RBC 4.92 10^6/uL (3.5-6.1); WHITE BLOOD COUNT 22.8 10^3/uL (4.5-11.0)
[2018-10-14 08:02] LABS: ALB/GLOB RATIO 1.3 (1.1-1.8); ALBUMIN 4.2 g/dL (3.0-4.8); ALT/SGPT 30 U/L (7-56); AST/SGOT 27 U/L (14-36); BLOOD UREA NITROGEN 11 mg/dL (7-21); CALCIUM 9.9 mg/dL (8.4-10.5); GFR NON-AFRICAN AMERICAN > 60
[2018-10-14] MEDS: POLYETHYLENE GLYCOL 3350 17 GM/Dose PACKET PO SCH (09:44)
[2018-10-14] MEDS: Azithromycin 500MG/NS 250ml 500 MG/250 ML BAG IVPB SCH (09:44)
[2018-10-14] MEDS: Promethazine DM 6.25 mg-15 mg/5 ml Syrup PO SCH (09:44)
[2018-10-14] MEDS: cefTRIAXone 1 gm 1 GM/100 ML BAG IVPB SCH (09:47)
--- NOTE | 2018-10-14 11:59 | PN ---
DATE: 10/14/2018 PULMONARY PROGRESS NOTE SUBJECTIVE: The patient was seen and examined at bedside. She is complaining of cough. She is actually coughing nonstop. That interferes with her sleep. Her breathing otherwise have improved. She is on inhalation treatments with levalbuterol and budesonide. She is also on Zithromax and Rocephin intravenously. PHYSICAL EXAMINATION: GENERAL: She is awake and alert in no acute distress. VITAL SIGNS: Temperature is 97.2, pulse 87, respirations 20, pulse oximetry is 97% on room air, blood pressure is 135/81. HEAD, EARS, NOSE, AND THROAT: Within normal limits. NECK: Supple with no jugular vein distention. CARDIOVASCULAR: S1 and S2. No S3. Regular. PULMONARY: Diminished breath sounds at both bases with rhonchi, rales and wheezing. GASTROINTESTINAL: Soft and nontender. No organomegaly. EXTREMITIES: No pedal edema. No cyanosis. NEUROLOGIC: No focal deficits. SKIN: No acute skin rash. LABORATORY DATA: I have reviewed her today's blood work. Her chemistries are completely within normal limits. Blood sugar is slightly elevated at 119. Her WBC is elevated at 22.8 and hemoglobin of 12.9. I have reviewed her initial CBC, which shows 4% eosinophil count. 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 ASSESSMENT AND PLAN: A 33-year-old with bronchial asthma, admitted with exacerbation of asthma and recurrent bronchitis. She is improving; however, the cough is bothersome. I would change the codeine-based syrup to every 4 hours as needed and stop the Phenergan plain syrup. I will discuss with Dr. Ray in reference to her eosinophilic phenotype. She can be a good candidate for biological injectable asthma medications. Wiley Aleman MD
--- NOTE | 2018-10-14 13:29 | PN ---
DATE: 10/14/2018 SUBJECTIVE: I saw her sitting up in bed, coughing and coughing and coughing. She coughed all night. She tells me she is exhausted. She is on Phenergan with Codeine and I added Tessalon Perles. She is on Cozaar, MiraLax, Codeine Cough liquid, Pulmicort, Rocephin, Solu-Medrol, she is down to 30 IV every 8 hours. I added Tessalon Perles, Tylenol, Xopenex and azithromycin. She is uncomfortable. She cannot sleep. She is coughing persistent 24 x 7. PHYSICAL EXAMINATION: VITAL SIGNS: Temperature 97.2, 87 pulse, 135/81 blood pressure, 20 respiratory rate, 100% sat on room air. HEAD: Atraumatic, normocephalic. Throat is moist. NECK: Supple. HEART: Regular rate. LUNGS: Decreased breath sounds, congestion bilaterally, changes with cough but she is nonstop coughing the whole time I am there. ABDOMEN: Soft, obese, nontender. EXTREMITIES: No edema. LABORATORY DATA: She has a 22.8 white count from the steroids, 12.9 hemoglobin, 39.5 hematocrit with 295 platelets. Lactate is 3.2. I think I am going to call Infectious Disease and get his opinion. Sodium is 138, potassium 4.5, BUN 11, creatinine 0.6, GFR is greater 60, sugar is 119, calcium 9.9, total bili is 0.3, AST is 27, ALT is 30, alk phos 82, total protein 7.5. We will also do a urinalysis, culture sensitivity because every time she is coughing now, she is urinating, losing control and she did not do that before, so we will do urinalysis, culture sensitivity. PLAN: I added some Tessalon Perles to her Solu-Medrol and her cough medicine with codeine. I am going to consult Infectious Disease to make sure we are not missing any kind of infection, although the chest x-ray was clean. Kraig Tolliver DO
[2018-10-14 15:28] LABS: URINE APPEARANCE CLEAR (CLEAR); URINE BILIRUBIN NEGATIVE (NEGATIVE); URINE BLOOD NEGATIVE (NEGATIVE); URINE COLOR YELLOW (YELLOW); URINE GLUCOSE (UA) NEGATIVE (NEGATIVE); URINE LEUKOCYTE ESTERASE NEGATIVE Leu/uL (NEGATIVE); URINE PROTEIN NEGATIVE mg/dL (<30 mg/dL); URINE UROBILINOGEN 0.2 E.U./dL (<1 E.U./dL)
[2018-10-14] MEDS: Promethazine/Cod 6.25mg-10mg/5ml Syr UD PO SCH (21:34)
[2018-10-15] MEDS: Levalbuterol 1.25 MG/3 ML Inhal Soln UD IH SCH ×5 (00:56→19:17)
[2018-10-15] MEDS: Promethazine/Cod 6.25mg-10mg/5ml Syr UD PO PRN ×4 (01:08→17:08)
[2018-10-15] MEDS: MethylPREDNISolone 40 mg Vial IVP SCH ×3 (06:08→21:33)
[2018-10-15 07:23] LABS: HEMOGLOBIN 12.8 g/dL (12.0-16.0); MEAN CELL VOLUME 80.4 fl (80.0-105.0); MEAN CORPUSCULAR HEMOGLOBIN 26.4 pg (25.0-35.0); MEAN CORPUSCULAR HGB CONC 32.8 g/dl (31.0-37.0); MEAN PLATELET VOLUME 9.9 fl (7.0-11.0); RBC 4.85 10^6/uL (3.5-6.1); RED CELL DISTRIBUTION WIDTH 13.8 % (11.5-14.5); WHITE BLOOD COUNT 19.4 10^3/uL (4.5-11.0)
[2018-10-15] MEDS: Budesonide 0.5 mg/2 ml Inhal Susp UD IH SCH ×2 (07:40→19:18)
[2018-10-15 07:57] LABS: ALBUMIN 3.7 g/dL (3.0-4.8); ALT/SGPT 51 U/L (7-56); AST/SGOT 40 U/L (14-36); BLOOD UREA NITROGEN 14 mg/dL (7-21); CALCIUM 9.3 mg/dL (8.4-10.5); GFR NON-AFRICAN AMERICAN > 60
[2018-10-15] MEDS: Azithromycin 500MG/NS 250ml 500 MG/250 ML BAG IVPB SCH (10:40)
[2018-10-15] MEDS: POLYETHYLENE GLYCOL 3350 17 GM/Dose PACKET PO SCH (10:40)
--- NOTE | 2018-10-15 13:42 | PN ---
DATE: 10/15/2018 SUBJECTIVE: I saw her in bed. She is still coughing better. She is telling me she feels that the sinus is the reason for this, could be a postnasal issue. She wants to see Ear, Nose and Throat, so I will consult the Ear, Nose and Throat. She is eating a little bit. PHYSICAL EXAMINATION: VITAL SIGNS: She has a 98.7 temp, 88 pulse, 133/84 blood pressure, 20 respiratory rate, 96% O2 sat on room air. HEENT: Head is atraumatic, normocephalic. Throat is moist. NECK: Supple. HEART: Regular rate. LUNGS: The best I have heard are clear. No wheezes, rhonchi or rales. ABDOMEN: Soft, obese. EXTREMITIES: No edema. I am not sure why she is having persistent cough, which is relentless. MEDICATIONS: Cozaar, MiraLax, Phenergan with codeine, Pulmicort, Solu-Medrol down to 20 IV every 8 hours; decreased from 30, Tessalon Perles, Tylenol, Xopenex and Zithromax. LABORATORY DATA: She has a 90.8 white count from the steroids, 12.8 hemoglobin, 39 hematocrit with 364 platelets. Her last lactate was 3.2. Sodium 137, potassium 4.2, BUN 40, creatinine 0.6, GFR greater than 60, sugar is 119, calcium 9.3, total bili is 0.3, AST is 40, ALT is 51, alk phos 7, total protein 7.3. Urine was clean. ASSESSMENT AND PLAN: She is being seen by Pulmonary and Cardiology. I will do a chest x-ray, decrease the Solu-Medrol and we will get labs tomorrow. I am hoping maybe she is improved and if okay with the other doctors, I can possibly discharge her tomorrow afternoon. She still has persisting unrelenting cough. Kraig Tolliver DO MTDF[facility]
[2018-10-15 16:38] VITALS: O2SAT 98
--- NOTE | 2018-10-15 17:26 | CP.PCM.CON ---
History of Present Illness - History of Present Illness History of Present Illness: 33 year old female with PMH of asthma, HTN, hypothyroidism, obesity with BMI 38 came [place] [facility] [place] of non-productive cough with shortness of breath for the past 4 weeks. She has been given treatment for asthma as well as cough syrup with partial relief but the cough persists. She denies chest pain, no fever or chills, no animal contacts, no recent travel outside of [place] in the past 3 months, denies headache or dizziness, no abdominal pain, no diarrhea, no dysuria. CXR did not show pneumonia. Infectious Diseases consult is requested to further evaluate and manage. Review of Systems - Review of Systems All systems: reviewed and no additional remarkable complaints except (as per HPI) Past Patient History - Infectious Disease Hx of Infectious Diseases: None - Tetanus Immunizations Tetanus Immunization: Unknown - Past Medical History & Family History Past Medical History?: Yes - Past Social History Smoking Status: Current Some Days Smoker - CARDIAC Hx Hypertension: Yes - PULMONARY Hx Asthma: Yes Hx Bronchitis: Yes - NEUROLOGICAL Hx Neurological Disorder: Yes Hx Migraine: Yes - HEENT Hx HEENT Problems: Yes (eyeglasses) - RENAL Hx Chronic Kidney Disease: No - ENDOCRINE/METABOLIC Hx Hyperthyroidism: Yes - HEMATOLOGICAL/ONCOLOGICAL Hx Blood Disorders: No - INTEGUMENTARY Hx Dermatological Problems: No - MUSCULOSKELETAL/RHEUMATOLOGICAL Hx Falls: No - GASTROINTESTINAL Hx Gastrointestinal Disorders: Yes (obese, chronic constipation) Hx Gastroesophageal Reflux: Yes - GENITOURINARY/GYNECOLOGICAL Hx Genitourinary Disorders: No Hx Urinary Tract Infection: (pt denies) - PSYCHIATRIC Hx Psychophysiologic Disorder: Yes Hx Anxiety: Yes Hx Depression: Yes Hx Substance Use: No - SURGICAL HISTORY Hx Arthroscopy: Yes (RIGHT SHOULDER) Hx Section: Yes Hx Tubal Ligation: Yes Other/Comment: OVARIAN CYSTECTOMY - ANESTHESIA Hx Anesthesia: Yes Hx Anesthesia Reactions: Yes (NAUSEA) Hx Malignant Hyperthermia: No Meds Allergies/Adverse Reactions: Allergies Allergy/AdvReac Type Severity Reaction Status Date / Time shellfish derived Allergy ANAPHYLAXIS Verified 10/12/18 12:32 red 40 Allergy ANAPHYLAXIS Uncoded 10/12/18 12:32 iv contrast AdvReac SHORTNESS Uncoded 10/12/18 12:32 OF BREATH - Medications Medications: Current Medications Acetaminophen (Tylenol 325mg Tab) 650 mg PO Q4H PRN PRN Reason: Headache Last Admin: 10/15/18 06:14 Dose: 650 mg Benzonatate (Tessalon Perles) 200 mg PO TID [facility] Last Admin: 10/14/18 17:55 Dose: 200 mg Budesonide (Pulmicort Respules) 0.5 mg IH [id number] [facility] Last Admin: 10/14/18 19:29 Dose: 0.5 mg Azithromycin (Zithromax 500mg In Ns) 500 mg in 250 mls @ 167 mls/hr IVPB DAILY [facility]; Protocol Last Admin: 10/14/18 09:44 Dose: 167 mls/hr Levalbuterol HCl (Xopenex) 1.25 mg IH [id number] [facility] Last Admin: 10/15/18 01:02 Dose: Not Given Losartan Potassium (Cozaar) 50 mg PO DAILY [facility] Last Admin: 10/14/18 09:43 Dose: 50 mg Methylprednisolone (Solu-Medrol) 30 mg IVP Q8 [facility] Last Admin: 10/15/18 06:08 Dose: 30 mg Polyethylene Glycol (Miralax) 17 gm PO DAILY [facility] Last Admin: 10/14/18 09:44 Dose: 17 gm Promethazine HCl/Codeine (Phenergan/Codeine Oral Syrup) 5 ml PO HS [facility] Last Admin: 10/14/18 21:34 Dose: 5 ml Promethazine HCl/Codeine (Phenergan/Codeine Oral Syrup) 5 ml PO Q4H PRN PRN Reason: Cough and congestion Last Admin: 10/15/18 06:08 Dose: 5 ml Physical Exam - Constitutional Appears: Chronically Ill - Head Exam Head Exam: NORMAL INSPECTION - Neck Exam Neck exam: Negative for: Meningismus - Respiratory Exam Respiratory Exam: Decreased Breath Sounds - Cardiovascular Exam Cardiovascular Exam: +S1, +S2 - GI/Abdominal Exam GI & Abdominal Exam: Soft. absent: Tenderness Results - Vital Signs Recent Vital Signs: Last Vital Signs Temp 97.6 F 10/14/18 14:00 Pulse 89 10/14/18 14:00 Resp 20 10/14/18 14:00 BP 143/83 10/14/18 14:00 Pulse Ox 98 10/14/18 14:00 - Labs Result Diagrams: 10/15/18 06:30 10/15/18 06:30 Labs: Laboratory Results - last 24 hr 10/14/18 10/14/1818 07:00 07:00 15:00 WBC 22.8 H D RBC 4.92 Hgb 12.9 Hct 39.5 MCV 80.3 MCH 26.2 MCHC 32.7 RDW 14.0 Plt Count 395 MPV 9.9 Sodium 138 Potassium 4.5 Chloride 102 Carbon Dioxide 26 Anion Gap 14 BUN 11 Creatinine 0.6 L Est GFR ( Amer) > 60 Est GFR (Non-Af Amer) > 60 Random Glucose 119 H Calcium 9.9 Total Bilirubin 0.3 AST 27 ALT 30 Alkaline Phosphatase 82 Total Protein 7.5 Albumin 4.2 Globulin 3.2 Albumin/Globulin Ratio 1.3 Urine Color Yellow Urine Appearance Clear Urine pH 7.0 Ur Specific [place] 1.010 Urine Protein Negative Urine Glucose (UA) Negative Urine Ketones Negative Urine Blood Negative Urine Nitrate Negative Urine Bilirubin Negative Urine Urobilinogen 0.2 Ur Leukocyte Esterase Negative Assessment & Plan - Assessment and Plan (Free Text) Plan: Assessment consider recurrent bronchitis in this patient with asthma HTN hypothyroidism obesity with BMI 38 Plan continue Zithromax (day 2); patient has already had 1 month of cough and even if this was pertussis, it wound not be effective to treat or test for this anymore continue steroids as per Pulmonary
--- NOTE | 2018-10-15 17:39 | RAD ---
HISTORY: cough COMPARISON: Chest x-ray performed 08/31/18, CT chest without IV contrast performed 10/12/18 TECHNIQUE: Chest PA and lateral FINDINGS: LUNGS: No focal consolidation. Please note that chest x-ray has limited sensitivity for the detection of pulmonary masses. PLEURA: No significant pleural effusion identified. No definite pneumothorax . CARDIOVASCULAR: Heart size appears within normal limits. OSSEOUS STRUCTURES: Postsurgical changes of the right humeral head. VISUALIZED UPPER ABDOMEN: Unremarkable. OTHER FINDINGS: None. IMPRESSION: No focal consolidation.
--- NOTE | 2018-10-15 18:52 | PN ---
DATE: 10/15/2018 SUBJECTIVE: The patient was seen and examined at bedside. The cough has improved since we started codeine syrup every 4 hours. She is still on azithromycin and Solu-Medrol as well as inhalation therapy. PHYSICAL EXAMINATION VITAL SIGNS: Temperature 98, pulse 84, respirations 18, blood pressure is 130/80. HEAD: Normocephalic, atraumatic. NECK: Supple with no jugular vein distention. CARDIOVASCULAR: S1 and S2. No S3. Regular. PULMONARY: Diminished wheezing filed with moderate obstruction. GASTROINTESTINAL: Soft and nontender. No organomegaly. EXTREMITIES: No pedal edema. NEUROLOGIC: No focal deficits. ASSESSMENT: Excerebration of severe bronchial asthma. PLAN: The patient can be switched to oral prednisone in preparation for discharge. She is doing better. I examined her blood work. She may be a good candidate for biological agents; I gave her information on that. Wiley Aleman MD
[2018-10-15] MEDS: Promethazine/Cod 6.25mg-10mg/5ml Syr UD PO SCH (21:34)
[2018-10-16] MEDS: Levalbuterol 1.25 MG/3 ML Inhal Soln UD IH SCH ×2 (01:10→07:40)
[2018-10-16] MEDS: MethylPREDNISolone 40 mg Vial IVP SCH (05:38)
[2018-10-16] MEDS: Budesonide 0.5 mg/2 ml Inhal Susp UD IH SCH (07:39)
[2018-10-16 07:51] VITALS: BP 135/74; PULSE 70; RESP 18; TEMP 98.6
[2018-10-16 08:10] LABS: HEMOGLOBIN 13.2 g/dL (12.0-16.0); MEAN CELL VOLUME 79.9 fl (80.0-105.0); MEAN CORPUSCULAR HEMOGLOBIN 26.8 pg (25.0-35.0); MEAN CORPUSCULAR HGB CONC 33.5 g/dl (31.0-37.0); MEAN PLATELET VOLUME 9.3 fl (7.0-11.0); RBC 4.93 10^6/uL (3.5-6.1); RED CELL DISTRIBUTION WIDTH 13.7 % (11.5-14.5); WHITE BLOOD COUNT 20.8 10^3/uL (4.5-11.0)
[2018-10-16 08:35] LABS: ALB/GLOB RATIO 1.1 (1.1-1.8); ALT/SGPT 53 U/L (7-56); AST/SGOT 28 U/L (14-36); BLOOD UREA NITROGEN 15 mg/dL (7-21); CALCIUM 9.2 mg/dL (8.4-10.5); GFR NON-AFRICAN AMERICAN > 60
[2018-10-16] MEDS: Azithromycin 500MG/NS 250ml 500 MG/250 ML BAG IVPB SCH (09:56)
[2018-10-16] MEDS: POLYETHYLENE GLYCOL 3350 17 GM/Dose PACKET PO SCH (09:57)
--- NOTE | 2018-10-16 10:22 | PN ---
DATE: 10/16/2018 SUBJECTIVE: The patient appears very comfortable this morning. She is not short of breath at rest. VITALS: Last temperature recorded is 98.9, pulse this morning is 88, respiratory rate 18/20, last blood pressure recorded is 139/100. Oxygen saturation on room air is 98%. HEENT: Normocephalic, atraumatic. No JVD. CARDIOVASCULAR: Positive S1, S2. No S3 gallop. LUNGS: Clear bilaterally this morning. EXTREMITIES: No clubbing, cyanosis or edema. Calves are nontender to palpation. GI: Abdomen is soft, nontender and nondistended. Bowel sounds are positive. SKIN: No acute rash. NEUROLOGIC: Exam limited at the present time. IMPRESSION: 1. Recurrent bronchitis. 2. Asthma. 3. Acute bronchospasm. 4. Hypertension. PLAN: The patient appears very comfortable this morning. She is not short of breath at rest. Her cough is resolving. She does state to feeling much, much better overall. On physical exam, her lungs are now clear. In addition, the oxygen saturation on room air is now 98%. I will continue the current nebulizer treatments and change to oral steroids this morning. Clinical status of the patient is significantly improved - compared to initial presentation. The patient is asking to be discharged today. I will discuss the above with Dr. Tolliver. Calderon Ray MD MTD[facility]
--- NOTE | 2018-10-16 11:01 | CP.PCM.CON ---
History of Present Illness - History of Present Illness History of Present Illness: ENT Consult note: Patient is a 33 yo female with a history of asthma, migraines, HTN, hypothyroid (not on meds), endometriosis, and arthritis (?RA) who presented on 10/12 for persistent coughing. Patient was using multiple medications for her asthma at home, but continued to having worsening symptoms, especially cough, that woke her up nightly. Patient also complains of post-nasal drip and occasional nose bleeds. She had a sore throat on admission that has since resolved. She has b/l temporal pain. Denies face pain/pressure. Patient also reports having allergies, as tested by Dr. Padilla. She does not receive allergy shots. Patient states she has nasopharygoscopy during a previous hospitalization during which they found polyps, but she did not follow-up as an outpatient and this report cannot be found. Admits to chest tightness, chest pain with cough, and post-tussive vomiting. Admits to intermittent globus sensation. Denies regurgitation of food products or halitosis. Denies fevers/chills, palpitations, abdominal pain, diarrhea, constipation, or swelling. PMH: asthma, HTN, hypothyroidism, endometriosis, migraines, arthritis/RA (receives steroid shots in knees by Dr. Ambrose) PSH: tubal ligation, emergency 2004, subsequent C-sections, ovarian cystectomies, LEEP 2006, D&C, 2 surgeries on R shoulder Meds: Tylenol 650 mg PO Q4H PRN, Azithromycin 500 mg IV daily (started 10/13), Tessalon perles 200 mg PO TID, Pulmicort Q12H, Levalbuterol Q6H, Losartan 50 mg PO daily, Miralax 17 mg PO daily, Prednisone 40 mg PO daily (taper) All: shellfish, IV contrast, red dye #40 FH: maternal grandmother- lung [place] (smoker) SH: Lives with fiance, 2 kids, rabbit Unemployed Former smoker- quit in April 2018, smoked intermittently since age 18, max 1 ppd Occasional alcohol use- 1x/month Denies illicit drug use, including IVDA PMD: Dr. Kraig Tolliver Review of Systems - Constitutional Constitutional: Headache. absent: Chills, Fever - EENT Eyes: absent: Change in Vision Ears: absent: Ear Pain, Tinnitus, Dizziness Nose/Mouth/Throat: Epistaxis, Nasal Congestion, Post Nasal Drip, Sinus Pressure. absent: Nasal Obstruction, Nasal Trauma, Nose Pain, Sinus Pain, Dysphagia, Halitosis, Hoarsness, Sore Throat - Cardiovascular Cardiovascular: absent: Chest Pain, Diaphoresis, Dyspnea, Lightheadedness, Palpitations, Pedal Edema - Respiratory Respiratory: Cough, Hemoptysis, Chest Congestion, Pain with Coughing. absent: Dyspnea, Wheezing - Gastrointestinal Gastrointestinal: Vomiting (post-tussive). absent: Abdominal Pain, Constipation, Diarrhea, Nausea - Genitourinary Genitourinary: absent: Dysuria, Hematuria - Musculoskeletal Musculoskeletal: absent: Neck Pain, Numbness, Tingling - Integumentary Integumentary: absent: Dry Skin, Lesions - Neurological Neurological: absent: Dizziness, Numbness, Focal Weakness, Sensory Deficit, Tingling, Tremor - Endocrine Endocrine: absent: Fatigue, Flushing, Palpitations - Hematologic/Lymphatic Hematologic: absent: Easy Bruising, Lymphadenopathy Past Patient History - Infectious Disease Hx of Infectious Diseases: None - Tetanus Immunizations Tetanus Immunization: Unknown - Past Medical History & Family History Past Medical History?: Yes Pertinent Family History: maternal grandmother- lung [place] - Past Social History Smoking Status: Former Smoker (quit April 2018) Chewing Tobacco Use: No Cigar Use: No Alcohol: Occasional Drugs: Denies Home Situation {Lives}: With Family (fiance, 2 children) - CARDIAC Hx Hypertension: Yes - PULMONARY Hx Asthma: Yes Hx Bronchitis: Yes - NEUROLOGICAL Hx Neurological Disorder: Yes Hx Migraine: Yes - HEENT Hx HEENT Problems: Yes (eyeglasses) - RENAL Hx Chronic Kidney Disease: No - ENDOCRINE/METABOLIC Hx Hyperthyroidism: Yes - HEMATOLOGICAL/ONCOLOGICAL Hx Blood Disorders: No - INTEGUMENTARY Hx Dermatological Problems: No - MUSCULOSKELETAL/RHEUMATOLOGICAL Hx Falls: No - GASTROINTESTINAL Hx Gastrointestinal Disorders: Yes (obese, chronic constipation) Hx Gastroesophageal Reflux: Yes - GENITOURINARY/GYNECOLOGICAL Hx Genitourinary Disorders: No Hx Urinary Tract Infection: (pt denies) - PSYCHIATRIC Hx Psychophysiologic Disorder: Yes Hx Anxiety: Yes Hx Depression: Yes Hx Substance Use: No - SURGICAL HISTORY Hx Arthroscopy: Yes (RIGHT SHOULDER) Hx Section: Yes Hx Tubal Ligation: Yes Other/Comment: OVARIAN CYSTECTOMY - ANESTHESIA Hx Anesthesia: Yes Hx Anesthesia Reactions: Yes (NAUSEA) Hx Malignant Hyperthermia: No Meds Allergies/Adverse Reactions: Allergies Allergy/AdvReac Type Severity Reaction Status Date / Time shellfish derived Allergy ANAPHYLAXIS Verified 10/12/18 12:32 red 40 Allergy ANAPHYLAXIS Uncoded 10/12/18 12:32 iv contrast AdvReac SHORTNESS Uncoded 10/12/18 12:32 OF BREATH - Medications Medications: Current Medications Acetaminophen (Tylenol 325mg Tab) 650 mg PO Q4H PRN PRN Reason: Headache Last Admin: 10/16/18 05:38 Dose: 650 mg Benzonatate (Tessalon Perles) 200 mg PO TID [facility] Last Admin: 10/16/18 09:56 Dose: 200 mg Budesonide (Pulmicort Respules) 0.5 mg IH [id number] [facility] Last Admin: 10/16/18 07:39 Dose: 0.5 mg Azithromycin (Zithromax 500mg In Ns) 500 mg in 250 mls @ 167 mls/hr IVPB DAILY [facility]; Protocol Last Admin: 10/16/18 09:56 Dose: 167 mls/hr Levalbuterol HCl (Xopenex) 1.25 mg IH [id number] [facility] Last Admin: 10/16/18 07:40 Dose: 1.25 mg Losartan Potassium (Cozaar) 50 mg PO DAILY [facility] Last Admin: 10/16/18 09:55 Dose: 50 mg Polyethylene Glycol (Miralax) 17 gm PO DAILY [facility] Last Admin: 10/16/18 09:57 Dose: 17 gm Prednisone (Prednisone Tab) 40 mg PO DAILY [facility] Last Admin: 10/16/18 09:56 Dose: 40 mg Promethazine HCl/Codeine (Phenergan/Codeine Oral Syrup) 5 ml PO HS [facility] Last Admin: 10/15/18 21:34 Dose: 5 ml Promethazine HCl/Codeine (Phenergan/Codeine Oral Syrup) 5 ml PO Q4H PRN PRN Reason: Cough and congestion Last Admin: 10/15/18 17:08 Dose: 5 ml Physical Exam - Constitutional Appears: Well, Non-toxic, No Acute Distress - Head Exam Head Exam: ATRAUMATIC, NORMAL INSPECTION, NORMOCEPHALIC - Eye Exam Eye Exam: EOMI, Normal appearance, PERRL. absent: Conjunctival injection - ENT Exam ENT Exam: Mucous Membranes Moist, Normal Exam, Normal External Ear Exam, Normal Oropharynx, TM's Normal Bilaterally Additional comments: erythematous nasal mucosa nasal septum midline, intact - Neck Exam Neck exam: Positive for: Normal Inspection. Negative for: Lymphadenopathy, Thyromegaly - Respiratory Exam Respiratory Exam: Clear to Auscultation Bilateral, NORMAL BREATHING PATTERN. absent: Wheezes, Respiratory Distress - Cardiovascular Exam Cardiovascular Exam: REGULAR RHYTHM, +S1, +S2 - GI/Abdominal Exam GI & Abdominal Exam: Soft. absent: Distended, Tenderness - Extremities Exam Extremities exam: Positive for: normal inspection, pedal pulses present. Neg ative for: pedal edema, tenderness - Back Exam Back exam: NORMAL INSPECTION - Neurological Exam Neurological exam: Alert, CN II-XII Intact, Oriented x3 - Psychiatric Exam Psychiatric exam: Normal Affect, Normal Mood - Skin Skin Exam: Dry, Intact, Normal Color, Warm Results - Vital Signs Recent Vital Signs: Last Vital Signs Temp 98.6 F 10/16/18 06:00 Pulse 70 10/16/18 09:55 Resp 18 10/16/18 06:00 BP 135/74 10/16/18 09:55 Pulse Ox 98 10/16/18 06:00 - Labs Result Diagrams: 10/16/18 08:00 10/16/18 08:00 Labs: Laboratory Results - last 24 hr 10/15/18 10/16/18 10/16/18 14:03 08:00 08:00 WBC 20.8 H RBC 4.93 Hgb 13.2 Hct 39.4 MCV 79.9 L MCH 26.8 MCHC 33.5 RDW 13.7 Plt Count 397 MPV 9.3 Sodium 137 Potassium 4.3 Chloride 100 Carbon Dioxide 29 Anion Gap 13 BUN 15 Creatinine 0.7 Est GFR ( Amer) > 60 Est GFR (Non-Af Amer) > 60 Random Glucose 114 H Calcium 9.2 Total Bilirubin 0.3 AST 28 ALT 53 Alkaline Phosphatase 68 Total Protein 7.8 Albumin 4.0 Globulin 3.8 Albumin/Globulin Ratio 1.1 Urine HCG, Qual Negative Assessment & Plan - Assessment and Plan (Free Text) Assessment: Patient is a 33 yo female with asthma exacerbation. ENT consulted for sinus evaluation. Plan: - Recommend antihistamine, intranasal steroid, and PPI as outpatient - No indication for emergent ENT intervention at this time - Follow-up with Dr. Quiroz as outpatient for further work-up - Continue with medical management as per primary and pulmonology for asthma Case was discussed with attending, Dr. Quiroz. PGY-1 Aminta Hodge D.O.
--- NOTE | 2018-10-16 11:16 | DS ---
HISTORY OF PRESENT ILLNESS: This is actually the first day she started to come around with . She has been coughing straight for about a week and a half now and finally it is starting to subside. She has gotten a little bit of sleep, so I discussed this with the painter and grader cork, then we will change it to p.o. prednisone and we will get her out of here and see her in the office this week. I am going to put her on prednisone 40 for three, 30 for three, 20 for three, 10 for three and hopefully she will improve and she also wants to go home. PHYSICAL EXAMINATION: VITAL SIGNS: She has a 98.6 temperature, 70 pulse, 135/74 blood pressure, 18 respiratory rate, 90% O2 sat on room air. HEENT: Head is atraumatic, normocephalic. Throat is moist. NECK: Supple. HEART: Regular rate. LUNGS: Decreased breath sounds, but mostly clear. No wheezes, rhonchi or rales. ABDOMEN: Soft and obese. EXTREMITIES: No edema. MEDICATIONS: She will go home on Cozaar, MiraLax, Phenergan with codeine, prednisone, Pulmicort, Tessalon, Tylenol, Xopenex, azithromycin for a few more days. LABORATORY DATA: She has a 20.8 white count from the steroids, 13.2 hemoglobin, 39.4 hematocrit with 287 platelets. Sodium 137, potassium is 4.3, BUN 15, creatinine 0.7, GFR is greater than 60, sugar is 114, calcium is 9.2. Total bilirubin is 0.3, AST is 28, ALT is 53, alk phos 68, total protein is 7.8. She was here for a cough, asthmatic; tachycardia; COPD picture. She is being discharged today. Kraig Tolliver DO MTDD
== END 2018-10-16 13:24 | disposition home or self-care (01) | DRG 96 ==
LOC: ED 12:12 → ERH 15:51 → 5RNO 17:05 → OBSVTOIN 10-13 09:49
PROVIDERS: ADMIT Family Medicine; ATTEND Family Medicine
PROC: 3E0F7GC Introduction of Other Therapeutic Substance into Respiratory Tract, Via Natural or Artificial Opening (ICD-10-PCS; principal; 2018-10-12)
DX: J45.901 Unspecified asthma with (acute) exacerbation (principal); J44.9 Chronic obstructive pulmonary disease, unspecified; E03.9 Hypothyroidism, unspecified; I10 Essential (primary) hypertension; M06.9 Rheumatoid arthritis, unspecified; F17.210 Nicotine dependence, cigarettes, uncomplicated; E66.9 Obesity, unspecified; Z68.38 Body mass index [BMI] 38.0-38.9, adult; K21.9 Gastro-esophageal reflux disease without esophagitis

== ENCOUNTER 2018-11-13 05:56 | Outpatient (CLI) | payer MEDICAID | END 2018-11-13 05:57 | disposition home or self-care (01) | LOC: CARDIO 05:56 ==

== ENCOUNTER 2018-11-15 08:32 | Inpatient (IN) | payer MEDICAID ==
[2018-11-15 08:36] VITALS: BMI 39.9
[2018-11-15] MEDS ORDERED: Ipratropium 0.02% Inhal Soln (0.5 mg/2.5 ml) UD IH STA (08:37)
[2018-11-15] MEDS ORDERED: Levalbuterol 1.25 MG/3 ML Inhal Soln UD IH STA (08:37)
--- NOTE | 2018-11-15 08:37 | ED PDOC ---
Arrival/HPI - General Chief Complaint: Shortness Of Breath Time Seen by Provider: 11/15/18 08:35 Historian: Patient, EMS - History of Present Illness Narrative History of Present Illness (Text): 11/15/18 08:37 Rani Huerta is a 33 year old female, whose past medical history includes asthma, hypertension, hypothyroidism, migraines, RA, and obesity, who presents to the Emergency department brought in by EMS for respiratory distress. As per patient, she woke up today with progressively worsening shortness of breath and wheezing at home, with associated cough, congestion, and rhinorrhea. Patient states she used her nebulizer treatments and inhaler at home with no significant relief. EMS was notified and patient received 1 Duonenb, 2 Albuterol, Solu- medrol 125mg, magnesium sulfate, and 1 Brethine with minimal improvement. Patient notes she has been ill with similar symptoms intermittently since she was last discharged from the hospital on 10/16/2018. Patient denies any chest pain, abdominal pain, nausea, vomiting, or any other complaints. PMD: Dr. Tolliver Symptom Onset: Gradual Symptom Course: Worsening Activities at Onset: Light Context: Home Past Medical History - Provider Review Nursing Documentation Reviewed: Yes - Past History Past History: Non-Contributing - Infectious Disease Hx of Infectious Diseases: None - Tetanus Immunization Tetanus Immunization: Unknown - Cardiac Hx Hypertension: Yes - Pulmonary Hx Asthma: Yes - Neurological Hx Neurological Disorder: Yes Hx Migraine: Yes - HEENT Hx HEENT Disorder: Yes (eyeglasses) - Renal Hx Renal Disorder: No - Endocrine/Metabolic Hx Hyperthyroidism: Yes - Hematological/Oncological Hx Blood Disorders: No - Integumentary Hx Dermatological Disorder: No - Musculoskeletal/Rheumatological Hx Arthritis: Yes - Gastrointestinal Hx Gastrointestinal Disorders: Yes (obese, chronic constipation) Hx Gastroesophageal Reflux: Yes - Genitourinary/Gynecological Hx Genitourinary Disorders: No Hx Urinary Tract Infection: (pt denies) - Psychiatric Hx Psychophysiologic Disorder: Yes Hx Anxiety: Yes Hx Depression: Yes Hx Substance Use: No - Surgical History Hx Arthroscopy: Yes (RIGHT SHOULDER) Hx Section: Yes Hx Tubal Ligation: Yes Other/Comment: OVARIAN CYSTECTOMY - Anesthesia Hx Anesthesia: Yes Hx Anesthesia Reactions: Yes (NAUSEA) Hx Malignant Hyperthermia: No - Suicidal Assessment Feels Threatened In Home Enviroment: No Family/Social History - Physician Review Nursing Documentation Reviewed: Yes Family/Social History: Unknown Family HX Smoking Status: Former Smoker (quit April 2018) Hx Alcohol Use: Yes (occasional) Hx Substance Use: No Hx Substance Use Treatment: No Allergies/Home Meds Allergies/Adverse Reactions: Allergies shellfish derived Allergy (Verified 10/12/18 12:32) ANAPHYLAXIS red 40 Allergy (Uncoded 10/12/18 12:32) ANAPHYLAXIS iv contrast Adverse Reaction (Uncoded 10/12/18 12:32) SHORTNESS OF BREATH Home Medications: Home Meds Medication Instructions Recorded Confirmed Budesonide/Formoterol Fumarate 1 aer IH DAILY 11/13/18 11/13/18 [Symbicort] Fluticasone Nasal [Flonase] 1 spr NS DAILY 11/13/18 11/13/18 Montelukast [Singulair] 10 mg PO DAILY 11/13/18 11/13/18 Polyethylene Glycol 8000 1 pow NA DAILY 11/13/18 11/13/18 Promethazine DM [Phenergan DM 5 ml PO TID 11/13/18 11/13/18 Syrup] Promethazine HCl/Codeine 5 ml PO HS 11/13/18 11/13/18 [Prometh-Codein 6.25-10 mg/5 ml] Review of Systems - Physician Review All systems were reviewed & negative as marked: Yes - Review of Systems Constitutional: Normal. absent: Fevers Eyes: Normal ENT: Rhinorrhea Respiratory: SOB, Cough Cardiovascular: Normal. absent: Chest Pain Gastrointestinal: Normal. absent: Abdominal Pain, Diarrhea, Nausea, Vomiting Genitourinary Female: Normal. absent: Dysuria, Frequency, Hematuria, Urine Output Changes Musculoskeletal: Normal. absent: Back Pain, Neck Pain Skin: Normal. absent: Rash Neurological: Normal. absent: Headache, Dizziness Endocrine: Normal Hemo/Lymphatic: Normal Psychiatric: Normal Physical Exam Vital Signs Reviewed: Yes Temperature: Afebrile Blood Pressure: Normal Pulse: Regular Respiratory Rate: Normal Appearance: Positive for: Uncomfortable, Other (Speaking in short sentences) Pain Distress: Mild Mental Status: Positive for: Alert and Oriented X 3 - Systems Exam Head: Present: Atraumatic, Normocephalic Pupils: Present: PERRL Extroacular Muscles: Present: EOMI Conjunctiva: Present: Normal Mouth: Present: Moist Mucous Membranes Neck: Present: Normal Range of Motion Respiratory/Chest: Present: Respiratory Distress, Wheezes (Wheezing bilaterally), Decreased Breath Sounds (Decreased breath sound bilaterally) Cardiovascular: Present: Regular Rate and Rhythm, Normal S1, S2. No: Murmurs Abdomen: No: Tenderness, Distention, Peritoneal Signs Back: Present: Normal Inspection Upper Extremity: Present: Normal Inspection. No: Cyanosis, Edema Lower Extremity: Present: Normal Inspection. No: Edema Neurological: Present: GCS=15, CN II-XII Intact, Speech Normal Skin: Present: Warm, Dry, Normal Color. No: Rashes Psychiatric: Present: Alert, Oriented x 3, Normal Insight, Normal Concentration Medical Decision Making ED Course and Treatment: 11/15/18 08:37 Impression: 33 year old female brought in for respiratory distress. Differential Diagnosis included but are not limited to: asthma exacerbation Plan: -- EKG -- Chest X-ray -- Rapid influenza -- Labs, cardiac enzymes, VBG, -- Xoponex -- Reassess and disposition Prior Visits: Notes and results from previous visits were reviewed. Progress Notes: Pt seen on arrival to Emergency department and immediately placed on BiPAP. 11/15/18 08:53 Reviewed EKG, sinus tachycardia at [address] bpm[address] Non-specific ST/T wave changes. Unchanged from previous EKG on 10/12/2018. 11/15/18 9:[address] Tolliver, [facility], who is aware and agrees with plan. Accepts pt in to his service and requests admission to [facility] for asthma exacerbation. 11/15/18 10:15 Patient appears comfortable and in no acute respiratory distress. She is feeling much better. BiPAP discontinued. Oxy saturation 100% on Room Air. Patient is coughing intermittent which causing some tachycardia. Dr. Tolliver was aware of tachycardia history. She has had cardiology evaluation for this on her last admission which was due to her bronchospasm. - Critical Care Critical Care Minutes: 30 minutes - Lab Interpretations I have reviewed the lab results: Yes - RAD Interpretation Manufacturing Laborer: Radiologist - EKG Interpretation Interpreted by ED Physician: Yes Type: 12 lead EKG - Scribe Statement The provider has reviewed the documentation as recorded by the Grazyna Saul Provider Scribe Attestation: All medical record entries made by the Scribe were at my direction and personally dictated by me. I have reviewed the chart and agree that the record accurately reflects my personal performance of the history, physical exam, medical decision making, and the department course for this patient. I have also personally directed, reviewed, and agree with the discharge instructions and disposition. Disposition/Present on Arrival - Present on Arrival Any Indicators Present on Arrival: No History of DVT/PE: No History of Uncontrolled Diabetes: No Urinary Catheter: No History Surgical Site Infection Following: None - Disposition Have Diagnosis and Disposition been Completed?: Yes Diagnosis: Asthma exacerbation, Bronchospasm Disposition: HOSPITALIZED Disposition Time: 10:00 Patient Plan: Admission Condition: GUARDED
[2018-11-15] MEDS ORDERED: Levalbuterol 1.25 MG/3 ML Inhal Soln UD ONE (08:38)
[2018-11-15 08:54] LABS: BASO # 0.01 K/mm3 (0.0-2.0); BASO % 0.1 % (0.0-3.0); EOS # 0.2 (0.0-0.7); EOS % 1.3 % (1.5-5.0); GRAN # 7.29 (1.4-6.5); GRAN % 56.8 % (50.0-68.0); HEMOGLOBIN 12.7 g/dL (12.0-16.0); LYMPH # 4.7 (1.2-3.4); LYMPH % 36.6 % (22.0-35.0); MEAN CORPUSCULAR HEMOGLOBIN 26.6 pg (25.0-35.0); MEAN CORPUSCULAR HGB CONC 32.5 g/dl (31.0-37.0); MONO # 0.7 (0.1-0.6); MONO % 5.2 % (1.0-6.0); RBC 4.77 10^6/uL (3.5-6.1); RED CELL DISTRIBUTION WIDTH 14.1 % (11.5-14.5); VENOUS BLOOD GAS BASE EXCESS -0.4 mmol/L (0.0-2.0); VENOUS BLOOD GAS PO2 276 mm/Hg (30-55); VENOUS BLOOD PH 7.36 (7.32-7.43); WHITE BLOOD COUNT 12.8 10^3/uL (4.5-11.0)
[2018-11-15 09:16] LABS: TROPONIN I < 0.01 ng/mL
[2018-11-15 09:23] LABS: BLOOD UREA NITROGEN 8 mg/dL (7-21); GFR NON-AFRICAN AMERICAN > 60
[2018-11-15] MEDS ORDERED: Levalbuterol 1.25 MG/3 ML Inhal Soln UD IH SCH (09:30)
--- NOTE | 2018-11-15 10:46 | RAD ---
Date of service: 11/15/2018 HISTORY: shortness of breathe COMPARISON: 10/15/2018 FINDINGS: LUNGS: No active pulmonary disease. PLEURA: No significant pleural effusion identified, no pneumothorax apparent. CARDIOVASCULAR: No aortic atherosclerotic calcification present. Normal cardiac size. No pulmonary vascular congestion. OSSEOUS STRUCTURES: No significant abnormalities. VISUALIZED UPPER ABDOMEN: Normal. OTHER FINDINGS: None. IMPRESSION: No active disease.
[2018-11-15] MEDS: MethylPREDNISolone 40 mg Vial IVP SCH ×2 (10:47→19:48)
[2018-11-15] MEDS: Fluticasone Nasal 50 mcg/Spray NS SCH (10:52)
[2018-11-15] MEDS: Promethazine DM 6.25 mg-15 mg/5 ml Syrup PO SCH ×3 (10:52→19:48)
--- NOTE | 2018-11-15 12:16 | HP ---
DATE OF EXAM: 11/15/2018 HISTORY OF PRESENT ILLNESS: I know Rani very well. She was in the office yesterday. She was coughing a little bit after she was breathing quite well for over the night. She got worse, very bad severe wheezing, coughing, short of breath. She was brought in almost intubated. She is on BiPAP right now. She is a 33-year-old female who I know very well, comes in with acute shortness of breath almost intubated on BiPAP and gave Solu-Medrol 125 in the emergency room with past medical history of asthma, hypertension, hypothyroidism, migraines, osteoarthritis, obesity, worsening shortness of breath, multiple inhalations, tachycardic and inhalation therapy, hypertension, asthma, migraines, wears glasses, hypothyroidism, arthritis. She has chronic constipation, obesity, reflux, anxiety, depression. She had right shoulder arthroscopy, history of , tubal ligation, ovarian cystectomy, she has had nauseousness from anesthesia. FAMILY HISTORY: Unknown family history. SOCIAL HISTORY: Former smoker. She quit last year. Occasional alcohol. No drugs. ALLERGIES TO SHELLFISH, AND IV CONTRAST. MEDICATIONS: She is on Symbicort, Flonase, Singulair, MiraLax, promethazine. REVIEW OF SYSTEMS: No fevers. No vision or hearing changes. No sore throat. There is a shortness of breath. There is a cough There is a No chest pain. No palpitations. No nausea, vomiting, constipation, diarrhea. No problems urinating. No back pain. No rash. No headache or dizziness. She is not anxious. PHYSICAL EXAMINATION: VITAL SIGNS: She has a 98.6 temp, 144 pulse, 143/86 blood pressure, 31 respiratory rate, 100% O2 sat on BiPAP. HEENT: Head is atraumatic, normocephalic. Throat is dry. NECK: Supple. HEART: Regular rate and normal S1, S2. LUNGS: Decreased breath sounds bilaterally. Wheezing bilaterally. Decreased breath sounds. Congestion bilaterally, changes with cough. ABDOMEN: Soft, nontender. Positive bowel sounds. Obese, nontender. No guarding, rebound or CVA tenderness. EXTREMITIES: No edema. GCS is 15. NEUROLOGIC: Cranial nerves II-XII grossly intact. Speech is normal. Alert and oriented x3. SKIN: Warm and dry. No apparent rashes. LYMPH: Thyroid midline. No palpable appreciable lymphadenopathy. LABORATORY DATA: She had multiple tests done. White count is 12.8, hemoglobin 12.7, hematocrit 39.1, platelets are 395. She has 7.36 pH, 143. Lactate was high at 2.6. She has 140 sodium, potassium 3.6, BUN 8, creatinine is 0.6, GFR is greater than 60, sugar is 142, calcium is 9, magnesium 2.5. Lactate dehydrogenase is 423. Troponin I is less than 0.01. ASSESSMENT: She is here with acute asthma, chronic obstructive pulmonary disease picture. She has tachycardia. No hypertension. We will put her in, give her Solu-Medrol 40 IV every 8 hours Nebulizer treatments, Pulmonary, Cardio evaluation. She is currently on BiPAP. Kraig Tolliver DO MTDFior
[2018-11-15 12:44] LABS: VENOUS BLOOD GAS BASE EXCESS -0.2 mmol/L (0.0-2.0); VENOUS BLOOD GAS PO2 93 mm/Hg (30-55); VENOUS BLOOD PH 7.42 (7.32-7.43)
--- NOTE | 2018-11-15 13:18 | CARD ---
APPROVED REPORT Date of service: 11/15/2018 EKG Measurement Heart [id number] <Conclusion> Sinus tachycardia Nonspecific ST-T wave abnormality Borderline ECG
[2018-11-15] MEDS: Levalbuterol 1.25 MG/3 ML Inhal Soln UD IH SCH ×2 (13:41→23:12)
[2018-11-15] MEDS ORDERED: Albuterol-Ipratrop 3 mg / 0.5 (3 ml) UD IH PRN (15:33)
--- NOTE | 2018-11-15 16:08 | CON ---
DATE: 11/15/2018 PULMONARY CONSULTATION NOTE REFERRING PHYSICIAN: Kraig Tolliver DO REASON FOR CONSULTATION: Cough, shortness of breath and asthma. HISTORY OF PRESENT ILLNESS: This is a 33-year-old female with past medical history significant for asthma, hypertension, hypothyroidism, chronic migraines, osteoarthritis, carpal tunnel syndrome, endometriosis, gastroesophageal reflux disease, anxiety, depression and chronic constipation. The patient presented to emergency room in respiratory distress, reports having progressively worsening shortness of breath and wheezing at home with cough, congestion and rhinorrhea. The patient used nebulizer treatments and inhaler at home which provided no relief. The patient reports that she has been ill with similar symptoms since her last discharge from the hospital on 10/16/2018. Today the patient reports having persistent coughing which tends to trigger her shortness of breath. She has nasal congestion post nasal drip, heartburn, cough is sometimes productive. The patient does report daytime fatigue, tired. Reports snoring, reports find it difficult to stay asleep and to go to asleep at night. PAST MEDICAL HISTORY: As per history of present illness. FAMILY HISTORY: No cardiopulmonary disease reported. SOCIAL HISTORY: Former smoker, quit in March 2018, used to smoke half a pack per day. Reports social drinking. No illicit drug use. ALLERGIES: SHELLFISH AND IV CONTRAST. MEDICATIONS: Flonase 1 spray each nostril daily, Xopenex 1.25 mg inhalation every 6 hours, Cozaar 50 mg daily, Solu-Medrol 40 mg every 8 hours, Singulair 10 mg daily and Phenergan DM 5 mL p.o. 3 times a day. REVIEW OF SYSTEMS: Persistent coughing which triggers shortness of breath, sometimes cough is productive of sputum. Reports heart burn and nasal congestion post nasal drip. No headache, chest pain, abdominal pain, nausea, vomiting, diarrhea, constipation, leg pain or leg swelling reported. OBJECTIVE GENERAL: No acute distress. VITAL SIGNS: Blood pressure 128/68, pulse 119, temperature 97.8 and oxygen saturation 98% on room air. HEENT: Moist mucous membranes. Mallampati score of 4. Crowded airway. Tender maxillary sinuses. NECK: Supple. No JVD. Short and thick. CARDIOVASCULAR: S1 and S2 audible and tachycardic. LUNGS: Rhonchi and wheezing bilaterally. Decreased breath sounds. ABDOMEN: Obese, soft and nontender. No distension. No organomegaly. EXTREMITIES: No bilateral lower extremity edema. NEUROLOGIC: Awake, alert and verbal. Follows commands. LABORATORY DATA: Reviewed. WBC 12.8, RBC 4.77, hemoglobin 12.7, hematocrit 39.1 and platelets 395. PO2 of 93, pH 7.42, PCO2 of 37 and HCO3 of 24. Sodium 140, potassium 3.6, chloride 104, carbon dioxide 27, anion gap 13, BUN 8, creatinine 0.6, GFR is greater than 60, random glucose 142, calcium 9, magnesium 2.5, lactate dehydrogenase 423, total creatine kinase 123 and troponin less than 0.01. Influenza type A and B negative. Chest x-ray shows no active disease. Electrocardiogram shows sinus tachycardia. IMPRESSION AND PLAN: Asthma exacerbation, sinusitis, gastroesophageal reflux disease, hypertension, hypothyroidism, osteoarthritis. We will get echocardiogram to rule out pulmonary hypertension. Continue leukotriene inhibitors. We will add Lyrica 25 mg twice a day and Tessalon Perles for cough. Fall precaution, aspiration precaution. We will add nasal saline for nasal congestion. We will add Protonix 40mg BID for now for gastric prophylaxis. We will add Lovenox for deep venous thrombosis prophylaxis. We will add Augmentin 875 mg for sinusitis. We will order urine test. Continue inhaled bronchodilators. We will add antihistamine and Pulmicort. Continue steroids. Continue BiPAP use at bedtime and as needed. The patient will need full pulmonary function test and sleep study as outpatient. This patient was seen and examined with Dr. El. Discussed assessment and plan as described above. Thank you for this consult and we will follow with you. Shun Prudence, RETAIL DELIVERY DRIVER Skyler El MD [facility]
--- NOTE | 2018-11-15 16:37 | CON ---
DATE: 11/15/2018 CARDIOLOGY CONSULTATION HISTORY: The patient is a 33-year woman with a history of asthma, who presents with recurrent asthma attack after upper respiratory infection. The patient has been in the hospital multiple times. Her past medical history also includes hypertension and hypothyroidism. She underwent a cardiac workup several days ago, which showed normal LV function with an EF of 61% with no ischemia noted on nuclear stress test. She denies angina. SOCIAL HISTORY: She denies smoking. REVIEW OF SYSTEMS: Review of systems is dominated by rhinitis and dyspnea. PHYSICAL EXAMINATION: GENERAL: The patient is in no acute distress. VITAL SIGNS: Blood pressure is 128/68, heart rate is sinus tachycardia at 100 to-110. NECK: Negative JVD. LUNGS: Bilateral rhonchi with minimal expiratory wheezing. HEART: Reveals S1, S2. EXTREMITIES: Without edema. LABORATORY DATA: EKG is sinus tachycardia with nonspecific ST flattening. Hemoglobin is 12.7, white count is 12.8. BUN and creatinine unremarkable. The glucose is 142. IMPRESSION: 1. Dyspnea. 2. Bronchospasm. 3. Upper respiratory infection. 4. Hypothyroidism. 5. Obesity. 6. History of hypertension. 7. Normal LV function with normal stress test last week. Given these findings, her treatment needs to be directed at her bronchospasm. No further cardiac workup is necessary at this time. Frederic Allen MD
[2018-11-15] MEDS: Pantoprazole 40 mg EC Tab PO SCH (19:49)
[2018-11-15] MEDS ORDERED: Pantoprazole 40 mg EC Tab PO SCH (22:00)
[2018-11-15] MEDS: Amoxicillin-Clav 875-125 mg Tab PO SCH (22:05)
[2018-11-15] MEDS: Budesonide 0.5 mg/2 ml Inhal Susp UD IH SCH (23:11)
[2018-11-16] MEDS: Levalbuterol 1.25 MG/3 ML Inhal Soln UD IH SCH ×4 (02:58→19:36)
[2018-11-16] MEDS: MethylPREDNISolone 40 mg Vial IVP SCH ×4 (03:46→18:43)
[2018-11-16] MEDS ORDERED: MethylPREDNISolone 40 mg Vial IVP SCH (03:50)
[2018-11-16 07:10] LABS: ALB/GLOB RATIO 1.2 (1.1-1.8); ALBUMIN 4.1 g/dL (3.0-4.8); ALT/SGPT 26 U/L (7-56); AST/SGOT 31 U/L (14-36); BLOOD UREA NITROGEN 8 mg/dL (7-21); CALCIUM 9.5 mg/dL (8.4-10.5); GFR NON-AFRICAN AMERICAN > 60
[2018-11-16 07:11] LABS: HEMOGLOBIN 12.2 g/dL (12.0-16.0); MEAN CELL VOLUME 81.6 fl (80.0-105.0); MEAN CORPUSCULAR HEMOGLOBIN 25.8 pg (25.0-35.0); MEAN CORPUSCULAR HGB CONC 31.7 g/dl (31.0-37.0); MEAN PLATELET VOLUME 9.1 fl (7.0-11.0); RBC 4.72 10^6/uL (3.5-6.1); RED CELL DISTRIBUTION WIDTH 14.4 % (11.5-14.5); WHITE BLOOD COUNT 12.9 10^3/uL (4.5-11.0)
[2018-11-16] MEDS: Budesonide 0.5 mg/2 ml Inhal Susp UD IH SCH ×2 (08:22→19:37)
--- NOTE | 2018-11-16 09:53 | PN ---
DATE: 11/16/2018 SUBJECTIVE: She is here for acute asthmatic bronchitis with coughing unrelenting wheezing, shortness of breath, failed outpatient treatment. MEDICATIONS: She is currently on Augmentin; Claritin; Cozaar; DuoNebs; Flonase; Lovenox; Lyrica; [place] spray; Phenergan; Protonix; Pulmicort; Singulair; Solu-Medrol at 40, I will drop it down to 30 IV every 8 hours; Tessalon Perles, and Xopenex. OBJECTIVE: VITAL SIGNS: She has a 98 temperature, 76 pulse, 101/55 blood pressure, 18 respiratory rate, 97% O2 sat. HEENT: Head is atraumatic, normocephalic. HEART: Regular rate. LUNGS: Decreased breath sounds. Occasional wheeze, chronic coughing, loud barking coughing, it definitely is not relenting right now. ABDOMEN: Soft. EXTREMITIES: No edema. LABORATORY DATA: White count 12.9, hemoglobin 12.2, hematocrit 38.5, platelets . Sodium 138, potassium 4.1, BUN 8, creatinine 0.5, GFR is greater than 60, sugar is 143, calcium is 9.5. Total bili is 0.2, AST is 31, ALT is 26, alk phos 66. Troponin I is less than 0.01, total protein 7.7. IMPRESSION AND PLAN: She was seen by Cardiology and Pulmonology. We will continue with our treatment, I drop to the 30 Solu-Medrol. Get her out of bed to chair. I am hoping that she will improve maybe tomorrow or the next day with a chance to getting her out. She is on bilevel positive airway pressure and oxygen. I asked her to get out of bed to chair and eat the food. The patient has acute shortness of breath. Kraig Tolliver DO MTDD
[2018-11-16] MEDS ORDERED: Enoxaparin 40 mg Syringe SC SCH (10:00)
[2018-11-16] MEDS: Pantoprazole 40 mg EC Tab PO SCH ×2 (10:12→18:43)
--- NOTE | 2018-11-16 10:12 | CP.PCM.CON ---
<Jaxon Vick - Last Filed: 11/16/18 12:46> History of Present Illness - History of Present Illness History of Present Illness: 33 year old female with past medical history of asthma, HTN, hypothyroidism, and osteoarthritis presents to the hospital for an acute worsening of shortness of breath. Patient states she has been intermittently on oral steroids for her asthma over the past 4 months. Patient states she has had a chronic cough which causes her to become short of breath. Cough is dry and nonproductive. Patient states she is compliant with her home asthma regimen. Patient denies chest pain, nausea, vomiting, diarrhea, fever, chills, recent sick contacts, travel. Medical Hx: asthma, HTN, hypothyroidism, and osteoarthritis Family Hx: Denies Social Hx: Former smoker, social alcohol use, denies illicit drug use Allergies: Multiple environmental allergies, Shellfish Medications: Reviewed, as per MAR Review of Systems - Review of Systems Review of Systems: 12 point ROS as per HPI, otherwise negative Past Patient History - Infectious Disease Hx of Infectious Diseases: None - Tetanus Immunizations Tetanus Immunization: Unknown - Past Medical History & Family History Past Medical History?: Yes - Past Social History Smoking Status: Former Smoker - CARDIAC Hx Angina: No Hx Cardia Arrhythmia: Yes Hx Circulatory Problems: No Hx Congestive Heart Failure: No Hx Heart Murmur: No Hx Heart Transplant: No Hx Hypercholesterolemia: No Hx Hypertension: No Hx Internal Defibrillator: No Hx Mitral Valve Prolapse: No Hx Pacemaker: No Hx Peripheral Edema: No Hx Peripheral Vascular Disease: No - PULMONARY Hx Asthma: Yes - NEUROLOGICAL Hx Neurological Disorder: Yes Hx Migraine: Yes - HEENT Hx HEENT Problems: Yes (eyeglasses) - RENAL Hx Chronic Kidney Disease: No - ENDOCRINE/METABOLIC Hx Hyperthyroidism: Yes - HEMATOLOGICAL/ONCOLOGICAL Hx Blood Disorders: No - INTEGUMENTARY Hx Dermatological Problems: No - MUSCULOSKELETAL/RHEUMATOLOGICAL Hx Falls: No - GASTROINTESTINAL Hx Gastrointestinal Disorders: Yes (obese, chronic constipation) Hx Gastroesophageal Reflux: Yes - GENITOURINARY/GYNECOLOGICAL Hx Genitourinary Disorders: No Hx Urinary Tract Infection: (pt denies) - PSYCHIATRIC Hx Substance Use: No - SURGICAL HISTORY Hx Cardiac Catheterization: No Hx Coronary Stent: No - ANESTHESIA Hx Anesthesia: Yes Hx Anesthesia Reactions: Yes (NAUSEA) Hx Malignant Hyperthermia: No Meds Allergies/Adverse Reactions: Allergies Allergy/AdvReac Type Severity Reaction Status Date / Time shellfish derived Allergy ANAPHYLAXIS Verified 12/13/18 12:32 red 40 Allergy ANAPHYLAXIS Uncoded 10/12/18 12:32 iv contrast AdvReac SHORTNESS Uncoded 10/12/18 12:32 OF BREATH - Medications Medications: Current Medications Albuterol/Ipratropium (Duoneb 3 Mg/0.5 Mg (3 Ml) Ud) 3 ml IH [id number] PRN PRN Reason: Shortness of Breath Amoxicillin/Clavulanate Potassium (Augmentin 875 Mg-125 Mg Tab) 1 tab PO Q12 [facility]; Protocol Last Admin: 11/15/18 22:05 Dose: 1 tab Benzonatate (Tessalon Perles) 100 mg PO TID [facility] Last Admin: 11/15/18 19:49 Dose: 100 mg Budesonide (Pulmicort Respules) 0.5 mg IH [id number] [facility] Last Admin: 11/16/18 08:22 Dose: 0.5 mg Enoxaparin Sodium (Lovenox) 40 mg SC DAILY [facility]; Protocol Fluticasone Propionate (Flonase) 1 actuation NS DAILY [facility] Last Admin: 11/15/18 10:52 Dose: 1 spr Levalbuterol HCl (Xopenex) 1.25 mg IH [id number] [facility] Last Admin: 11/16/18 08:22 Dose: 1.25 mg Loratadine (Claritin) 10 mg PO DAILY [facility] Losartan Potassium (Cozaar) 50 mg PO DAILY [facility] Last Admin: 11/15/18 10:38 Dose: 50 mg Methylprednisolone (Solu-Medrol) 30 mg IVP Q8 [facility] Montelukast Sodium (Singulair) 10 mg PO DAILY [facility] Last Admin: 11/15/18 10:43 Dose: 10 mg Pantoprazole Sodium (Protonix Ec Tab) 40 mg PO BID [facility] Last Admin: 11/15/18 19:49 Dose: 40 mg Pregabalin (Lyrica) 25 mg PO BID [facility] Last Admin: 11/16/18 03:00 Dose: Not Given Promethazine HCl/Dextromethorphan (Phenergan Dm Syrup) 5 ml PO TID [facility] Last Admin: 11/15/18 19:48 Dose: 5 ml Sodium Chloride ([place] Nasal [place]) 0 ml NS Q4H PRN PRN Reason: Nasal congestion Physical Exam - Constitutional Appears: Non-toxic, No Acute Distress - Head Exam Head Exam: ATRAUMATIC, NORMAL INSPECTION, NORMOCEPHALIC - Eye Exam Eye Exam: EOMI - ENT Exam ENT Exam: Mucous Membranes Moist - Respiratory Exam Respiratory Exam: Decreased Breath Sounds, Wheezes, NORMAL BREATHING PATTERN. absent: Rales, Rhonchi - Cardiovascular Exam Cardiovascular Exam: Tachycardia, +S1, +S2 - GI/Abdominal Exam GI & Abdominal Exam: Normal Bowel Sounds, Soft. absent: Tenderness - Extremities Exam Extremities exam: Positive for: normal inspection. Negative for: pedal edema - Neurological Exam Neurological exam: Alert, CN II-XII Intact, Oriented x3 - Psychiatric Exam Psychiatric exam: Normal Affect, Normal Mood - Skin Skin Exam: Intact, Normal Color, Warm Results - Vital Signs Recent Vital Signs: Last Vital Signs Temp 98 F 11/16/18 06:00 Pulse 76 11/16/18 06:00 Resp 18 11/16/18 06:00 BP 101/55 L 11/16/18 06:00 Pulse Ox 97 11/16/18 06:00 - Labs Result Diagrams: 11/16/18 06:15 11/16/18 06:15 Labs: Laboratory Results - last 24 hr 11/15/18 11/16/18 11/16/18 12:30 06:15 06:15 WBC 12.9 H RBC 4.72 Hgb 12.2 Hct 38.5 MCV 81.6 MCH 25.8 MCHC 31.7 RDW 14.4 Plt Count 417 MPV 9.1 pO2 93 H VBG pH 7.42 VBG pCO2 37.0 L VBG HCO3 24.0 VBG Total CO2 25.1 VBG O2 Sat (Calc) 99.8 H VBG Base Excess -0.2 L VBG Potassium 3.9 Sodium 137.0 138 Chloride 103.0 104 Glucose 129 H Lactate 3.5 H FiO2 21.0 Crit Value Called To Raeann yoon Crit Value Called By Ab Blood Gas Notified Time 1245 Potassium 4.1 Carbon Dioxide 28 Anion Gap 11 BUN 8 Creatinine 0.5 L Est GFR ( Amer) > 60 Est GFR (Non-Af Amer) > 60 Random Glucose 143 H Calcium 9.5 Total Bilirubin 0.2 AST 31 ALT 26 Alkaline Phosphatase 66 Total Protein 7.7 Albumin 4.1 Globulin 3.5 Albumin/Globulin Ratio 1.2 Venous Blood Potassium 3.9 Urine HCG, Qual 11/16/18 07:00 WBC RBC Hgb Hct MCV MCH MCHC RDW Plt Count MPV pO2 VBG pH VBG pCO2 VBG HCO3 VBG Total CO2 VBG O2 Sat (Calc) VBG Base Excess VBG Potassium Sodium Chloride Glucose Lactate FiO2 Crit Value Called To Crit Value Called By Blood Gas Notified Time Potassium Carbon Dioxide Anion Gap BUN Creatinine Est GFR ( Amer) Est GFR (Non-Af Amer) Random Glucose Calcium Total Bilirubin AST ALT Alkaline Phosphatase Total Protein Albumin Globulin Albumin/Globulin Ratio Venous Blood Potassium Urine HCG, Qual Negative Assessment & Plan - Assessment and Plan (Free Text) Plan: Acute Bronchitis Asthma exacerbation Hx of HTN Hx of hypothyroidism Hx of osteoarthritis Hx of obesity Plan: Continue Augmentin, will add Azithromycin Influenza negative Will obtain HIV Continue to monitor [place], PGY-3 <Jimbo Best - Last Filed: 11/16/18 17:14> Meds - Medications Medications: Current Medications Albuterol/Ipratropium (Duoneb 3 Mg/0.5 Mg (3 Ml) Ud) 3 ml IH [id number] PRN PRN Reason: Shortness of Breath Amoxicillin/Clavulanate Potassium (Augmentin 875 Mg-125 Mg Tab) 1 tab PO Q12 [facility]; Protocol Last Admin: 11/16/18 10:13 Dose: 1 tab Benzonatate (Tessalon Perles) 100 mg PO TID [facility] Last Admin: 11/16/18 15:12 Dose: 100 mg Budesonide (Pulmicort Respules) 0.5 mg IH [id number] [facility] Last Admin: 11/16/18 08:22 Dose: 0.5 mg Fluticasone Propionate (Flonase) 1 actuation NS DAILY [facility] Last Admin: 11/16/18 10:15 Dose: 1 spr Azithromycin 250 mg/ Sodium (Chloride) 250 mls @ 167 mls/hr IVPB DAILY [facility]; Protocol Levalbuterol HCl (Xopenex) 1.25 mg IH [id number] [facility] Last Admin: 11/16/18 14:40 Dose: 1.25 mg Loratadine (Claritin) 10 mg PO DAILY [facility] Last Admin: 11/16/18 10:12 Dose: Not Given Losartan Potassium (Cozaar) 50 mg PO DAILY [facility] Last Admin: 11/16/18 10:13 Dose: 50 mg Methylprednisolone (Solu-Medrol) 30 mg IVP Q8 [facility] Last Admin: 11/16/18 14:00 Dose: Not Given Montelukast Sodium (Singulair) 10 mg PO DAILY [facility] Last Admin: 11/16/18 10:12 Dose: 10 mg Pantoprazole Sodium (Protonix Ec Tab) 40 mg PO BID [facility] Last Admin: 11/16/18 10:12 Dose: 40 mg Pregabalin (Lyrica) 25 mg PO BID [facility] Last Admin: 11/16/18 10:14 Dose: Not Given Promethazine HCl/Dextromethorphan (Phenergan Dm Syrup) 5 ml PO TID [facility] Last Admin: 11/16/18 15:12 Dose: 5 ml Sodium Chloride ([place] Nasal [place]) 0 ml NS Q4H PRN PRN Reason: Nasal congestion Results - Vital Signs Recent Vital Signs: Last Vital Signs Temp 98.2 F 11/16/18 14:00 Pulse 116 H 11/16/18 14:00 Resp 20 11/16/18 14:00 BP 173/93 H 11/16/18 14:00 Pulse Ox 99 11/16/18 14:00 - Labs Result Diagrams: 11/16/18 06:15 11/16/18 06:15 Labs: Laboratory Results - last 24 hr 11/16/18 11/16/18 11/16/18 06:15 06:15 07:00 WBC 12.9 H RBC 4.72 Hgb 12.2 Hct 38.5 MCV 81.6 MCH 25.8 MCHC 31.7 RDW 14.4 Plt Count 417 MPV 9.1 Sodium 138 Potassium 4.1 Chloride 104 Carbon Dioxide 28 Anion Gap 11 BUN 8 Creatinine 0.5 L Est GFR ( Amer) > 60 Est GFR (Non-Af Amer) > 60 Random Glucose 143 H Calcium 9.5 Total Bilirubin 0.2 AST 31 ALT 26 Alkaline Phosphatase 66 Total Protein 7.7 Albumin 4.1 Globulin 3.5 Albumin/Globulin Ratio 1.2 Urine HCG, Qual Negative Assessment & Plan - Assessment and Plan (Free Text) Plan: Infectious diseases Attending Physician Attestation Patient seen and examined, discussed with regional medical director. I have reviewed the patient's history of present illness, past medical, social, personal and family histories, pertinent physical exam findings, course so far in this hospital admission, pertinent laboratory and imaging results. I agree with the above findings, assessment and plan. In addition, will add Zithromax for probable acute bronchitis in this patient with asthma exacerbation. Check HIV test. Patient has been started on Augmentin by Pulmonary for sinusitis.
[2018-11-16] MEDS: Amoxicillin-Clav 875-125 mg Tab PO SCH ×2 (10:13→21:17)
[2018-11-16] MEDS: Fluticasone Nasal 50 mcg/Spray NS SCH (10:15)
[2018-11-16] MEDS: Promethazine DM 6.25 mg-15 mg/5 ml Syrup PO SCH ×3 (10:17→18:43)
[2018-11-16] MEDS ORDERED: Azithromycin 500MG/NS 250ml 500 MG/250 ML BAG IVPB STA (12:49)
--- NOTE | 2018-11-16 14:39 | PN ---
DATE: 11/16/2018 PULMONARY PROGRESS NOTE REFERRING PHYSICIAN: Dr. Adams. SUBJECTIVE: The patient is sitting up in bed. No acute distress. No overnight events reported. The patient reports using BIPAP machine last night and breathing well after using BIPAP machine. The patient reports that she is still coughing which sometimes leads to shortness of breath. No headache, rhinitis, chest pain, abdominal pain, nausea, vomiting, diarrhea, leg pain or leg swelling reported. OBJECTIVE: GENERAL: No acute distress. VITAL SIGNS: Blood pressure 101/55, pulse 76, temperature 98 and oxygen saturation 97% on room air. HEENT: Moist mucous membranes. Crowded airway. Mallampati score of 4. NECK: Supple. No JVD. Short and thick. LUNGS: Rhonchi and wheezing bilaterally. CARDIOVASCULAR: S1 and S2, audible. ABDOMEN: Obese, soft and nontender. No distension. No organomegaly. EXTREMITIES: No bilateral lower extremity edema. NEUROLOGICAL: Awake, alert and verbal. Follows commands. MEDICATIONS: Reviewed. DuoNeb 3 mL inhalation every 4 hours when necessary; Augmentin one tablet every 12 hours; Zithromax 500 mg stat dose, then 250 mg daily; Tessalon Perles 100 mg three times a day; Pulmicort 0.5 mg every 12 hours; Lovenox 40 mg subcu daily; Flonase nasal spray daily; Xopenex 1.25 mg inhalation every 6 hours; Claritin 10 mg daily; Losartan 50 mg daily; Solu-Medrol 30 mg every 8 hours; Singulair 10 mg daily; Protonix 40 mg twice a day; Lyrica 25 mg twice a day; Phenergan DM 5 mL p.o. three times a day; [place] nasal spray every 4 hours p.r.n. LABORATORY DATA: Reviewed. WBC 12.97, RBC 4.72, hemoglobin 12.2, hematocrit 38.5 and platelets 417. Sodium 138, potassium 4.1, chloride 104, carbon dioxide 28, anion gap 11, BUN 8, creatinine 0.5, GFR greater than 60, random glucose 143, calcium 9.5, total bilirubin 0.2. AST 31, ALT 26, alkaline phosphatase 66, total protein 7.7, albumin 4.1, globulin 3.5 and albumin-globulin ratio 1.2. Urine hCG negative. Echocardiogram report pending. IMPRESSION AND PLAN: Asthma excerebration, sinusitis, gastroesophageal reflux disease, hypertension, hypothyroidism, osteoarthritis, echocardiogram report pending. Continue leukotriene inhibitors. Continue Lyrica and Tessalon Perles for cough. Aspiration precaution. Fall precaution. Gastric prophylaxis. The patient refusing Lovenox for deep venous thrombosis prophylaxis. The risk of thromboembolic disease reported to the patient and the patient verbalized understanding of risk, but continues to refuse Lovenox. We will discontinue Lovenox due to the patient's refusal and add sequential compression devices to bilateral lower extremities. Continue antibiotics therapy, inhaled bronchodilators, steroids, antihistamine and Pulmicort. Continue bilevel positive airway pressure use at bedtime. Sleep apnea precaution. Head of bed elevated 45 degrees. The patient needs full pulmonary function test and sleep study as outpatient. This patient was seen and examined with Dr. El. Discussed assessment and plan as described above. Thank you for this consult and we will follow with you. Shun Bermudez APN Skyler El MD
--- NOTE | 2018-11-16 18:25 | CARD ---
APPROVED REPORT Date of service: 11/16/2018 EXAM: Two-dimensional and M-mode echocardiogram with Doppler and color Doppler. INDICATION R/O PULMONARY HYPERTENSION 2D DIMENSIONS Left Atrium (2D)4.2 (1.6-4.0cm)IVSd1.2 (0.7-1.1cm) LVDd4.0 (3.9-5.9cm)PWd1.1 (0.7-1.1cm) LVDs2.8 (2.5-4.0cm)FS (%) 29.1 % LVEF (%)56.4 (>50%) M-Mode DIMENSIONS Aortic Root2.80 (2.2-3.7cm)Aortic Cusp Exc.1.80 (1.5-2.0cm) Aortic Valve AoV Peak Eizlxjxz487.0cm/Carie Peak GR.12mmHg Mitral Valve MV E Tdsfhprs643.0cm/sMV A Hftursab813.0cm/sE/A ratio1.2 TDI E/Lateral E'0.0E/Medial E'0.0 Pulmonary Valve PV Peak Znxdxkpc943.0cm/sPV Peak Grad.4mmHg Tricuspid Valve TR Peak Mukxhngr447ch/sRAP [id number] Peak Gr.13mmHg [id number] LEFT VENTRICLE The left ventricle is normal size. There is borderline concentric left ventricular hypertrophy. The left ventricular function is normal. The left ventricular ejection fraction is within the normal range. There is normal LV segmental wall motion. RIGHT VENTRICLE The right ventricle is normal size. The right ventricular systolic function is normal. ATRIA The left atrium is mildly dilated. The right atrium size is normal. The interatrial septum is intact with no evidence for an atrial septal defect. AORTIC VALVE The aortic valve is normal in structure. No aortic regurgitation is present. There is no aortic valvular stenosis. MITRAL VALVE The mitral valve is mildly thickened. There is no mitral valve regurgitation noted. TRICUSPID VALVE The tricuspid valve is normal in structure. There is mild tricuspid regurgitation. There is no pulmonary hypertension. PULMONIC VALVE The pulmonary valve is normal in structure. GREAT VESSELS The aortic root is normal in size. The IVC is normal in size and collapses >50% with inspiration. PERICARDIAL EFFUSION There is no pleural effusion. There is no pericardial effusion. <Conclusion> Mildly dilated LA. Normal LV size and systolic function. Borderline concentric LVH. Mild TR. No pulmonary HTN.
[2018-11-16] MEDS ORDERED: POLYETHYLENE GLYCOL 3350 17 GM/Dose PACKET PO STA (22:24)
[2018-11-17] MEDS: MethylPREDNISolone 40 mg Vial IVP SCH ×3 (02:39→18:12)
[2018-11-17] MEDS: Levalbuterol 1.25 MG/3 ML Inhal Soln UD IH SCH ×4 (02:48→21:02)
[2018-11-17] MEDS: Budesonide 0.5 mg/2 ml Inhal Susp UD IH SCH ×2 (07:18→21:03)
[2018-11-17] MEDS: Fluticasone Nasal 50 mcg/Spray NS SCH (09:21)
[2018-11-17] MEDS: Pantoprazole 40 mg EC Tab PO SCH ×2 (09:22→18:39)
[2018-11-17] MEDS: Amoxicillin-Clav 875-125 mg Tab PO SCH ×2 (09:22→21:04)
[2018-11-17] MEDS: Promethazine/Cod 6.25mg-10mg/5ml Syr UD PO PRN ×3 (09:32→21:05)
[2018-11-17] MEDS ORDERED: MethylPREDNISolone 40 mg Vial IVP SCH (10:00)
--- NOTE | 2018-11-17 10:36 | PN ---
DATE: 11/17/2018 SUBJECTIVE: She is much worse today than yesterday. I decrease her Solu-Medrol yesterday and increasing back up to 40 today. MEDICATIONS: She is on Augmentin, Claritin, Cozaar, DuoNebs, Flonase, MiraLAX, [place] spray, Phenergan DM with codeine [id number] now, Protonix, Pulmicort, Singulair, I bumped up the Solu-Medrol by up to 40 IV every 8 hours lungs are much worse since she is coughing, Tessalon Perles, Tylenol, Xopenex, azithromycin. OBJECTIVE: VITAL SIGNS: She has a 98.5 temperature, 85 pulse, 138/70 blood pressure, 18 respiratory rate, 95% O2 sat. HEENT: Head is atraumatic, normocephalic. HEART: Regular rate. LUNGS: Decreased breath sounds. Congestion bilaterally, wheezes, rhonchi. Much worse. ABDOMEN: Soft. EXTREMITIES: No edema. LABORATORY DATA: She has a 12.9 white count, 12.2 hemoglobin, 38.5 hematocrit with 417 platelets. She has 138 sodium, potassium 4.1, BUN 8, creatinine 0.5, GFR is greater than 60, sugar is 143, calcium , total bili is 0.2, AST is 31, ALT is 26, alk phos 66. Troponin I is less than 0.01, total protein 7.7. IMPRESSION AND PLAN: She is being seen by Infectious Disease and Pulmonology. I am going to order a CAT scan of her chest if it was not done yet, acute bronchitis exacerbation of asthma. I want to take a look at her chest and see if I am not missing anything. We will check her labs tomorrow. Increase the Solu-Medrol. Laisha Tolliver DO MTDFoir
--- NOTE | 2018-11-17 12:43 | PN ---
DATE: 11/17/2018 PULMONARY PROGRESS NOTE REFERRING PHYSICIAN: Kraig Tolliver DO SUBJECTIVE: The patient is sitting up in bed. Reports she is still coughing, still short of breath. The patient has bene refusing Claritin and Lyrica. No headache, rhinitis, chest pain, abdominal pain, nausea, vomiting, diarrhea, leg pain or leg swelling reported. OBJECTIVE: GENERAL: No acute distress. VITAL SIGNS: Blood pressure 138/73, pulse 85, temperature 98.5 and oxygen saturation 95%. HEENT: Moist mucous membranes. Mallampati score of 4. Crowded airway. NECK: Supple. No JVD. Short and thick. LUNGS: Rhonchi bilaterally. CARDIOVASCULAR: S1 and S2, audible. ABDOMEN: Obese, soft and nontender. No distention. No organomegaly. EXTREMITIES: No bilateral lower extremity edema. NEUROLOGICAL: Awake, alert and verbal. Follows commands. MEDICATIONS: Reviewed. DuoNeb 3 mL inhalation every 4 hours p.r.n.; Augmentin one tablet every 12 hours; azithromycin 250 mg daily, Tessalon Perles 100 mg three times a day; Pulmicort 0.5 mg inhalation every 12 hours; Flonase 1 spray each nostril daily; Xopenex 1.25 mg inhalation every 6 hours; Claritin 10 mg daily; Solu-Medrol 40 mg every 8 hours; Singulair 10 mg daily; Protonix 40 mg twice a day; Lyrica 25 mg twice a day; Phenergan codeine 5 mL every 6 hours p.r.n.; [place] nasal spray every 4 hours p.r.n. LABORATORY DATA: Reviewed. No new labs. Echocardiogram shows no pulmonary hypertension, mild tricuspid regurgitation, borderline concentric LVH, normal LV size and systolic function, ejection fraction 56, RVSP 23. Chest CT report is pending. IMPRESSION AND PLAN: Asthma excerebration, sinusitis, gastroesophageal reflux disease, hypertension, hypothyroidism and osteoarthritis. Continue leukotriene inhibitors. Continue Tessalon Perles. Aspiration precaution, fall precaution and gastric prophylaxis. Sequential compression devices for deep venous thrombosis prophylaxis. The patient refusing Lovenox. Continue antibiotics therapy, inhaled bronchodilators, steroids and antihistamine. Steroids increased by primary care physician, will leave Solu-Medrol dosing to primary physician. Discussed with patient and doctor this morning, the reasons for prescribing Lyrica and Claritin, the patient agreed that she will start taking Lyrica and Claritin. Continue bilevel positive airway pressure use at bedtime. Sleep apnea precaution. Head of bed elevated 45 degrees. The patient needs full pulmonary function test and sleep study as outpatient. This patient was seen and examined with Dr. El. Discussed assessment and plan as described above. Thank you for this consult and we will follow with you. Shun Bermudez APN Skyler El MD
--- NOTE | 2018-11-17 13:08 | CT ---
Date of service: 11/17/2018 PROCEDURE: CT Chest without contrast HISTORY: cough COMPARISON: None available. TECHNIQUE: Contiguous axial images were obtained through the chest without intravenous contrast enhancement. Sagittal and coronal reconstructions were performed. Radiation dose: Total exam DLP = 747.9 mGy-cm. This CT exam was performed using one or more of the following dose reduction techniques: Automated exposure control, adjustment of the mA and/or kV according to patient size, and/or use of iterative reconstruction technique. FINDINGS: LUNGS: Clear lungs. Visualized airway clear MEDIASTINUM: Unremarkable thoracic aorta. No aneurysm. Normal sized heart. Main pulmonary artery unremarkable. No vascular congestion. No lymphadenopathy. No aortic atherosclerotic calcification. PLEURA: No pleural fluid. No pneumothorax. BONES: No fracture. No destructive lesion. UPPER ABDOMEN: Grossly unremarkable. OTHER FINDINGS: None. IMPRESSION: Unremarkable non-contrast enhanced CT of the chest.
[2018-11-17] MEDS: Azithromycin 250 MG in Sodium Chloride 0.9% 250 ML IVPB SCH (13:39)
--- NOTE | 2018-11-17 14:38 | CP.PCM.PN ---
<Jaxon Vick - Last Filed: 11/17/18 14:35> Subjective - Date & Time of Evaluation Date of Evaluation: 11/17/18 Time of Evaluation: 10:00 - Subjective Subjective: ID Progress Note Patient seen and examined. Patient complaining of cough with no improvement. Denies chest pain, nausea, vomiting, fever, chills. Objective - Vital Signs/Intake and Output Vital Signs (last 24 hours): Temp Pulse Resp BP Pulse Ox 98.5 F 85 18 138/73 95 11/17/18 06:00 11/17/18 09:23 11/17/18 06:00 11/17/18 09:23 11/17/18 06:00 Intake and Output: 11/17/18 11/17/18 06:59 18:59 Intake Total 180 Balance 180 - Medications Medications: Current Medications Albuterol/Ipratropium (Duoneb 3 Mg/0.5 Mg (3 Ml) Ud) 3 ml IH [id number] PRN PRN Reason: Shortness of Breath Amoxicillin/Clavulanate Potassium (Augmentin 875 Mg-125 Mg Tab) 1 tab PO Q12 COUNTS INCLUDE 234 BEDS AT THE [facility]; Protocol Last Admin: 11/17/18 09:22 Dose: 1 tab Benzonatate (Tessalon Perles) 100 mg PO TID COUNTS INCLUDE 234 BEDS AT THE [facility] Last Admin: 11/17/18 14:25 Dose: 100 mg Budesonide (Pulmicort Respules) 0.5 mg IH [id number] [facility] Last Admin: 11/17/18 07:18 Dose: 0.5 mg Fluticasone Propionate (Flonase) 1 actuation NS DAILY [facility]S [facility]CLUDE 234 BEDS AT THE [facility] Last Admin: 11/17/18 09:21 Dose: 1 spr Azithromycin 250 mg/ Sodium (Chloride) 250 mls @ 167 mls/hr IVPB DAILY [facility]S INCLUDE 234 BEDS AT THE [facility]; Protocol Last Admin: 11/17/18 13:39 Dose: 167 mls/hr Levalbuterol HCl (Xopenex) 1.25 mg IH [id number] COUNTS INCLUDE 234 BEDS AT THE [facility] Last Admin: 11/17/18 13:21 Dose: 1.25 mg Loratadine (Claritin) 10 mg PO DAILY COUNTS INCLUDE 234 BEDS AT THE [facility] Last Admin: 11/17/18 09:32 Dose: 10 mg Losartan Potassium (Cozaar) 50 mg PO DAILY [facility]S INCLUDE 234 BEDS AT THE [facility] Last Admin: 11/17/18 09:23 Dose: 50 mg Methylprednisolone (Solu-Medrol) 40 mg IVP Q8H COUNTS INCLUDE 234 BEDS AT THE [facility] Last Admin: 11/17/18 10:30 Dose: 40 mg Montelukast Sodium (Singulair) 10 mg PO DAILY COUNTS INCLUDE 234 BEDS AT THE [facility] Last Admin: 11/17/18 09:22 Dose: 10 mg Pantoprazole Sodium (Protonix Ec Tab) 40 mg PO BID COUNTS INCLUDE 234 BEDS AT THE [facility] Last Admin: 11/17/18 09:22 Dose: 40 mg Pregabalin (Lyrica) 25 mg PO BID COUNTS INCLUDE 234 BEDS AT THE [facility] Promethazine HCl/Codeine (Phenergan/Codeine Oral Syrup) 5 ml PO Q6H PRN PRN Reason: Cough and congestion Last Admin: 11/17/18 09:32 Dose: 5 ml Sodium Chloride ([place] Nasal [place]) 0 ml NS Q4H PRN PRN Reason: Nasal congestion Last Admin: 11/17/18 09:21 Dose: 2 spr - Labs Labs: 11/16/18 06:15 11/16/18 06:15 - Constitutional Appears: Non-toxic, No Acute Distress - Head Exam Head Exam: ATRAUMATIC, NORMAL INSPECTION, NORMOCEPHALIC - ENT Exam ENT Exam: Mucous Membranes Moist - Respiratory Exam Respiratory Exam: Decreased Breath Sounds, NORMAL BREATHING PATTERN. absent: Rales, Rhonchi, Wheezes - Cardiovascular Exam Cardiovascular Exam: RRR, +S1, +S2 - GI/Abdominal Exam GI & Abdominal Exam: Soft, Normal Bowel Sounds. absent: Tenderness - Extremities Exam Extremities Exam: Normal Inspection. absent: Pedal Edema - Neurological Exam Neurological Exam: Alert, Awake, CN II-XII Intact, Oriented x3 - Psychiatric Exam Psychiatric exam: Normal Affect, Normal Mood - Skin Skin Exam: Intact, Normal Color, Warm Assessment and Plan - Assessment and Plan (Free Text) Plan: Acute Bronchitis Asthma exacerbation Hx of HTN Hx of hypothyroidism Hx of osteoarthritis Hx of obesity Plan: Continue Augmentin and Azithromycin Influenza negative HIV Negative Chest CT negative for acute pathology Continue to monitor [place], PGY-3 <Jimbo Best - Last Filed: 11/17/18 17:05> Objective - Vital Signs/Intake and Output Vital Signs (last 24 hours): Temp Pulse Resp BP Pulse Ox 98.5 F 85 18 138/73 95 11/17/18 06:00 11/17/18 09:23 11/17/18 06:00 11/17/18 09:23 11/17/18 06:00 Intake and Output: 11/17/18 11/17/18 06:59 18:59 Intake Total 180 Balance 180 - Medications Medications: Current Medications Albuterol/Ipratropium (Duoneb 3 Mg/0.5 Mg (3 Ml) Ud) 3 ml IH [id number] PRN PRN Reason: Shortness of Breath Amoxicillin/Clavulanate Potassium (Augmentin 875 Mg-125 Mg Tab) 1 tab PO Q12 [facility]; Protocol Last Admin: 11/17/18 09:22 Dose: 1 tab Benzonatate (Tessalon Perles) 100 mg PO TID COUNTS INCLUDE 234 BEDS AT THE [facility] Last Admin: 11/17/18 14:25 Dose: 100 mg Budesonide (Pulmicort Respules) 0.5 mg IH [id number] [facility]IA[facility] Last Admin: 11/17/18 07:18 Dose: 0.5 mg Fluticasone Propionate (Flonase) 1 actuation NS DAILY COUNTS INCLUDE 234 BEDS AT THE [facility] Last Admin: 11/17/18 09:21 Dose: 1 spr Azithromycin 250 mg/ Sodium (Chloride) 250 mls @ 167 mls/hr IVPB DAILY COUNTS INCLUDE 234 BEDS AT THE [facility]; Protocol Last Admin: 11/17/18 13:39 Dose: 167 mls/hr Levalbuterol HCl (Xopenex) 1.25 mg IH [id number] ISAIAH Last Admin: 11/17/18 13:21 Dose: 1.25 mg Loratadine (Claritin) 10 mg PO DAILY COUNTS INCLUDE 234 BEDS AT THE [facility] Last Admin: 11/17/18 09:32 Dose: 10 mg Losartan Potassium (Cozaar) 50 mg PO DAILY COUNTS INCLUDE 234 BEDS AT THE [facility] Last Admin: 11/17/18 09:23 Dose: 50 mg Methylprednisolone (Solu-Medrol) 40 mg IVP Q8H [facility] Last Admin: 11/17/18 10:30 Dose: 40 mg Montelukast Sodium (Singulair) 10 mg PO DAILY COUNTS INCLUDE 234 BEDS AT THE [facility] Last Admin: 11/17/18 09:22 Dose: 10 mg Pantoprazole Sodium (Protonix Ec Tab) 40 mg PO BID COUNTS INCLUDE 234 BEDS AT THE [facility] Last Admin: 11/17/18 09:22 Dose: 40 mg Pregabalin (Lyrica) 25 mg PO BID COUNTS INCLUDE 234 BEDS AT THE [facility] Promethazine HCl/Codeine (Phenergan/Codeine Oral Syrup) 5 ml PO Q6H PRN PRN Reason: Cough and congestion Last Admin: 11/17/18 16:06 Dose: 5 ml Sodium Chloride ([place] Nasal [place]) 0 ml NS Q4H PRN PRN Reason: Nasal congestion Last Admin: 11/17/18 09:21 Dose: 2 spr - Labs Labs: 11/16/18 06:15 11/16/18 06:15 Assessment and Plan - Assessment and Plan (Free Text) Plan: Infectious diseases Attending Physician Attestation Patient seen and examined, discussed with district medical examiner. I have reviewed the patient's history of present illness, past medical, social, personal and family histories, pertinent physical exam findings, course so far in this hospital admission, pertinent laboratory and imaging results. I agree with the above f indings, assessment and plan. In addition, continue Augmentin and Zithromax for acute bronchitis and sinusitis and will continue to monitor clinically. CT chest does not show pneumonia.
[2018-11-17] MEDS: POLYETHYLENE GLYCOL 3350 17 GM/Dose PACKET PO SCH (18:39)
[2018-11-18] MEDS: MethylPREDNISolone 40 mg Vial IVP SCH ×4 (01:12→17:13)
[2018-11-18] MEDS: Levalbuterol 1.25 MG/3 ML Inhal Soln UD IH SCH ×4 (01:12→21:20)
[2018-11-18] MEDS: Budesonide 0.5 mg/2 ml Inhal Susp UD IH SCH ×2 (07:12→21:20)
[2018-11-18] MEDS: Fluticasone Nasal 50 mcg/Spray NS SCH (09:06)
[2018-11-18] MEDS: Promethazine/Cod 6.25mg-10mg/5ml Syr UD PO PRN (09:07)
[2018-11-18] MEDS: Pantoprazole 40 mg EC Tab PO SCH ×2 (09:07→17:14)
[2018-11-18] MEDS: Amoxicillin-Clav 875-125 mg Tab PO SCH ×2 (09:07→21:36)
[2018-11-18] MEDS: POLYETHYLENE GLYCOL 3350 17 GM/Dose PACKET PO SCH (09:07)
[2018-11-18] MEDS: Azithromycin 250 MG in Sodium Chloride 0.9% 250 ML IVPB SCH (09:08)
--- NOTE | 2018-11-18 12:03 | CP.PCM.PN ---
Subjective - Date & Time of Evaluation Date of Evaluation: 11/18/18 Time of Evaluation: 10:00 - Subjective Subjective: Still with cough but a little less, no SOB at rest, no fevers. Objective - Vital Signs/Intake and Output Vital Signs (last 24 hours): Temp Pulse Resp BP Pulse Ox 97.6 F 77 18 131/85 99 11/18/18 08:32 11/18/18 08:32 11/18/18 08:32 11/18/18 08:32 11/18/18 08:32 - Medications Medications: Current Medications Albuterol/Ipratropium (Duoneb 3 Mg/0.5 Mg (3 Ml) Ud) 3 ml IH [id number] PRN PRN Reason: Shortness of Breath Amoxicillin/Clavulanate Potassium (Augmentin 875 Mg-125 Mg Tab) 1 tab PO Q12 [facility]; Protocol Last Admin: 11/18/18 09:07 Dose: 1 tab Benzonatate (Tessalon Perles) 100 mg PO TID [facility] Last Admin: 11/18/18 09:07 Dose: 100 mg Budesonide (Pulmicort Respules) 0.5 mg IH [id number] ISAIA[facility] Last Admin: 11/18/18 07:12 Dose: 0.5 mg Fluticasone Propionate (Flonase) 1 actuation NS DAILY [facility] Last Admin: 11/18/18 09:06 Dose: 1 spr Azithromycin 250 mg/ Sodium (Chloride) 250 mls @ 167 mls/hr IVPB DAILY [facility]; Protocol Last Admin: 11/18/18 09:08 Dose: 167 mls/hr Levalbuterol HCl (Xopenex) 1.25 mg IH [id number] [facility] Last Admin: 11/18/18 07:12 Dose: 1.25 mg Loratadine (Claritin) 10 mg PO DAILY [facility] Last Admin: 11/18/18 09:07 Dose: 10 mg Losartan Potassium (Cozaar) 50 mg PO DAILY [facility] Last Admin: 11/18/18 09:07 Dose: 50 mg Methylprednisolone (Solu-Medrol) 40 mg IVP Q8H [facility] Last Admin: 11/18/18 09:08 Dose: 40 mg Montelukast Sodium (Singulair) 10 mg PO DAILY [facility] Last Admin: 11/18/18 09:07 Dose: 10 mg Pantoprazole Sodium (Protonix Ec Tab) 40 mg PO BID [facility] Last Admin: 11/18/18 09:07 Dose: 40 mg Polyethylene Glycol (Miralax) 17 gm PO DAILY [facility] Last Admin: 11/18/18 09:07 Dose: 17 gm Pregabalin (Lyrica) 25 mg PO BID [facility] Last Admin: 11/18/18 09:07 Dose: 25 mg Promethazine HCl/Codeine (Phenergan/Codeine Oral Syrup) 5 ml PO Q6H PRN PRN Reason: Cough and congestion Last Admin: 11/18/18 09:07 Dose: 5 ml Sodium Chloride ([place] Nasal [place]) 0 ml NS Q4H PRN PRN Reason: Nasal congestion Last Admin: 11/18/18 09:07 Dose: 1 spr - Labs Labs: 11/16/18 06:15 11/16/18 06:15 - Constitutional Appears: Chronically Ill - Head Exam Head Exam: NORMAL INSPECTION - Respiratory Exam Respiratory Exam: Decreased Breath Sounds - Cardiovascular Exam Cardiovascular Exam: +S1, +S2 - GI/Abdominal Exam GI & Abdominal Exam: Soft. absent: Tenderness Assessment and Plan - Assessment and Plan (Free Text) Plan: Assessment acute bronchitis in this patient asthma exacerbation, and sinusitis HTN hypothyroidism obesity with BMI 38 Plan continue Zithromax and Augmentin day 3 continue steroids as per Pulmonary discussed with Dr. Tolliver
--- NOTE | 2018-11-18 13:25 | PN ---
DATE: 11/18/2018 SUBJECTIVE: I saw her sitting up in bed today, eating her breakfast. She is still coughing, maybe a better than yesterday when I increased her Solu-Medrol from 30 to 40. I did try and decrease it the other day and the lungs are very congested. This morning, she looks a little bit better. She is on Augmentin, Claritin, Cozaar, DuoNeb, Flonase, liver, MiraLax, [place] spray, Phenergan with codeine, Protonix, Pulmicort, Singulair, Solu-Medrol at 40 every 8 hours, my plan is to decrease to 30 every 8 hours again and see if we get her to slowly wean off the steroids without the coughing getting worse. She is also on Tessalon Perles, Xopenex and Zithromax IV. PHYSICAL EXAMINATION: VITAL SIGNS: She has a 97.6 temperature, 77 pulse, 131/85 blood pressure, 18 respiratory rate and 99% O2 sat on 2 liters. GENERAL: She actually got a little bit of sleep last night. She more rest. HEENT: Head is atraumatic and normocephalic. She is alert, smiling. Throat is clear. NECK: Supple. HEART: Regular rate. LUNGS: Decreased breath sounds, but clear today. Yesterday, she was very congested. Today, she is clear. I hope that is a good sign. ABDOMEN: Soft and obese. EXTREMITIES: No edema. LABORATORY DATA: She has a 12.9 white count could be from the steroids, 12.2 hemoglobin, 38.5 hematocrit and 417 platelets. A 138 sodium, potassium 4.1, BUN 8, creatinine 0.5, GFR is greater than 60, sugar is 143, calcium is 9.5, magnesium is 2.5, total bili is 0.2, AST is 31, ALT is 26 and alk phos 56. Troponin I is less than 0.01. Total protein 7.7. She is not . No HIV and no flu. She is being seen by Pulmonary and Infectious Disease. She had a CAT scan of the chest, unremarkable, which is a good thing. We will decrease her Solu-Medrol to 30 every 8 hours. Hopefully, she will not decompensate again. Antibiotics as per Infectious Disease. Try and get out of bed to chair, maybe she could do a little walking and hopefully she will improve. COPD, asthma and shortness of breath. Kraig Tolliver DO MTDFior
--- NOTE | 2018-11-19 00:03 | PN ---
DATE: 11/18/2018 PULMONARY PROGRESS NOTE REFERRING PHYSICIAN: Kraig Tolliver DO SUBJECTIVE: She is lying in the bed, watching TV. Night was unremarkable. Tolerating CPAP well. Feels better. Still has sore throat, cough, and shortness of breath. No nausea. No vomiting. No diarrhea. No leg pain or leg swelling. OBJECTIVE: GENERAL: No acute distress. VITAL SIGNS: Temp is 98, heart rate is 83, respiratory rate is 18, blood pressure is 145/88, and pulse ox 97% on 2 L nasal cannula. HEENT: Moist mucous membrane. Crowded airway. Mallampati score is 4. NECK: Supple. No JVD. LUNGS: Prolonged expiratory phase. No wheezing. HEART: S1 and S2. ABDOMEN: Soft and nontender. No organomegaly. EXTREMITIES: No edema. NEUROLOGIC: Awake, alert, and follows simple commands. MEDICATIONS: She is on Augmentin 875 one tablet twice a day, Zithromax 250 mg daily, Claritin 10 mg daily, Cozaar 50 mg daily, nebulizer every 4 hours p.r.n., Flonase one spray each nostril daily, Lyrica 25 mg twice a day, MiraLax 17 g daily, nasal saline once spray each nostril every 4 hours p.r.n., Phenergan with Codeine 5 mL every 6 hours p.r.n., Protonix 40 mg twice a day, Pulmicort inhaled twice a day, Solu-Medrol 30 every 8 hours, Tessalon Perles 100 mg three times a day, Tylenol p.r.n., and Xopenex 1.25 mg every 8 hours p.r.n. LABORATORY DATA: Reviewed and noted. No new lab is available hence yesterday. CAT scan of the chest was done yesterday, which shows unremarkable. CT of the chest. IMPRESSION AND PLAN: Acute asthma exacerbation, sinusitis, gastroesophageal reflux disease, hypertension, hypothyroidism, osteoarthritis, suspected sleep apnea syndrome. Pulmonary point of view, doing okay. Continue intravenous and inhaled bronchodilators, cough suppressant, gastric prophylaxis, and deep venous thrombosis prophylaxis. Continue bilevel positive airway pressure while sleeping. Out of bed to chair. Gastroesophageal reflux disease precaution. As outpatient, needs pulmonary function tests and sleep study. Thank you and we will follow with you. Skyler El MD [facility] # [id number]
[2018-11-19] MEDS: Levalbuterol 1.25 MG/3 ML Inhal Soln UD IH SCH ×4 (03:15→21:09)
[2018-11-19] MEDS: MethylPREDNISolone 40 mg Vial IVP SCH ×3 (05:33→17:38)
[2018-11-19 08:35] LABS: HEMOGLOBIN 12.7 g/dL (12.0-16.0); MEAN CELL VOLUME 81.8 fl (80.0-105.0); MEAN CORPUSCULAR HEMOGLOBIN 26.5 pg (25.0-35.0); MEAN CORPUSCULAR HGB CONC 32.4 g/dl (31.0-37.0); MEAN PLATELET VOLUME 9.3 fl (7.0-11.0); RBC 4.79 10^6/uL (3.5-6.1); RED CELL DISTRIBUTION WIDTH 14.2 % (11.5-14.5); WHITE BLOOD COUNT 19.6 10^3/uL (4.5-11.0)
[2018-11-19 08:53] LABS: ALB/GLOB RATIO 1.2 (1.1-1.8); ALBUMIN 3.8 g/dL (3.0-4.8); ALT/SGPT 30 U/L (7-56); AST/SGOT 23 U/L (14-36); BLOOD UREA NITROGEN 14 mg/dL (7-21); CALCIUM 9.3 mg/dL (8.4-10.5); GFR NON-AFRICAN AMERICAN > 60
[2018-11-19] MEDS: Promethazine/Cod 6.25mg-10mg/5ml Syr UD PO PRN ×2 (09:07→17:07)
[2018-11-19] MEDS: POLYETHYLENE GLYCOL 3350 17 GM/Dose PACKET PO SCH (09:07)
[2018-11-19] MEDS: Fluticasone Nasal 50 mcg/Spray NS SCH (09:07)
[2018-11-19] MEDS: Amoxicillin-Clav 875-125 mg Tab PO SCH ×2 (09:07→21:12)
[2018-11-19] MEDS: Pantoprazole 40 mg EC Tab PO SCH ×2 (09:08→17:07)
[2018-11-19] MEDS: Azithromycin 250 MG in Sodium Chloride 0.9% 250 ML IVPB SCH (09:10)
[2018-11-19] MEDS: Budesonide 0.5 mg/2 ml Inhal Susp UD IH SCH ×2 (09:14→21:09)
[2018-11-19] MEDS ORDERED: MethylPREDNISolone 40 mg Vial IVP SCH (11:54)
--- NOTE | 2018-11-19 13:43 | CP.PCM.PN ---
Subjective - Date & Time of Evaluation Date of Evaluation: 11/19/18 Time of Evaluation: 12:25 - Subjective Subjective: Still with cough but a little better, no fevers. Objective - Vital Signs/Intake and Output Vital Signs (last 24 hours): Temp Pulse Resp BP Pulse Ox 97.6 F 77 18 131/85 99 11/18/18 08:32 11/18/18 08:32 11/18/18 08:32 11/18/18 08:32 11/18/18 08:32 - Medications Medications: Current Medications Albuterol/Ipratropium (Duoneb 3 Mg/0.5 Mg (3 Ml) Ud) 3 ml IH [id number] PRN PRN Reason: Shortness of Breath Amoxicillin/Clavulanate Potassium (Augmentin 875 Mg-125 Mg Tab) 1 tab PO Q12 [facility]; Protocol Last Admin: 11/18/18 09:07 Dose: 1 tab Benzonatate (Tessalon Perles) 100 mg PO TID [facility] Last Admin: 11/18/18 09:07 Dose: 100 mg Budesonide (Pulmicort Respules) 0.5 mg IH [id number] ISAIAH Last Admin: 11/18/18 07:12 Dose: 0.5 mg Fluticasone Propionate (Flonase) 1 actuation NS DAILY [facility] Last Admin: 11/18/18 09:06 Dose: 1 spr Azithromycin 250 mg/ Sodium (Chloride) 250 mls @ 167 mls/hr IVPB DAILY [facility]; Pr otocol Last Admin: 11/18/18 09:08 Dose: 167 mls/hr Levalbuterol HCl (Xopenex) 1.25 mg IH [id number] [facility]IA[facility] Last Admin: 11/18/18 07:12 Dose: 1.25 mg Loratadine (Claritin) 10 mg PO DAILY [facility] Last Admin: 11/18/18 09:07 Dose: 10 mg Losartan Potassium (Cozaar) 50 mg PO DAILY [facility] Last Admin: 11/18/18 09:07 Dose: 50 mg Methylprednisolone (Solu-Medrol) 30 mg IVP Q8H [facility] Last Admin: 11/18/18 10:32 Dose: Not Given Montelukast Sodium (Singulair) 10 mg PO DAILY [facility] Last Admin: 11/18/18 09:07 Dose: 10 mg Pantoprazole Sodium (Protonix Ec Tab) 40 mg PO BID [facility] Last Admin: 11/18/18 09:07 Dose: 40 mg Polyethylene Glycol (Miralax) 17 gm PO DAILY [facility] Last Admin: 11/18/18 09:07 Dose: 17 gm Pregabalin (Lyrica) 25 mg PO BID [facility] Last Admin: 11/18/18 09:07 Dose: 25 mg Promethazine HCl/Codeine (Phenergan/Codeine Oral Syrup) 5 ml PO Q6H PRN PRN Reason: Cough and congestion Last Admin: 11/18/18 09:07 Dose: 5 ml Sodium Chloride ([place] Nasal [place]) 0 ml NS Q4H PRN PRN Reason: Nasal congestion Last Admin: 11/18/18 09:07 Dose: 1 spr - Labs Labs: 11/16/18 06:15 11/16/18 06:15 - Constitutional Appears: Chronically Ill - Head Exam Head Exam: NORMAL INSPECTION - Respiratory Exam Respiratory Exam: Decreased Breath Sounds - Cardiovascular Exam Cardiovascular Exam: +S1, +S2 - GI/Abdominal Exam GI & Abdominal Exam: Soft. absent: Tenderness Assessment and Plan - Assessment and Plan (Free Text) Plan: Assessment acute bronchitis in this patient asthma exacerbation, and sinusitis HTN hypothyroidism obesity with BMI 38 Plan continue Zithromax and Augmentin day 4 continue steroids as per Pulmonary discussed with Dr. Tolliver previously
[2018-11-19] MEDS ORDERED: Benzocaine/Menthol (Cepacol) Lozenge MT PRN (17:39)
--- NOTE | 2018-11-19 17:51 | CT ---
Date of service: 11/19/2018 PROCEDURE: CT SINUSES WITHOUT CONTRAST HISTORY: nasal polyp COMPARISON: . Comparison made with CT scan brain 12/24/2016 TECHNIQUE: Contiguous axial CT images of the paranasal sinuses were obtained. Coronal and sagittal reformats were generated. Radiation dose: Total exam DLP = 711.58 mGy-cm. This CT exam was performed using one or more of the following dose reduction techniques: Automated exposure control, adjustment of the mA and/or kV according to patient size, and/or use of iterative reconstruction technique. 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 ETHMOID SINUSES: Mucosal thickening noted within several ethmoid air cells. SPHENOID SINUSES: Mucosal thickening left chamber sphenoid sinus MAXILLARY SINUSES: Mild mucosal thickening seen within both maxillary antra left greater than right. 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 Right ostiomeatal complex patent... Sphenoethmoidal recesses are also patent NASAL SEPTUM: No significant deviation. No destructive lesion. Polypoid like foci are present within the right and left nasal cavities left larger than right. Findings may represent nasal polyps. No bony destructive changes are identified. SKULL BASE: Unremarkable. TEMPORAL BONES: Middle ears and mastoid grossly unremarkable. OTHER FINDINGS: None. IMPRESSION: Findings consistent with nasal polyps left larger than right. Eight region right frontal sinus and hypoplasia left frontal sinus with mild mucosal thickening. There is also mild mucosal thickening within both maxillary antra left greater than right several ethmoid air cells and left chamber of the sphenoid sinus. Occlusion left ostiomeatal complex. Right ostiomeatal complex patent.
--- NOTE | 2018-11-19 18:05 | PN ---
DATE: 11/19/2018 SUBJECTIVE: She has been in and out of the hospital a lot for the past 6 months, also coughing a lot for the past 6 months unrelenting. She is on multiple IV antibiotics and multiple IV steroids. She has been seen by receiving associate store, Infectious Disease. I have called in ENT today to get their opinion to see if it is possible reflux versus sinus versus something, also. She is on Augmentin, Claritin, Cozaar, DuoNebs, Flonase, Lyrica, MiraLax, [place] spray, Phenergan, Protonix, Pulmicort, Singulair, Solu-Medrol down to 30, very good today, I am going to decrease it down to down to 20, Tessalon Perles, Tylenol, Xopenex and Zithromax. OBJECTIVE: VITAL SIGNS: She has a 98.4 temperature, 69 pulse, 134/70 blood pressure, 16 respiratory rate, 100% O2 sat on 2 liters. HEAD: Atraumatic, normocephalic. HEART: Regular rate. LUNGS: Decreased breath sounds but clear. Second day in a row, but she has been clear with no rhonchi, wheezes or rales. ABDOMEN: Soft, obese. EXTREMITIES: No edema. LABORATORY DATA: She has a 19.6 white count, probably from the steroids, 12.7 hemoglobin, 39.2 hematocrit with 441 platelets. 139 sodium, potassium 3.8, BUN 40, creatinine 0.6, GFR ,greater than 60, sugar is 92, calcium is 9.3, total bili is 0.2, AST is 23, ALT is 30, alk phos is 61. Troponin I was less than 0.01, total protein 7. Nonreactive HIV and influenza was negative. ASSESSMENT AND PLAN: Continue as per Infectious Disease and Pulmonary IV Solu-Medrol, Zithromax, Augmentin. There will be a CT scan of the sinuses by Ears, Nose, and Throat. I will continue aggressive treatment and care. Kraig Tolliver DO [facility]
--- NOTE | 2018-11-19 23:16 | PN ---
DATE: 11/19/2018 PULMONARY PROGRESS NOTE REFERRING PHYSICIAN: Kraig Tolliver DO SUBJECTIVE: Overall she feels better, still has a cough, tolerating BiPAP well, shortness of breath is better. No nausea, vomiting, diarrhea, leg pain or leg swelling. OBJECTIVE: GENERAL: In no acute distress. VITAL SIGNS: Temperature is 98, heart rate 75, respiratory rate is 18, blood pressure 141/86, pulse ox 96% nasal cannula. HEENT: Moist mucous membrane. Crowded airway. Mallampati score of 4. NECK: Supple. No JVD. LUNGS: Have a few scattered rhonchi. HEART: S1, S2. ABDOMEN: Soft, nontender, no organomegaly. EXTREMITIES: No edema. NEUROLOGIC: Awake, alert, follows simple command. MEDICATIONS: She is on Augmentin 875 mg 1 tablet twice a day, Zithromax 250 mg daily, Claritin 10 mg daily, Cozaar 50 mg daily, albuterol/Atrovent nebulizer every 4 hours p.r.n., Flonase one spray to each nostril daily, Lyrica 25 mg twice a day, MiraLax 17 g daily, nasal saline two sprays each nostril every 4 hours, Phenergan with Codeine 5 mL every 6 hours p.r.n., Protonix 40 mg twice a day, Pulmicort inhaled twice a day, Singulair 10 mg daily, Solu-Medrol 20 mg every eight hours, Tessalon Perles 100 mg three times a day, Tylenol p.r.n., Xopenex inhaled every 6 hours. LABORATORY DATA: Shows hemoglobin 12.7, hematocrit 39.2, WBC 19.6, platelet is 441. Sodium 139, potassium 3.8, chloride 101, bicarbonate 31, BUN 14, creatinine 0.6, glucose 92, calcium is 9.3, AST 23, ALT 30, alk phos is 61. Albumin is 3.8. IMPRESSION AND PLAN: Asthma exacerbation, may have sinusitis, gastroesophageal reflux disease, hypertension, hypothyroid, osteoarthritis, suspected sleep apnea syndrome. Pulmonary point of view, clinically improving, still have a cough. Getting CT of the sinuses. We will continue IV and inhaled bronchodilator. Continue antibiotics, add nasal saline two sprays each nostril every two hours, leukotriene inhibitors. Gastroesophageal reflux disease precaution. Thank you and we will follow with you. Skyler El MD
[2018-11-20] MEDS: MethylPREDNISolone 40 mg Vial IVP SCH ×2 (02:12→10:17)
[2018-11-20] MEDS: Levalbuterol 1.25 MG/3 ML Inhal Soln UD IH SCH ×3 (03:05→13:31)
[2018-11-20 07:53] VITALS: BP 150/97; PULSE 64; RESP 16; TEMP 98.2; O2SAT 99
--- NOTE | 2018-11-20 08:05 | CON ---
DATE: 11/19/2018 HISTORY OF PRESENT ILLNESS: This is a 33-year-old female with chronic cough for the past 4-5 months, who has been treated for asthma in the past utilizing nasal sprays, Singulair, and has been on intermittent steroids as an outpatient. She was admitted on 11/15/2018 for exacerbation of her cough and exacerbation of her asthma. She is currently on Solu-Medrol for the underlying treatment of her asthma. The patient also admits to chronic nasal congestion with postnasal drip as well as pyrosis, which has been for several years. PHYSICAL EXAMINATION: Revealed her external auditory canals and tympanic membranes to be normal on examination. Oropharyngeal exam was unremarkable. Intranasal examination revealed polypoid degeneration involving both middle turbinates with evidence of septal deviation and oropharyngeal exam was unremarkable. The patient did experience evidence of dry coughing while present on examination. Alert and oriented x3 and she was in no acute distress. IMPRESSION: Our impression is that this patient may suffer from chronic cough secondarily due to asthma/chronic sinusitis or sign of bronchial syndrome/laryngopharyngeal reflux. PLAN: Our plan is to continue with the Solu-Medrol and Singulair and steroid nasal sprays. We would add a PPI to her regimen such as Nexium. We would also obtain a CT scan of the sinuses while the patient is in the hospital to assess for sinusitis and to follow up with an outpatient for outpatient direct laryngoscopy and nasal endoscopy. If you have any further questions regarding the care of this patient, feel free to contact my office. Puneet Alston DO
[2018-11-20 08:06] LABS: HEMOGLOBIN 13.4 g/dL (12.0-16.0); MEAN CELL VOLUME 81.3 fl (80.0-105.0); MEAN CORPUSCULAR HEMOGLOBIN 26.3 pg (25.0-35.0); MEAN CORPUSCULAR HGB CONC 32.4 g/dl (31.0-37.0); RBC 5.09 10^6/uL (3.5-6.1); RED CELL DISTRIBUTION WIDTH 13.8 % (11.5-14.5); WHITE BLOOD COUNT 19.7 10^3/uL (4.5-11.0)
[2018-11-20 08:17] LABS: ALB/GLOB RATIO 1.2 (1.1-1.8); ALBUMIN 4.1 g/dL (3.0-4.8); ALT/SGPT 30 U/L (7-56); AST/SGOT 22 U/L (14-36); BLOOD UREA NITROGEN 13 mg/dL (7-21); CALCIUM 9.6 mg/dL (8.4-10.5); GFR NON-AFRICAN AMERICAN > 60
[2018-11-20] MEDS: Budesonide 0.5 mg/2 ml Inhal Susp UD IH SCH (08:32)
[2018-11-20] MEDS: Pantoprazole 40 mg EC Tab PO SCH (10:11)
[2018-11-20] MEDS: Fluticasone Nasal 50 mcg/Spray NS SCH (10:12)
[2018-11-20] MEDS: Amoxicillin-Clav 875-125 mg Tab PO SCH (10:12)
[2018-11-20] MEDS: POLYETHYLENE GLYCOL 3350 17 GM/Dose PACKET PO SCH (10:17)
[2018-11-20] MEDS: Azithromycin 250 MG in Sodium Chloride 0.9% 250 ML IVPB SCH (10:18)
--- NOTE | 2018-11-20 13:36 | CP.PCM.PN ---
<Jaxon Vick - Last Filed: 11/20/18 13:32> Subjective - Date & Time of Evaluation Date of Evaluation: 11/20/18 Time of Evaluation: 10:30 - Subjective Subjective: ID Progress Note Patient seen and examined at bedside. Patient states she has had improvement in her cough and shortness of breath. Denies chest pain, fever, chills, nausea, vomiting. Objective - Vital Signs/Intake and Output Vital Signs (last 24 hours): Temp Pulse Resp BP Pulse Ox 98.2 F 64 16 150/97 H 99 11/20/18 07:00 11/20/18 07:00 11/20/18 07:00 11/20/18 07:00 11/20/18 07:00 Intake and Output: 11/20/18 11/20/18 06:59 18:59 Intake Total 780 Balance 780 - Medications Medications: Current Medications Acetaminophen (Tylenol 325mg Tab) 650 mg PO Q6H PRN PRN Reason: Headache Last Admin: 11/19/18 13:19 Dose: 650 mg Albuterol/Ipratropium (Duoneb 3 Mg/0.5 Mg (3 Ml) Ud) 3 ml IH [id number] PRN PRN Reason: Shortness of Breath Amoxicillin/Clavulanate Potassium (Augmentin 875 Mg-125 Mg Tab) 1 tab PO Q12 [facility]; Protocol Last Admin: 11/20/18 10:12 Dose: 1 tab Benzocaine/Menthol (Cepacol Sore Throat) 1 thao MT Q2H PRN PRN Reason: Sore Throat Benzonatate (Tessalon Perles) 100 mg PO TID [facility] Last Admin: 11/20/18 10:11 Dose: 100 mg Budesonide (Pulmicort Respules) 0.5 mg IH [id number] [facility] Last Admin: 11/20/18 08:32 Dose: 0.5 mg Fluticasone Propionate (Flonase) 1 actuation NS DAILY [facility] Last Admin: 11/20/18 10:12 Dose: 1 spr Levalbuterol HCl (Xopenex) 1.25 mg IH [id number] [facility] Last Admin: 11/20/18 13:31 Dose: 1.25 mg Loratadine (Claritin) 10 mg PO DAILY [facility] Last Admin: 11/20/18 10:11 Dose: 10 mg Losartan Potassium (Cozaar) 50 mg PO DAILY [facility] Last Admin: 11/20/18 10:11 Dose: 50 mg Methylprednisolone (Solu-Medrol) 20 mg IVP Q8H [facility] Last Admin: 11/20/18 10:17 Dose: 20 mg Montelukast Sodium (Singulair) 10 mg PO DAILY [facility] Last Admin: 11/20/18 10:11 Dose: 10 mg Pantoprazole Sodium (Protonix Ec Tab) 40 mg PO BID [facility] Last Admin: 11/20/18 10:11 Dose: 40 mg Polyethylene Glycol (Miralax) 17 gm PO DAILY [facility] Last Admin: 11/20/18 10:17 Dose: 17 gm Pregabalin (Lyrica) 25 mg PO BID [facility] Last Admin: 11/20/18 10:12 Dose: 25 mg Promethazine HCl/Codeine (Phenergan/Codeine Oral Syrup) 5 ml PO Q6H PRN PRN Reason: Cough and congestion Last Admin: 11/19/18 17:07 Dose: 5 ml Sodium Chloride ([place] Nasal Topping) 0 ml NS Q4H PRN PRN Reason: Nasal congestion Last Admin: 11/20/18 10:12 Dose: 1 spr - Labs Labs: 11/20/18 08:00 11/20/18 08:00 - Constitutional Appears: Non-toxic, No Acute Distress - Head Exam Head Exam: ATRAUMATIC, NORMAL INSPECTION, NORMOCEPHALIC - Respiratory Exam Respiratory Exam: Decreased Breath Sounds, NORMAL BREATHING PATTERN. absent: Rales, Rhonchi, Wheezes - Cardiovascular Exam Cardiovascular Exam: RRR, +S1, +S2 - GI/Abdominal Exam GI & Abdominal Exam: Soft, Normal Bowel Sounds. absent: Tenderness - Extremities Exam Extremities Exam: Normal Inspection. absent: Pedal Edema - Neurological Exam Neurological Exam: Alert, Awake, Oriented x3 - Psychiatric Exam Psychiatric exam: Normal Affect, Normal Mood - Skin Skin Exam: Intact, Normal Color, Warm Assessment and Plan - Assessment and Plan (Free Text) Plan: Acute bronchitis in the setting of asthma exacerbation Sinusitis HTN hypothyroidism obesity with BMI 38 Plan Will stop Azithromycin Continue Augmentin for total of 5- days Continue steroids as per pulmonary CT sinuses reviewed ENT follow up as outpatient Nicanor, PGY-3 <Jimbo Best - Last Filed: 11/20/18 14:12> Objective - Vital Signs/Intake and Output Vital Signs (last 24 hours): Temp Pulse Resp BP Pulse Ox 98.2 F 64 16 150/97 H 99 11/20/18 07:00 11/20/18 07:00 11/20/18 07:00 11/20/18 07:00 11/20/18 07:00 Intake and Output: 11/20/18 11/20/18 06:59 18:59 Intake Total 780 Balance 780 - Medications Medications: Current Medications Acetaminophen (Tylenol 325mg Tab) 650 mg PO Q6H PRN PRN Reason: Headache Last Admin: 11/19/18 13:19 Dose: 650 mg Albuterol/Ipratropium (Duoneb 3 Mg/0.5 Mg (3 Ml) Ud) 3 ml IH [id number] PRN PRN Reason: Shortness of Breath Amoxicillin/Clavulanate Potassium (Augmentin 875 Mg-125 Mg Tab) 1 tab PO Q12 [facility]; Protocol Last Admin: 11/20/18 10:12 Dose: 1 tab Benzocaine/Menthol (Cepacol Sore Throat) 1 thao MT Q2H PRN PRN Reason: Sore Throat Benzonatate (Tessalon Perles) 100 mg PO TID [facility] Last Admin: 11/20/18 10:11 Dose: 100 mg Budesonide (Pulmicort Respules) 0.5 mg IH [id number] [facility] Last Admin: 11/20/18 08:32 Dose: 0.5 mg Fluticasone Propionate (Flonase) 1 actuation NS DAILY [facility] Last Admin: 11/20/18 10:12 Dose: 1 spr Levalbuterol HCl (Xopenex) 1.25 mg IH [id number] [facility] Last Admin: 11/20/18 13:31 Dose: 1.25 mg Loratadine (Claritin) 10 mg PO DAILY [facility] Last Admin: 11/20/18 10:11 Dose: 10 mg Losartan Potassium (Cozaar) 50 mg PO DAILY [facility] Last Admin: 11/20/18 10:11 Dose: 50 mg Methylprednisolone (Solu-Medrol) 20 mg IVP Q8H [facility] Last Admin: 11/20/18 10:17 Dose: 20 mg Montelukast Sodium (Singulair) 10 mg PO DAILY [facility] Last Admin: 11/20/18 10:11 Dose: 10 mg Pantoprazole Sodium (Protonix Ec Tab) 40 mg PO BID [facility] Last Admin: 11/20/18 10:11 Dose: 40 mg Polyethylene Glycol (Miralax) 17 gm PO DAILY [facility] Last Admin: 11/20/18 10:17 Dose: 17 gm Pregabalin (Lyrica) 25 mg PO BID [facility] Last Admin: 11/20/18 10:12 Dose: 25 mg Promethazine HCl/Codeine (Phenergan/Codeine Oral Syrup) 5 ml PO Q6H PRN PRN Reason: Cough and congestion Last Admin: 11/19/18 17:07 Dose: 5 ml Sodium Chloride ([place] Nasal Topping) 0 ml NS Q4H PRN PRN Reason: Nasal congestion Last Admin: 11/20/18 10:12 Dose: 1 spr - Labs Labs: 11/20/18 08:00 11/20/18 08:00 Assessment and Plan - Assessment and Plan (Free Text) Plan: Infectious diseases Attending Physician Attestation Patient seen and examined, discussed with veterinary medical officer. I have reviewed the patient's history of present illness, past medical, social, personal and family histories, pertinent physical exam findings, course so far in this hospital admission, pertinent laboratory and imaging results. I agree with the above findings, assessment and plan. In addition, continue Zithromax and Augmentin for acute bronchitis with asthma exacerbation and sinusitis, R/O post-nasal drip. ENT following as well. Will d/c Zithromax after today.
--- NOTE | 2018-11-20 14:06 | PN ---
DATE: 11/20/2018 PULMONARY PROGRESS NOTE REFERRING PHYSICIAN: Kraig Tolliver DO SUBJECTIVE: The patient is sitting up in bed, no acute distress, reports using BiPAP last night. Reports that she is feeling better, but still has coughing. No headache, rhinitis, chest pain, abdominal pain, nausea, vomiting, diarrhea, leg pain, leg swelling or shortness of breath reported. OBJECTIVE: GENERAL: No acute distress. VITAL SIGNS: Blood pressure 150/97, pulse 64, temperature 98.2, oxygen saturation 99% on room air. HEENT: Moist mucous membranes. Mallampati score of 4. Crowded airway. NECK: Supple. No JVD. LUNGS: Scattered rhonchi bilaterally. CARDIOVASCULAR: S1, S2 audible. ABDOMEN: Soft, nontender. No distension. No organomegaly. EXTREMITIES: No bilateral lower extremity edema. NEUROLOGIC: Awake, alert, verbal, follows commands. MEDICATIONS: Reviewed. Tylenol 650 every 6 hours p.r.n., DuoNeb 3 mL inhalation every 4 hours p.r.n., Augmentin 1 tab every 12 hours, azithromycin 250 mg daily, Cepacol throat lozenges every 2 hours p.r.n., Tessalon Perles 100 mg 3 times a day, Pulmicort 0.5 mg every 12 hours, Flonase nasal spray daily, Xopenex 1.25 mg inhalation every 6 hours, Claritin 10 mg daily, Cozaar 50 mg daily, Solu-Medrol 20 mg every 8 hours, Singulair 10 mg daily, Protonix 40 mg twice a day, MiraLax 17 g daily, Lyrica 25 mg twice a day, Phenergan with Codeine 5 mL every 6 hours p.r.n., [place] nasal spray every 4 hours p.r.n. LABORATORY DATA: Reviewed. WBC 19.7, RBC 5.09, hemoglobin 13.4, hematocrit 41.4, and platelets 414. Sodium 137, potassium 4.4, chloride 100, carbon dioxide 30, anion gap 12, BUN 13, creatinine 0.6, GFR greater than 60, random glucose 170, calcium 9.6, total bilirubin 0.2. AST 22, ALT 30, alkaline phosphatase 65, total protein 7.6, albumin 4.1, globulin 3.5, albumin-globulin ratio 1.2. Sinus CT shows nasal polyps left larger than right region, right frontal sinus and hypoplasia left frontal sinus with mild mucosal thickening, also mild mucosal thickening within both maxillary and to the left greater than right several ethmoid air cells and left chamber of the sphenoid sinus occlusion, left ostiomeatal complex, right ostiomeatal complex patent. IMPRESSION AND PLAN: Asthma exacerbation, sinusitis, gastroesophageal reflux disease, hypertension, hypothyroidism, osteoarthritis, suspected sleep apnea syndrome. Pulmonary point of view, continue inhaled bronchodilators, antibiotics, nasal sprays, leukotriene inhibitors, gastroesophageal reflux precautions, gastric prophylaxis, ENT followup. We suspect hypoventilation syndrome in this patient with PCO2 when the patient was admitted of 37. The patient reports being discharged today, should go home on antibiotics to treat sinusitis, should go home on tapering dose of steroids. The patient needs attended sleep study as outpatient and full pulmonary function test. The patient was seen and examined with Dr. El. Discussed assessment and plan as described above. Thank you for this consult. We will follow with you. Shun Bermudez APN Skyler El MD [facility]
--- NOTE | 2018-11-21 00:21 | DS ---
HISTORY OF PRESENT ILLNESS: She is resting comfortably in bed. She is breathing better. She is on a decreased Solu-Medrol, which is good. We are going to hopefully discharge her today. She will be on Augmentin, , Claritin, Cozaar, DuoNeb, fluticasone, Lyrica, MiraLax, famotidine with codeine, Protonix, Pulmicort, and Singulair. I am changing the Solu-Medrol to prednisone 40 for 3 days, 30 for 3 days, 20 for 3 days, 10 for 3 days and stop, Tessalon, Tylenol, Xopenex, and azithromycin. PHYSICAL EXAMINATION: VITAL SIGNS: An 98.2 temperature, 64 pulse, 150/97 blood pressure, 16 respiratory rate, and 99% O2 sat on room air. HEENT: Head is atraumatic and normocephalic. HEART: Regular rate. LUNGS: Clear to auscultation. ABDOMEN: Soft. EXTREMITIES: No edema. LABORATORY DATA: She has 19.7 white count, 30.4 hemoglobin, 41.4 hematocrit with 414 platelets. Sodium 137, potassium 4.4, BUN 13, creatinine 0.6, GFR is greater than 60, sugar is 117, calcium is 9.6, and total bili is 0.2. AST is 22, ALT is 30, alk phos is 65, and total protein is 7.6. ASSESSMENT AND PLAN: She will be discharge today, I just see her in the office this week and she will call me if anything changes. She has multiple issues while she was here chronic obstructive pulmonary disease, asthma, and sinusitis. Kraig Tolilver DO MTDFior
== END 2018-11-20 16:03 | disposition home or self-care (01) | DRG 96 ==
LOC: ED 08:32 → ERH 09:25 → 5RSO 11:22
PROVIDERS: ADMIT Family Medicine; ATTEND Family Medicine
PROC: 5A09357 Assistance with Respiratory Ventilation, Less than 24 Consecutive Hours, Continuous Positive Airway Pressure (ICD-10-PCS; principal; 2018-11-15)
DX: J45.901 Unspecified asthma with (acute) exacerbation (principal); J44.0 Chronic obstructive pulmonary disease with (acute) lower respiratory infection; I07.1 Rheumatic tricuspid insufficiency; J20.9 Acute bronchitis, unspecified; I10 Essential (primary) hypertension; E03.9 Hypothyroidism, unspecified; F32.9 Major depressive disorder, single episode, unspecified; F41.9 Anxiety disorder, unspecified; K21.9 Gastro-esophageal reflux disease without esophagitis; K59.09 Other constipation; E66.9 Obesity, unspecified; Z68.38 Body mass index [BMI] 38.0-38.9, adult; Z87.891 Personal history of nicotine dependence

== ENCOUNTER 2018-12-03 19:28 | Emergency (ER) | payer MEDICAID ==
[2018-12-03 19:29] VITALS: BMI 39.9
[2018-12-03 19:45] VITALS: RESP 18; TEMP 97.5; O2SAT 100
[2018-12-03 20:20] LABS: BASO # 0.02 K/mm3 (0.0-2.0); BASO % 0.1 % (0.0-3.0); EOS # 0.2 (0.0-0.7); HEMOGLOBIN 12.6 g/dL (12.0-16.0); LYMPH # 5.9 (1.2-3.4); LYMPH % 34.2 % (22.0-35.0); MEAN CORPUSCULAR HEMOGLOBIN 26.7 pg (25.0-35.0); MEAN CORPUSCULAR HGB CONC 32.6 g/dl (31.0-37.0); MEAN PLATELET VOLUME 9.1 fl (7.0-11.0); MONO # 1.1 (0.1-0.6); MONO % 6.1 % (1.0-6.0); RBC 4.72 10^6/uL (3.5-6.1); WHITE BLOOD COUNT 17.2 10^3/uL (4.5-11.0)
[2018-12-03 20:26] LABS: INR 0.99; PARTIAL THROMBOPLASTIN TIME 34.9 Seconds (26.9-38.3)
[2018-12-03 20:30] LABS: D DIMER < 200 ng/mlDDU (0-243)
[2018-12-03 20:32] LABS: VENOUS BLOOD GAS PO2 71 mm/Hg (30-55); VENOUS BLOOD PH 7.43 (7.32-7.43)
[2018-12-03 20:36] LABS: ALB/GLOB RATIO 1.2 (1.1-1.8); ALBUMIN 3.9 g/dL (3.0-4.8); ALT/SGPT 14 U/L (7-56); AST/SGOT 22 U/L (14-36); BLOOD UREA NITROGEN 13 mg/dL (7-21); GFR NON-AFRICAN AMERICAN > 60
--- NOTE | 2018-12-03 20:36 | ED PDOC ---
Arrival/HPI - General Chief Complaint: Shortness Of Breath Time Seen by Provider: 12/03/18 19:49 Historian: Patient - History of Present Illness Narrative History of Present Illness (Text): 12/03/18 19:50 33 year old female, whose past medical history includes asthma, hypertension, hypothyroidism, migraines, RA, and obesity, presents to the emergency department complaining of shortness of breath and right-sided chest pain that began today. Patient reports she took Dulcolax before the symptoms began. Patient denies any fever, chills, nausea, vomiting, diarrhea, urinary symptoms, back pain, neck pain, headache, dizziness, or any other complaints. PMD: Dr. Tolliver Time/Duration: Other (today) Symptom Onset: Gradual Symptom Course: Unchanged Activities at Onset: Light Context: Home Past Medical History - Provider Review Nursing Documentation Reviewed: Yes - Past History Past History: Non-Contributing - Infectious Disease Hx of Infectious Diseases: None - Tetanus Immunization Tetanus Immunization: Unknown - Reproductive Currently : No - Cardiac Hx Angina: No Hx Cardiac Arrhythmia: Yes Hx Circulatory Problems: No Hx Congestive Heart Failure: No Hx Heart Murmur: No Hx Heart Transplant: No Hx Hypertension: No Hx Internal Defibrillator: No Hx Mitral Valve Prolapse: No Hx Pacemaker: No Hx Peripheral Edema: No Hx Peripheral Vascular Disease: No - Pulmonary Hx Asthma: Yes - Neurological Hx Neurological Disorder: Yes Hx Migraine: Yes - HEENT Hx HEENT Disorder: Yes (eyeglasses) - Renal Hx Renal Disorder: No - Endocrine/Metabolic Hx Hyperthyroidism: Yes - Hematological/Oncological Hx Blood Disorders: No - Integumentary Hx Dermatological Disorder: No - Musculoskeletal/Rheumatological Hx Falls: No - Gastrointestinal Hx Gastrointestinal Disorders: Yes (obese, chronic constipation) Hx Gastroesophageal Reflux: Yes - Genitourinary/Gynecological Hx Genitourinary Disorders: No Hx Urinary Tract Infection: (pt denies) - Psychiatric Hx Psychophysiologic Disorder: Yes Hx Anxiety: Yes Hx Depression: Yes Hx Substance Use: No - Surgical History Hx Cardiac Catheterization: No Hx Coronary Stent: No - Anesthesia Hx Anesthesia: Yes Hx Anesthesia Reactions: Yes (NAUSEA) Hx Malignant Hyperthermia: No - Suicidal Assessment Feels Threatened In Home Enviroment: No Family/Social History - Physician Review Nursing Documentation Reviewed: Yes Family/Social History: No Known Family HX Smoking Status: Former Smoker Hx Alcohol Use: No Hx Substance Use: No Hx Substance Use Treatment: No Allergies/Home Meds Allergies/Adverse Reactions: Allergies shellfish derived Allergy (Verified 10/12/18 12:32) ANAPHYLAXIS red 40 Allergy (Uncoded 10/12/18 12:32) ANAPHYLAXIS iv contrast Adverse Reaction (Uncoded 10/12/18 12:32) SHORTNESS OF BREATH Home Medications: Home Meds Medication Instructions Recorded Confirmed Budesonide/Formoterol Fumarate 1 aer IH DAILY 11/13/18 11/15/18 [Symbicort] Fluticasone Nasal [Flonase] 1 spr NS DAILY 11/13/18 11/15/18 Montelukast [Singulair] 10 mg PO DAILY 11/13/18 11/15/18 Polyethylene Glycol 8000 1 pow NA DAILY 11/13/18 11/15/18 Promethazine DM [Phenergan DM 5 ml PO TID 11/13/18 11/15/18 Syrup] Promethazine HCl/Codeine 5 ml PO HS 11/13/18 11/15/18 [Prometh-Codein 6.25-10 mg/5 ml] Review of Systems - Physician Review All systems were reviewed & negative as marked: Yes - Review of Systems Constitutional: absent: Fevers, Other (chills) Respiratory: SOB Cardiovascular: Chest Pain Gastrointestinal: absent: Diarrhea, Nausea, Vomiting Genitourinary Female: absent: Dysuria, Frequency, Hematuria Musculoskeletal: absent: Back Pain, Neck Pain Neurological: absent: Headache, Dizziness Physical Exam Vital Signs Reviewed: Yes Vital Signs Temp Pulse Resp BP Pulse Ox 12/03/18 19:29 97.5 F L 116 H 18 142/87 100 Temperature: Afebrile Blood Pressure: Normal Pulse: Tachycardic Respiratory Rate: Tachypneic Appearance: Positive for: Well-Appearing, Non-Toxic, Comfortable Pain Distress: None Mental Status: Positive for: Alert and Oriented X 3 - Systems Exam Head: Present: Atraumatic, Normocephalic Pupils: Present: PERRL Extroacular Muscles: Present: EOMI Conjunctiva: Present: Normal Mouth: Present: Moist Mucous Membranes Neck: Present: Normal Range of Motion Respiratory/Chest: Present: Tachypneic. No: Respiratory Distress, Accessory Muscle Use Cardiovascular: Present: Tachycardic. No: Murmurs Abdomen: No: Tenderness, Distention, Peritoneal Signs Back: Present: Normal Inspection Upper Extremity: Present: Normal Inspection. No: Cyanosis, Edema Lower Extremity: Present: Normal Inspection. No: Edema Neurological: Present: GCS=15, CN II-XII Intact, Speech Normal Skin: Present: Warm, Dry, Normal Color. No: Rashes Psychiatric: Present: Alert, Oriented x 3, Normal Insight, Normal Concentration Medical Decision Making ED Course and Treatment: 12/03/18 19:50 Impression: 33 year old female presents complaining of shortness of breath and right-sided chest pain after taking Dulcolax today. Plan: -- VBG -- EKG -- Labs -- POC Urine Test -- Rapid Flu -- Reassess and disposition Prior Visits: Notes and results from previous visits were reviewed. Progress Notes: Reviewed EKG, NSR at [address]-segment elevations or depressions, no T-wave inversions, normal intervals. 12/03/18 22:05 US Abdomen: Mildly enlarged measuring 19.2 cm in the midclavicular line. The liver demonst rated a homogeneous echotexture. No mass. GALLBLADDER: The gallbladder appears within normal limits. No gallbladder wall thickening, cholelithiasis or pericholecystic fluid. COMMON BILE DUCT: Within normal limits in size. 5.8 mm. PANCREAS: The distal pancreas is obscured by bowel gas. The visualized portion of the pancreas appears within normal limits. RIGHT KIDNEY: Unremarkable. Normal renal contours. No renal mass or calculus. No hydronephrosis. IMPRESSION: 1. Mild hepatomegaly. 2. Otherwise, unremarkable right upper quadrant abdominal ultrasound evaluation. Electronically signed on Dec 03, 2018 10:03:31 PM EST by: Eusebio Mills M.D., NIKO Certified By [facility] Fellowship Trained MRI and CT Specialist 12/04/18 00:15 On re-evaluation, patient feels better and is in no acute distress. I have discussed the results and plan with the patient, who expresses understanding. Patient in agreement with plan to be discharged home. Patient is stable for discharge. Patient was instructed to follow up with physician or return if symptoms worsen or new concerning symptoms arise. - Lab Interpretations Lab Results: PT 11.0 SECONDS (9.4-12.5) 12/03/18 20:01 INR 0.99 12/03/18 20:01 APTT 34.9 Seconds (26.9-38.3) 12/03/18 20:01 D-Dimer, Quantitative < 200 ng/mlDDU (0-243) 12/03/18 20:01 I have reviewed the lab results: Yes - EKG Interpretation Interpreted by ED Physician: Yes Type: 12 lead EKG - Scribe Statement The provider has reviewed the documentation as recorded by the Arunaibdewey Vance Provider Scribe Attestation: All medical record entries made by the Scribe were at my direction and personally dictated by me. I have reviewed the chart and agree that the record accurately reflects my personal performance of the history, physical exam, m edical decision making, and the department course for this patient. I have also personally directed, reviewed, and agree with the discharge instructions and disposition. Disposition/Present on Arrival - Present on Arrival Any Indicators Present on Arrival: No History of DVT/PE: No History of Uncontrolled Diabetes: No Urinary Catheter: No History of Decub. Ulcer: No History Surgical Site Infection Following: None - Disposition Have Diagnosis and Disposition been Completed?: Yes Diagnosis: Bronchospasm, Asthmatic bronchitis Disposition: HOME/ ROUTINE Disposition Time: 00:15 Condition: GOOD Discharge Instructions (ExitCare): Asthma in Adults Prescriptions: levoFLOXacin [Levaquin] 500 mg PO DAILY #10 tab predniSONE [predniSONE Tab] 20 mg PO TID #15 tab Forms: [employer] ([employer])
[2018-12-03 20:38] LABS: B-TYPE NATRIURETIC PEPTIDE < 11.1 pg/mL (0-450); TROPONIN I < 0.01 ng/mL
[2018-12-03] MEDS ORDERED: Promethazine/Cod 6.25mg-10mg/5ml Syr UD PO STA (21:08)
[2018-12-03] MEDS ORDERED: Albuterol-Ipratrop 3 mg / 0.5 (3 ml) UD IH STA (22:18)
[2018-12-03] MEDS ORDERED: levoFLOXacin 500 MG TAB PO STA (23:43)
[2018-12-04 00:18] VITALS: BP 124/60; PULSE 92
--- NOTE | 2018-12-04 09:18 | RAD ---
Date of service: 12/03/2018 HISTORY: sob COMPARISON: 11/15/2018 TECHNIQUE: Chest PA and lateral FINDINGS: LUNGS: No active pulmonary disease. PLEURA: No significant pleural effusion identified. No pneumothorax apparent. CARDIOVASCULAR: No aortic atherosclerotic calcification present. Normal cardiac size. No pulmonary vascular congestion. OSSEOUS STRUCTURES: No significant abnormalities. VISUALIZED UPPER ABDOMEN: Normal. OTHER FINDINGS: None. IMPRESSION: No active disease.
--- NOTE | 2018-12-04 10:37 | CARD ---
APPROVED REPORT Date of service: 12/03/2018 EKG Measurement Heart [id number] <Conclusion> Normal sinus rhythm Normal ECG
--- NOTE | 2018-12-04 15:56 | US ---
Date of service: 12/03/2018 HISTORY: abd pain COMPARISON: None. TECHNIQUE: Sonographic evaluation of the right upper quadrant of the abdomen. FINDINGS: LIVER: Measures cm in length. Heterogeneous echogenicity of the liver parenchyma. No mass. No intrahepatic bile duct dilatation. GALLBLADDER: Unremarkable. No gallstones. COMMON BILE DUCT: Measures mm. No stones. No dilatation. PANCREAS: Unremarkable as visualized. No mass. No ductal dilatation. RIGHT KIDNEY: Measures cm in length. Normal echogenicity. No calculus, mass, or hydronephrosis. AORTA: No aneurysmal dilatation. IVC: Unremarkable. OTHER FINDINGS: None . IMPRESSION: Fatty liver.
== END 2018-12-04 00:20 | disposition home or self-care (01) ==
LOC: ED 19:28
DX: J45.909 Unspecified asthma, uncomplicated (principal); J98.01 Acute bronchospasm; I10 Essential (primary) hypertension; E03.9 Hypothyroidism, unspecified; M06.9 Rheumatoid arthritis, unspecified
CPT/HCPCS: 71046; 76705; 80053; 81025; 82550; 82803; 83615; 83735; 83880; 84484; 85025; 85378; 85610; 85730; 87804; 93005; 96374; 99284; J2930

== ENCOUNTER 2018-12-25 09:43 | Emergency (ER) | payer MEDICAID | END 2018-12-25 12:03 | disposition home or self-care (01) | LOC: ED 09:43 ==

== ENCOUNTER 2019-02-07 16:18 | Emergency (ER) | payer MEDICAID ==
[2019-02-07 16:45] VITALS: BMI 26.8
[2019-02-07 16:52] VITALS: RESP 18; O2SAT 100
--- NOTE | 2019-02-07 16:52 | ED PDOC ---
Arrival/HPI - General Chief Complaint: Dizziness/Lightheaded Time Seen by Provider: 02/07/19 16:32 Historian: Patient - History of Present Illness Narrative History of Present Illness (Text): 02/07/19 16:46 33 year old female, whose past medical history includes anxiety, endoscopy, hypertension, asthma and hyperthyroidism (monitors it without taking medications), presents to the ED for dizziness for the past 3 days. Patient de scribes dizziness as "room-spinning" and reports associated nausea, chest tightness and palpitations. Reports tightness in her chest. Reports hx of endoscopy 3 months ago. Patient denies any fevers, chills, headache, cough, vomiting, diarrhea, back pain, neck pain, ear pain, dysuria, urinary/bowel changes, or any other complaints. PMD: Dr. Tolliver 02/07/19 18:22 Time/Duration: < week Symptom Onset: Gradual Symptom Course: Unchanged Activities at Onset: Light Context: Home Past Medical History - Provider Review Nursing Documentation Reviewed: Yes - Past History Past History: Non-Contributing - Infectious Disease Hx of Infectious Diseases: None - Tetanus Immunization Tetanus Immunization: Unknown - Cardiac Hx Angina: No Hx Cardiac Arrhythmia: Yes Hx Circulatory Problems: No Hx Congestive Heart Failure: No Hx Heart Murmur: No Hx Heart Transplant: No Hx Hypertension: No Hx Hypotension: Yes Hx Internal Defibrillator: No Hx Mitral Valve Prolapse: No Hx Pacemaker: No Hx Peripheral Edema: No Hx Peripheral Vascular Disease: No - Pulmonary Hx Asthma: Yes Hx Bronchitis: Yes - Neurological Hx Neurological Disorder: Yes Hx Migraine: Yes - HEENT Hx HEENT Disorder: Yes (eyeglasses) - Renal Hx Renal Disorder: No - Endocrine/Metabolic Hx Hyperthyroidism: Yes - Hematological/Oncological Hx Blood Disorders: No - Integumentary Hx Dermatological Disorder: No - Musculoskeletal/Rheumatological Hx Falls: No - Gastrointestinal Hx Gastrointestinal Disorders: Yes (obese, chronic constipation) Hx Gastroesophageal Reflux: Yes - Genitourinary/Gynecological Hx Genitourinary Disorders: No Hx Urinary Tract Infection: (pt denies) - Psychiatric Hx Psychophysiologic Disorder: Yes Hx Anxiety: Yes Hx Depression: Yes Hx Substance Use: No - Surgical History Hx Cardiac Catheterization: No Hx Coronary Stent: No - Anesthesia Hx Anesthesia: Yes Hx Anesthesia Reactions: Yes (NAUSEA) Hx Malignant Hyperthermia: No - Suicidal Assessment Feels Threatened In Home Enviroment: No Family/Social History - Physician Review Nursing Documentation Reviewed: Yes Family/Social History: Unknown Family HX Smoking Status: Former Smoker Hx Alcohol Use: No Hx Substance Use: No Hx Substance Use Treatment: No Allergies/Home Meds Allergies/Adverse Reactions: Allergies shellfish derived Allergy (Verified 12/25/18 10:21) ANAPHYLAXIS red 40 Allergy (Uncoded 12/25/18 10:21) ANAPHYLAXIS iv contrast Adverse Reaction (Uncoded 12/25/18 10:21) SHORTNESS OF BREATH Home Medications: Home Meds Medication Instructions Recorded Confirmed Budesonide/Formoterol Fumarate 1 aer IH DAILY 11/13/18 12/25/18 [Symbicort] Fluticasone Nasal [Flonase] 1 spr NS DAILY 11/13/18 12/25/18 Montelukast [Singulair] 10 mg PO DAILY 11/13/18 12/25/18 Review of Systems - Review of Systems Constitutional: absent: Fatigue, Fevers Eyes: absent: Vision Changes ENT: absent: Hearing Changes, Epistaxis Respiratory: Other (chest tightness, can't take full breath) Cardiovascular: Chest Pain, Palpitations. absent: Edema, Calf Pain Gastrointestinal: Nausea. absent: Constipation, Diarrhea, Vomiting Genitourinary Female: absent: Dysuria, Frequency Musculoskeletal: absent: Back Pain, Neck Pain Skin: absent: Rash Neurological: Dizziness. absent: Headache Endocrine: absent: Diaphoresis Hemo/Lymphatic: absent: Adenopathy Psychiatric: absent: Anxiety Physical Exam Vital Signs Reviewed: Yes Temperature: Afebrile Blood Pressure: Normal Pulse: Regular Respiratory Rate: Normal Appearance: Positive for: Well-Appearing, Non-Toxic, Comfortable Pain Distress: Mild Mental Status: Positive for: Alert and Oriented X 3 - Systems Exam Head: Present: Atraumatic, Normocephalic Pupils: Present: PERRL Extroacular Muscles: Present: EOMI Conjunctiva: Present: Normal Mouth: Present: Moist Mucous Membranes Neck: Present: Normal Range of Motion Respiratory/Chest: Present: Clear to Auscultation, Good Air Exchange. No: Respiratory Distress, Accessory Muscle Use Cardiovascular: Present: Regular Rate and Rhythm, Normal S1, S2. No: Murmurs Abdomen: No: Tenderness, Distention, Peritoneal Signs Upper Extremity: Present: Normal Inspection. No: Cyanosis, Edema Lower Extremity: Present: Normal Inspection. No: Edema Neurological: Present: GCS=15, CN II-XII Intact, Speech Normal Skin: Present: Warm, Dry, Normal Color. No: Rashes Psychiatric: Present: Alert, Oriented x 3, Normal Insight, Normal Concentration Medical Decision Making ED Course and Treatment: 02/07/19 16:56 Impression: 33 year old female who presents to the ED for dizziness with associated nausea, chest tightness and palpitations for the past 3 days. Plan: -- Labs -- Chest X-Ray -- Antivert -- IV Fluids -- Urine Test -- Urinalysis -- Reassess and disposition Prior Visits: Notes and results from previous visits were reviewed. Patient was last seen in the emergency department on Progress Notes: EKG: NSR @ 89 bpm. 02/07/19 18:22 Cxray negative. D-dimer elevated. VQ ordered due to iv contrast allergy 02/07/19 19:23 Trop negative. TSH WNL. Signed out to Dr. Apollo Hennessy as pending VQ scan to r/o PE 02/07/19 19:24 - Scribe Statement The provider has reviewed the documentation as recorded by the Scribe [facility] Provider Scribe Attestation: All medical record entries made by the Scribe were at my direction and personally dictated by me. I have reviewed the chart and agree that the record accurately reflects my personal performance of the history, physical exam, medical decision making, and the department course for this patient. I have also personally directed, reviewed, and agree with the discharge instructions and disposition. Disposition/Present on Arrival - Present on Arrival Any Indicators Present on Arrival: No History of DVT/PE: No History of Uncontrolled Diabetes: No Urinary Catheter: No History Surgical Site Infection Following: None - Disposition Have Diagnosis and Disposition been Completed?: No Diagnosis: Hematuria, Pleuritic chest pain Disposition Time: 20:00 Patient Problems: Current Active Problems Problem Status Onset Hematuria Acute Pleuritic chest pain Acute Condition: FAIR Discharge Instructions (ExitCare): Chest Pain (ED) Forms: [employer] (Greek)
[2019-02-07 16:59] LABS: BASO # 0.02 K/mm3 (0.0-2.0); BASO % 0.2 % (0.0-3.0); EOS # 0.3 (0.0-0.7); EOS % 2.9 % (1.5-5.0); LYMPH # 4.5 (1.2-3.4); LYMPH % 40.2 % (22.0-35.0); MEAN CELL VOLUME 81.6 fl (80.0-105.0); MEAN CORPUSCULAR HEMOGLOBIN 26.5 pg (25.0-35.0); MEAN CORPUSCULAR HGB CONC 32.5 g/dl (31.0-37.0); MONO # 0.7 (0.1-0.6); MONO % 5.8 % (1.0-6.0); RBC 4.9 10^6/uL (3.5-6.1); RED CELL DISTRIBUTION WIDTH 12.7 % (11.5-14.5); WHITE BLOOD COUNT 11.2 10^3/uL (4.5-11.0)
[2019-02-07 17:05] VITALS: TEMP 98.1
[2019-02-07] MEDS: Sodium Chloride 0.9% 1,000 ML IV STA (17:30)
[2019-02-07 18:02] LABS: URINE BILIRUBIN NEGATIVE (NEGATIVE); URINE BLOOD LARGE (NEGATIVE); URINE GLUCOSE (UA) NEGATIVE (NEGATIVE); URINE LEUKOCYTE ESTERASE NEGATIVE Leu/uL (NEGATIVE); URINE PROTEIN NEGATIVE mg/dL (<30 mg/dL); URINE UROBILINOGEN 0.2 E.U./dL (<1 E.U./dL)
[2019-02-07 18:04] LABS: URINE APPEARANCE SL CLOUDY (CLEAR)
[2019-02-07 18:16] LABS: URINE COLOR YELLOW (YELLOW)
[2019-02-07 18:17] LABS: URINE BACTERIA MOD /hpf
--- NOTE | 2019-02-07 18:24 | RAD ---
HISTORY: palpitations COMPARISON: Chest x-ray performed 12/03/18 TECHNIQUE: Chest, one view. FINDINGS: LUNGS: Examination limited by habitus and hypoinflation. No focal consolidation. PLEURA: No significant pleural effusion identified. No definite pneumothorax . CARDIOVASCULAR: Heart size appears within normal limits. No significant atherosclerotic calcification present. OSSEOUS STRUCTURES: No acute osseous abnormality identified. VISUALIZED UPPER ABDOMEN: Unremarkable. OTHER FINDINGS: None. IMPRESSION: No focal consolidation.
[2019-02-07 18:32] LABS: ALB/GLOB RATIO 1.1 (1.1-1.8); ALBUMIN 3.9 g/dL (3.0-4.8); BLOOD UREA NITROGEN 7 mg/dL (7-21)
[2019-02-07 18:43] LABS: TROPONIN I < 0.01 ng/mL
[2019-02-07 18:56] LABS: FREE T4 1.12 ng/dL (0.78-2.19)
[2019-02-07 19:04] LABS: ALT/SGPT 17 U/L (7-56); AST/SGOT 28 U/L (14-36)
--- NOTE | 2019-02-07 19:08 | CARD ---
APPROVED REPORT Date of service: 02/07/2019 EKG Measurement Heart [id number] <Conclusion> Poor data quality, interpretation may be adversely affected Normal sinus rhythm Normal ECG
[2019-02-07 19:15] LABS: GFR NON-AFRICAN AMERICAN > 60
--- NOTE | 2019-02-07 20:15 | ED PDOC ---
Physical Exam Vital Signs Temp Pulse Resp BP Pulse Ox 02/07/19 17:02 98.1 F 83 18 141/85 100 02/07/19 16:52 83 18 100 Medical Decision Making ED Course and Treatment: 02/07/19 20:[address] Conway with patient pending VQ scan. Labs unremarkable with negative troponin, EKG and CXR. 02/07/19 21:11 Patient reluctant to have VQ scan administered due to having an asthmatic episode subsequently last time she had a similar imaging exam performed. Tech attempting to discuss risks vs benefits with patient who is aware she will have to sign out AMA if she refuses. 02/08/19 00:31 VQ scan negative for PE. Patient updated on image findings and educated on the importance of isolating triggers and triggers symptomatically. She is advised to follow up with her PCP and is given scripts. Opportunity for questions given and answered. She is stable for discharge. - Lab Interpretations Microbiology Results: 02/07/19 16:49 02/07/19 18:30 Lab Results 02/07/19 18:39: Free T4 1.12, TSH 3rd Generation 0.83 02/07/19 18:30: Sodium 136, Potassium 4.1, Chloride 100, Carbon Dioxide 28, Anion Gap 12, BUN 7, Creatinine 0.5 L, Est GFR ( Amer) > 60, Est GFR (Non-Af Amer) > 60, Random Glucose 93, Calcium 9.0, Phosphorus 3.9, Magnesium 1.8, Total Bilirubin 0.3, AST 28, ALT 17, Alkaline Phosphatase 73, Troponin I < 0.01, Total Protein 7.5, Albumin 3.9, Globulin 3.6, Albumin/Globulin Ratio 1.1 02/07/19 17:59: Urine Color Yellow, Urine Appearance Sl cloudy, Urine pH 7.0, Ur Specific [place] 1.010, Urine Protein Negative, Urine Glucose (UA) Negative, Urine Ketones Negative, Urine Blood Large H, Urine Nitrate Negative, Urine Bilirubin Negative, Urine Urobilinogen 0.2, Ur Leukocyte Esterase Negative, Uri ne RBC 10 - 15 H, Urine WBC 2 - 5, Ur Epithelial Cells 6 - 8 H, Urine Bacteria Mod 02/07/19 16:49: D-Dimer, Quantitative 474 H 02/07/19 16:49: WBC 11.2 H D, RBC 4.90, Hgb 13.0, Hct 40.0, MCV 81.6, MCH 26.5, MCHC 32.5, RDW 12.7, Plt Count 406, MPV 10.0, Neut % (Auto) 50.9, Lymph % (Auto) 40.2 H, [place] % (Auto) 5.8, Eos % (Auto) 2.9, Baso % (Auto) 0.2, Lymph # (Auto) 4.5 H, [place] # (Auto) 0.7 H, Eos # (Auto) 0.3, Baso # (Auto) 0.02, Absolute Neuts (auto) 5.70 Lab Results: D-Dimer, Quantitative 474 ng/mlDDU (0-243) H 02/07/19 16:49 Troponin I < 0.01 ng/mL 02/07/19 18:30 Total Bilirubin 0.3 mg/dL (0.2-1.3) 02/07/19 18:30 AST 28 U/L (14-36) 02/07/19 18:30 ALT 17 U/L (7-56) 02/07/19 18:30 Alkaline Phosphatase 73 U/L (38-126) 02/07/19 18:30 Total Protein 7.5 g/dL (5.8-8.3) 02/07/19 18:30 Albumin 3.9 g/dL (3.0-4.8) 02/07/19 18:30 Globulin 3.6 gm/dL 02/07/19 18:30 Albumin/Globulin Ratio 1.1 (1.1-1.8) 02/07/19 18:30 Urine Color Yellow (YELLOW) 02/07/19 17:59 Urine Appearance Sl cloudy (CLEAR) 02/07/19 17:59 Urine pH 7.0 (4.7-8.0) 02/07/19 17:59 Ur Specific [place] 1.010 (1.005-1.035) 02/07/19 17:59 Urine Protein Negative mg/dL (<30 mg/dL) 02/07/19 17:59 Urine Glucose (UA) Negative mg/dL (NEGATIVE) 02/07/19 17:59 Urine Ketones Negative mg/dL (NEGATIVE) 02/07/19 17:59 Urine Blood Large (NEGATIVE) H 02/07/19 17:59 Urine Nitrate Negative (NEGATIVE) 02/07/19 17:59 Urine Bilirubin Negative (NEGATIVE) 02/07/19 17:59 Urine Urobilinogen 0.2 E.U./dL (<1 E.U./dL) 02/07/19 17:59 Ur Leukocyte Esterase Negative Rob[place]/uL (NEGATIVE) 02/07/19 17:59 Urine RBC 10 - 15 /hpf (0-2) H 02/07/19 17:59 Urine WBC 2 - 5 /hpf (0-6) 02/07/19 17:59 Ur Epithelial Cells 6 - 8 /hpf (0-5) H 02/07/19 17:59 Urine Bacteria Mod /hpf (NONE) 02/07/19 17:59 I have reviewed the lab results: Yes - RAD Interpretation Narrative RAD Interpretations (Text): 02/07/19 23:30 NM Lung Perfusion and Ventilation Scan. CLINICAL HISTORY: Pt. with sob. Elevated dimer, tightness in chest, dizziness and Nausea. TECHNIQUE: Ventilation images of the lungs were obtained after inhalation of the radiopharmceutical. Then, radiolabeled MAA was administered intravenously and planar images of the lungs were obtained in multiple projections. RADIOPHARMACEUTICAL: Ventilation: 27.0 mCi Technetium 99m-DTPA Perfusion: 3.0 mCi Technetium 99m-MAA COMPARISON: None provided. FINDINGS: VENTILATION: Some clumping of radioisotope is seen in the main stem bronchi bilaterally indicative of incomplete dispersion of radioisotope. No segmental ventilation defect. PERFUSION: No segmental perfusion defect. IMPRESSION: Normal VQ scan based on modified PIOPED criteria. Radiology Orders: 02/07/19 16:45 CHEST PORTABLE [RAD] Stat 02/07/19 18:45 LUNG PERFUSION SCAN [NM] Stat Track Walker: Radiologist - Medication Orders Current Medication Orders: Discontinued Medications Sodium Chloride (Sodium Chloride 0.9%) 1,000 mls @ 999 mls/hr IV .Q1H1M STA Stop: 02/07/19 17:46 Last Admin: 02/07/19 17:30 Dose: 999 mls/hr eMAR Start Stop Document 02/07/19 17:30 SS (Rec: 02/07/19 17:30 SS [id number]) Intravenous Solution Start Date 02/07/19 Start Time 17:30 End Date 02/07/19 End time 18:31 Total Infusion Time 61 Meclizine HCl (Antivert) 50 mg PO STAT STA Stop: 02/07/19 16:47 Last Admin: 02/07/19 17:30 Dose: 50 mg Disposition/Present on Arrival - Present on Arrival Any Indicators Present on Arrival: No History of DVT/PE: No History of Uncontrolled Diabetes: No Urinary Catheter: No History of Decub. Ulcer: No History Surgical Site Infection Following: None - Disposition Have Diagnosis and Disposition been Completed?: Yes Diagnosis: Hematuria, Pleuritic chest pain Disposition: HOME/ ROUTINE Disposition Time: 23:50 Patient Plan: Discharge Patient Problems: Current Active Problems Problem Status Onset Hematuria Acute Pleuritic chest pain Acute Condition: FAIR Discharge Instructions (ExitCare): Chest Pain (ED) Print Language: URDU Additional Instructions: Please follow up with your PCP IN 1 week Prescriptions: Meclizine [Antivert] 12.5 mg PO Q6H #10 tab Metoclopramide [Reglan] 10 mg PO Q6H #10 tab Referrals: Kraig Tolliver DO [Family Provider] - Follow up with primary Forms: [employer] (Gambian), WORK NOTE
[2019-02-08 01:31] VITALS: BP 140/80; PULSE 92
--- NOTE | 2019-02-08 13:10 | NM ---
Date of service: 02/07/2019 COMPARISON: February 07, 2019. Single-view chest TECHNIQUE: 27.0 mCi technetium 99-m DTPA aerosol. 3.0 mCI technetium 99-m MAA administered intravenously. FINDINGS: VENTILATION COMPONENT: Mildly heterogeneous ventilation. Retention of radionuclide in the tracheobronchial tree and ingestion of radionuclide in the stomach, incidental findings PERFUSION COMPONENT: Heterogeneous distribution of radionuclide. No geographic, segmental, lobar abnormalities apparent on the present examination. IMPRESSION: Low probability ventilation perfusion scan for pulmonary embolism.
== END 2019-02-08 01:38 | disposition home or self-care (01) ==
LOC: ED 16:18
DX: R31.9 Hematuria, unspecified (principal); R07.89 Other chest pain; I10 Essential (primary) hypertension; E05.90 Thyrotoxicosis, unspecified without thyrotoxic crisis or storm; Z87.891 Personal history of nicotine dependence
CPT/HCPCS: 71045; 78582; 80053; 81001; 81025; 83735; 84100; 84439; 84443; 84484; 85025; 85378; 93005; 96361; 96374; 99285; J2765; J7030

== ENCOUNTER 2019-02-15 19:11 | Emergency (ER) | payer MEDICAID ==
[2019-02-15 19:23] VITALS: RESP 18; TEMP 97.8; BMI 39.4
[2019-02-15] MEDS ORDERED: Albuterol-Ipratrop 3 mg / 0.5 (3 ml) UD IH STA (19:33)
--- NOTE | 2019-02-15 19:37 | ED PDOC ---
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 pt states was at baseline. took neb at home, but still felt like she was "going to get full blown asthma exacerbation". in er in nad. noted recent visit with normal labs neg vq. no fevers, Past Medical History - Past History Past History: Non-Contributing - Infectious Disease Hx of Infectious Diseases: None - Tetanus Immunization Tetanus Immunization: Unknown - Cardiac Hx Angina: No Hx Cardiac Arrhythmia: Yes Hx Circulatory Problems: No Hx Congestive Heart Failure: No Hx Heart Murmur: No Hx Heart Transplant: No Hx Hypertension: No Hx Hypotension: Yes Hx Internal Defibrillator: No Hx Mitral Valve Prolapse: No Hx Pacemaker: No Hx Peripheral Edema: No Hx Peripheral Vascular Disease: No - Pulmonary Hx Asthma: Yes Hx Bronchitis: Yes - Neurological Hx Neurological Disorder: Yes Hx Migraine: Yes - HEENT Hx HEENT Disorder: Yes (eyeglasses) - Renal Hx Renal Disorder: No - Endocrine/Metabolic Hx Hyperthyroidism: Yes - Hematological/Oncological Hx Blood Disorders: No - Integumentary Hx Dermatological Disorder: No - Musculoskeletal/Rheumatological Hx Falls: No - Gastrointestinal Hx Gastrointestinal Disorders: Yes (obese, chronic constipation) Hx Gastroesophageal Reflux: Yes - Genitourinary/Gynecological Hx Genitourinary Disorders: No Hx Urinary Tract Infection: (pt denies) - Psychiatric Hx Psychophysiologic Disorder: Yes Hx Anxiety: Yes Hx Depression: Yes Hx Substance Use: No - Surgical History Hx Cardiac Catheterization: No Hx Coronary Stent: No - Anesthesia Hx Anesthesia: Yes Hx Anesthesia Reactions: Yes (NAUSEA) Hx Malignant Hyperthermia: No - Suicidal Assessment Feels Threatened In Home Enviroment: No Family/Social History Family/Social History: Unknown Family HX Smoking Status: Former Smoker Hx Alcohol Use: No Hx Substance Use: No Hx Substance Use Treatment: No Allergies/Home Meds Allergies/Adverse Reactions: Allergies shellfish derived Allergy (Verified 12/25/18 10:21) ANAPHYLAXIS red 40 Allergy (Uncoded 12/25/18 10:21) ANAPHYLAXIS iv contrast Adverse Reaction (Uncoded 12/25/18 10:21) SHORTNESS OF BREATH Home Medications: Home Meds Medication Instructions Recorded Confirmed Budesonide/Formoterol Fumarate 1 aer IH DAILY 11/13/18 12/25/18 [Symbicort] Fluticasone Nasal [Flonase] 1 spr NS DAILY 11/13/18 12/25/18 Montelukast [Singulair] 10 mg PO DAILY 11/13/18 12/25/18 Review of Systems - Review of Systems Constitutional: Normal Eyes: Normal ENT: Normal Respiratory: SOB, Cough Cardiovascular: Normal Gastrointestinal: Normal Genitourinary Female: Normal Musculoskeletal: Normal Skin: Normal Neurological: Normal Endocrine: Normal Hemo/Lymphatic: Normal Psychiatric: Normal Physical Exam Vital Signs Temp Pulse Resp BP Pulse Ox 02/15/19 19:23 97.8 F 103 H 18 147/88 100 Temperature: Afebrile Blood Pressure: Normal Pulse: Regular Respiratory Rate: Normal Appearance: Positive for: Well-Appearing, Non-Toxic, Comfortable Pain Distress: None Mental Status: Positive for: Alert and Oriented X 3 - Systems Exam Head: Present: Atraumatic, Normocephalic Pupils: Present: PERRL Extroacular Muscles: Present: EOMI Conjunctiva: Present: Normal Mouth: Present: Moist Mucous Membranes Neck: Present: Normal Range of Motion Respiratory/Chest: Present: Good Air Exchange, Decreased Breath Sounds (symetrically, mild scartttered wheezing. ). No: Respiratory Distress, Accessory Muscle Use Cardiovascular: Present: Regular Rate and Rhythm, Normal S1, S2. No: Murmurs Abdomen: No: Tenderness, Distention, Peritoneal Signs Back: Present: Normal Inspection Upper Extremity: Present: Normal Inspection. No: Cyanosis, Edema Lower Extremity: Present: Normal Inspection. No: Edema Neurological: Present: GCS=15, CN II-XII Intact, Speech Normal Skin: Present: Warm, Dry, Normal Color. No: Rashes Psychiatric: Present: Alert, Oriented x 3, Normal Insight, Normal Concentration Medical Decision Making ED Course and Treatment: 02/16/19 03:00 mild ashtma exacerbation. in er in nad. cxr neg as read by me. observed asking for dc. noted recent v/q 1 week ago neg. no clincal sign of dvt. - RAD Interpretation Radiology Orders: 02/15/19 19:34 CXR [CHEST TWO VIEWS (PA/LAT)] [RAD] Stat - Medication Orders Current Medication Orders: Albuterol/Ipratropium (Duoneb 3 Mg/0.5 Mg (3 Ml) Ud) 3 ml IH STAT STA Stop: 02/15/19 19:33 Albuterol/Ipratropium (Duoneb 3 Mg/0.5 Mg (3 Ml) Ud) 3 ml IH STAT STA Stop: 02/15/19 19:34 Prednisone (Prednisone Tab) 50 mg PO STAT STA Stop: 02/15/19 19:35 Disposition/Present on Arrival - Present on Arrival Any Indicators Present on Arrival: No History of DVT/PE: No History of Uncontrolled Diabetes: No Urinary Catheter: No History of Decub. Ulcer: No History Surgical Site Infection Following: None - Disposition Have Diagnosis and Disposition been Completed?: Yes Diagnosis: Asthma, Asthma exacerbation Disposition: HOME/ ROUTINE Disposition Time: 21:00 Condition: STABLE Discharge Instructions (ExitCare): Asthma in Adults Additional Instructions: return to er with worsening symptosm or concerns. Prescriptions: Prednisone 50 mg PO DAILY #5 tab Referrals: [facility] [Outside] - Follow up with primary [facility] [place] - Follow up with primary Kraig Tolliver DO [Primary Care Provider] - Follow up with primary Forms: [employer] (Arabic)
[2019-02-15] MEDS: Albuterol-Ipratrop 3 mg / 0.5 (3 ml) UD IH STA ×2 (20:05→20:06)
[2019-02-15 22:22] VITALS: BP 134/72; PULSE 97; O2SAT 100
--- NOTE | 2019-02-16 08:59 | RAD ---
Date of service: 02/15/2019 HISTORY: asthma COMPARISON: 02/07/2019 TECHNIQUE: Chest PA and lateral views FINDINGS: LUNGS: No active pulmonary disease. PLEURA: No significant pleural effusion identified. No pneumothorax apparent. CARDIOVASCULAR: No aortic atherosclerotic calcification present. Normal cardiac size. No pulmonary vascular congestion. OSSEOUS STRUCTURES: No significant abnormalities. VISUALIZED UPPER ABDOMEN: Normal. OTHER FINDINGS: None. IMPRESSION: No active disease.
== END 2019-02-15 21:00 | disposition home or self-care (01) ==
LOC: ED 19:11
DX: J45.901 Unspecified asthma with (acute) exacerbation (principal)